=== PATIENT | female | born 1955 | race Caucasian/White ===

== ENCOUNTER 2018-07-28 22:37 | Observation (INO) | payer OTHER ==
[2018-07-29] LABS: Absolute Monocytes 0.2 K/uL (0.1-1.3); Absolute Neutrophil 4.1 K/uL (1.8-8.0); Basophils % 0.9 % (0-1.3); Lymphocytes % 39.7 % (15.3-44.8); MPV 10.9 fL (7.6-11.3); Monocytes % 3.1 % (3.3-12.3); RBC Red Blood Cell Count 4.76 M/uL (3.86-4.86)
[2018-07-29 00:07] LABS: Protime INR 1.07
[2018-07-29 00:23] LABS: ALT/SGPT 26 U/L (12-78); AST/SGOT 20 U/L (15-37); Albumin 4.1 g/dL (3.4-5.0); Alkaline Phosphatase 54 U/L (45-117); BUN Blood Urea Nitrogen 13 mg/dL (7-18); Bicarbonate 27 mmol/L (21-32); Bilirubin Direct < 0.1 mg/dL (0-0.2); Bilirubin Total 0.4 mg/dL (0.2-1.0); Glucose Level 132 mg/dL (74-106); Magnesium 2.1 mg/dL (1.8-2.4); NT PRO-BNP 1579 pg/mL (<125); Potassium 3.3 mmol/L (3.5-5.1); Protein, Total 7.7 g/dL (6.4-8.2); Sodium Level 138 mmol/L (136-145); Troponin (Emerg Dept Use Only) 0.25 ng/mL (0.0-0.045)
[2018-07-29 00:36] LABS: Urine Blood NEGATIVE (NEG); Urine Glucose NEGATIVE (NEG); Urine Protein NEGATIVE (NEG)
[2018-07-29] MEDS ORDERED: ACETAMINOPHEN 500 MG TAB PO PRN (00:46)
[2018-07-29] MEDS ORDERED: MORPHINE 4 MG/ML SYR IV PRN (00:46)
[2018-07-29] MEDS ORDERED: ALPRAZOLAM 0.25 MG TABLET PO PRN (00:46)
--- NOTE | 2018-07-29 00:51 | ER ---
Nurse's Notes [facility] Name: Dimple Cisneros Age: 63 yrs Sex: Female : 1955 Arrival Date: 07/28/2018 Time: 22:41 Bed 14 Private MD: Diagnosis: Unspecified atrial flutter;Chest pain, unspecified;Elevated Troponin Presentation: 07/28 22:40 Presenting complaint: EMS states: chest discomfort 45 minutes prior to consult. cc3 Transition of care: patient was not received from another setting of care. Onset of symptoms was July 28, 2018. Risk Assessment: Do you want to hurt yourself or someone else? Patient reports no desire to harm self or others. Initial Sepsis Screen: Does the patient meet any 2 criteria? No. Patient's initial sepsis screen is negative. Does the patient have a suspected source of infection? No. Patient's initial sepsis screen is negative. Care prior to arrival: Medication(s) given: patient took baby aspirin at home. 22:40 Method Of Arrival: EMS: [facility] cc3 22:40 Acuity: GERBER 3 cc3 Triage Assessment: 22:40 General: Appears in no apparent distress. comfortable, Behavior is calm, cooperative, cc3 appropriate for age. Pain: Complains of pain in central chest pain Pain currently is 3 out of 10 on a pain scale. EENT: No signs and/or symptoms were reported regarding the EENT system. Neuro: Level of Consciousness is awake, alert, obeys commands, Oriented to person, place, time, situation, Appropriate for age. Cardiovascular: Reports chest pain, since 45 minutes prior to consult Patient's skin is warm and dry. Respiratory: Airway is patent Respiratory effort is even, unlabored, Respiratory pattern is regular, symmetrical. GI: Abdomen is round non-distended. : No signs and/or symptoms were reported regarding the genitourinary system. Derm: No signs and/or symptoms reported regarding the dermatologic system. Musculoskeletal: Circulation, motion, and sensation intact. Range of motion: Swelling present in left arm. Historical: - Allergies: 22:40 Lortab; cc3 22:40 Augmentin; cc3 - Home Meds: 22:40 alprazolam 1 mg Oral tab 1 tab BID for Anxiety [Active]; aspirin 81 mg Oral chew 1 tab cc3 once daily [Active]; digoxin 125 mcg Oral tab 1 tab once daily [Active]; folic acid 400 mcg Oral tab 1 tab once daily [Active]; glyburide 5 mg Oral tab 1 tab 2 times per day [Active]; Glipizide Oral [Active]; hydrochlorothiazide 25 mg Oral tab 1 tab once daily [Active]; metoprolol tartrate 25 mg Oral tab 1 tab 2 times per day for Hypertension [Active]; [place]-3 Fish Oil Oral daily [Active]; Probiotic Oral daily [Active]; Vitamin D Oral 5000 unit daily [Active]; - PMHx: 22:40 Atrial Fib; Diabetes - NIDDM; Hypertension; melanoma; cc3 - PSHx: 22:40 melanoma skin cancer surgery; lymph node surgery; cc3 - Immunization history:: Adult Immunizations not up to date. - Social history:: Smoking status: Patient uses tobacco products, smokes one pack cigarettes per day. - Ebola Screening: : No symptoms or risks identified at this time. Screenin:40 Abuse screen: Denies threats or abuse. Denies injuries from another. Nutritional cc3 screening: No deficits noted. Tuberculosis screening: No symptoms or risk factors identified. Fall Risk Ambulatory Aid- None/Bed Rest/Nurse Assist (0 pts). Gait- Normal/Bed Rest/Wheelchair (0 pts) Mental Status- Oriented to own ability (0 pts). Assessment: 22:40 Pain: Pain radiates to back Pain began 45 minutes prior to consult. cc3 22:40 Reassessment: Noted to have IV cannula gauge 20 at the left forearm inserted by EMS. cc3 23:30 Reassessment: Patient appears in no apparent distress at this time. Patient and/or cc3 family updated on plan of care and expected duration. Pain level reassessed. Patient is alert, oriented x 3, equal unlabored respirations, skin warm/dry/pink. 07/29 00:15 Reassessment: Patient appears in no apparent distress at this time. Patient and/or cc3 family updated on plan of care and expected duration. Pain level reassessed. Patient is alert, oriented x 3, equal unlabored respirations, skin warm/dry/pink. 01:10 Reassessment: Patient appears in no apparent distress at this time. Patient and/or cc3 family updated on plan of care and expected duration. Pain level reassessed. Patient is alert, oriented x 3, equal unlabored respirations, skin warm/dry/pink. Patient for admission, room available in 405, called for report but was told that the nurse who will receive will call me back. 01:20 Reassessment: Report called and handed over to RN Julia Pacheco for continuity of care. cc3 01:50 Reassessment: Patient appears in no apparent distress at this time. Patient and/or cc3 family updated on plan of care and expected duration. Pain level reassessed. Patient is alert, oriented x 3, equal unlabored respirations, skin warm/dry/pink. Patient left ER for admission vitally stable escorted by county program technician Marlin and the patient's daughter. Vital Signs: 07/28 22:40 BP 156 / 74; Pulse 81; Resp 19 S; Temp 98.4(O); Pulse Ox 97% on R/A; Weight 108.86 kg cc3 (R); Height 5 ft. 5 in. (165.10 cm) (R); Pain 3/10; 23:15 BP 133 / 74; Pulse 78; Resp 18 S; Pulse Ox 96% on R/A; cc3 07/29 00:44 BP 151 / 72; Pulse 90; Resp 21 S; Pulse Ox 98% on R/A; cc3 01:14 BP 145 / 82; Pulse 88; Resp 20 S; Pulse Ox 97% on R/A; cc3 07/28 22:40 Body Mass Index 39.94 (108.86 kg, 165.10 cm) cc3 ED Course: 07/28 22:40 Patient maintains SpO2 saturation greater than 95% on room air. cc3 22:40 Arm band placed on right wrist. Patient notified of wait time. cc3 22:40 Placed in gown. Bed in low position. Call light in reach. Side rails up X 1. Cardiac cc3 monitor on. Pulse ox on. NIBP on. 22:41 Patient arrived in ED. bb 22:42 Emily Rogel is Primary Nurse. cc3 22:47 Triage completed. cc3 23:35 Inserted saline lock: 20 gauge in right forearm, using aseptic technique. Blood cc3 collected. 23:39 [facility] Winters F[facility]-C [facility]. kb 23:39 Balaji Zepeda MD is Attending Physician. kb 23:53 X-ray completed. Portable x-ray completed in exam room. Patient tolerated procedure sg4 well. 23:54 XRAY Chest (1 view) In Process Unspecified. EDMS 07/29 00:49 Jody Lombardo MD is Hospitalizing Provider. kb 01:20 No provider procedures requiring assistance completed. Patient admitted, IV remains in cc3 place. Administered Medications: 00:50 Drug: Aspirin Chewable Tablet 324 mg {Note: 3 tabs given now, 1 tab baby aspirin taken cc3 by patient at home at 2030H.} Route: PO; 01:15 Follow up: Response: No adverse reaction cc3 00:55 Drug: Lovenox 1 mg/kg Route: Sub-Q; Site: right lower abdomen; cc3 01:15 Follow up: Response: No adverse reaction cc3 Outcome: 00:50 Decision to Hospitalize by Provider. kb 01:20 Admitted to Tele accompanied by tech, family with patient, via stretcher, room 405, cc3 with chart, Report called to ADI Pacheco 01:20 Condition: stable 01:20 Instructed on the need for admit, Demonstrated understanding of instructions. 01:52 Patient left the ED. cc3 Signatures: Dispatcher [employer] EDMS Zarina Winters, ERGONOMIST-C ERGONOMIST-CkShavon Dickey RN RN bb Cordel, Charlene cc3 Yovana Finley sg4 Corrections: (The following items were deleted from the chart) 07/28 23:13 22:40 BP 156 / 74; Pulse 81bpm; Resp 19bpm; Spontaneous; Pulse Ox 97% RA; cc3 cc3 07/29 00:49 00:44 Pulse 90bpm; Resp 21bpm; Spontaneous; Pulse Ox 98% RA; cc3 cc3 03:43 07/28 22:40 Pain: Pain radiates to back Pain began 45 minutes prior to consult cc3 cc3
--- NOTE | 2018-07-29 00:52 | EDPHYS ---
Physician Documentation [facility] Name: Dimple Cisneros Age: 63 yrs Sex: Female : 1955 Arrival Date: 07/28/2018 Time: 22:41 Bed 14 Private MD: ED Physician Balaji Zepeda HPI: 07/29 00:51 This 63 yrs old Female presents to ER via EMS with complaints of Chest Pain. kb 00:51 The patient or guardian reports chest pain that is located primarily in the anterior kb chest wall, left. Onset: today. The pain radiates to Associated signs and symptoms: Pertinent positives: palpitations, Pertinent negatives: abdominal pain, cough, diaphoresis, dizziness, headache, lower extremity pain, lower extremity swelling, lightheadedness, nausea, near syncope, recent travel, shortness of breath, syncope, vomiting. The chest pain is described as aching. Duration: The patient or guardian reports multiple episodes. Modifying factors: The symptoms are alleviated by nothing. the symptoms are aggravated by nothing. Severity of pain: At its worst the pain was moderate in the emergency department the pain is unchanged. The patient has not experienced similar symptoms in the past. The patient has not recently seen a physician. Historical: - Allergies: 07/28 22:40 Lortab; cc3 22:40 Augmentin; cc3 - Home Meds: 22:40 alprazolam 1 mg Oral tab 1 tab BID for Anxiety [Active]; aspirin 81 mg Oral chew 1 tab cc3 once daily [Active]; digoxin 125 mcg Oral tab 1 tab once daily [Active]; folic acid 400 mcg Oral tab 1 tab once daily [Active]; glyburide 5 mg Oral tab 1 tab 2 times per day [Active]; Glipizide Oral [Active]; hydrochlorothiazide 25 mg Oral tab 1 tab once daily [Active]; metoprolol tartrate 25 mg Oral tab 1 tab 2 times per day for Hypertension [Active]; [place]-3 Fish Oil Oral daily [Active]; Probiotic Oral daily [Active]; Vitamin D Oral 5000 unit daily [Active]; - PMHx: 22:40 Atrial Fib; Diabetes - NIDDM; Hypertension; melanoma; cc3 - PSHx: 22:40 melanoma skin cancer surgery; lymph node surgery; cc3 - Immunization history:: Adult Immunizations not up to date. - Social history:: Smoking status: Patient uses tobacco products, smokes one pack cigarettes per day. - Ebola Screening: : No symptoms or risks identified at this time. ROS: 07/29 00:50 Constitutional: Negative for fever, chills, and weight loss, Neck: Negative for injury, kb pain, and swelling, Respiratory: Negative for shortness of breath, cough, wheezing, and pleuritic chest pain, Abdomen/GI: Negative for abdominal pain, nausea, vomiting, diarrhea, and constipation, Back: Negative for injury and pain, MS/Extremity: Negative for injury and deformity, Skin: Negative for injury, rash, and discoloration, Neuro: Negative for headache, weakness, numbness, tingling, and seizure. Cardiovascular: Positive for chest pain, palpitations, Negative for edema, orthopnea, paroxysmal nocturnal dyspnea. Exam: 00:51 Constitutional: This is a well developed, well nourished patient who is awake, alert, kb and in no acute distress. Head/Face: Normocephalic, atraumatic. Chest/axilla: Normal chest wall appearance and motion. Nontender with no deformity. No lesions are appreciated. Respiratory: Lungs have equal breath sounds bilaterally, clear to auscultation and percussion. No rales, rhonchi or wheezes noted. No increased work of breathing, no retractions or nasal flaring. Abdomen/GI: Soft, non-tender, with normal bowel sounds. No distension or tympany. No guarding or rebound. No evidence of tenderness throughout. Skin: Warm, dry with normal turgor. Normal color with no rashes, no lesions, and no evidence of cellulitis. MS/ Extremity: Pulses equal, no cyanosis. Neurovascular intact. Full, normal range of motion. Neuro: Awake and alert, GCS 15, oriented to person, place, time, and situation. Cranial nerves II-XII grossly intact. Motor strength 5/5 in all extremities. Sensory grossly intact. Cerebellar exam normal. Normal gait. 00:51 Cardiovascular: Rate: normal, Rhythm: irregularly irregular, Pulses: no pulse deficits are appreciated, Heart sounds: normal. Vital Signs: 07/28 22:40 BP 156 / 74; Pulse 81; Resp 19 S; Temp 98.4(O); Pulse Ox 97% on R/A; Weight 108.86 kg cc3 (R); Height 5 ft. 5 in. (165.10 cm) (R); Pain 3/10; 23:15 BP 133 / 74; Pulse 78; Resp 18 S; Pulse Ox 96% on R/A; cc3 07/29 00:44 BP 151 / 72; Pulse 90; Resp 21 S; Pulse Ox 98% on R/A; cc3 01:14 BP 145 / 82; Pulse 88; Resp 20 S; Pulse Ox 97% on R/A; cc3 07/28 22:40 Body Mass Index 39.94 (108.86 kg, 165.10 cm) cc3 MDM: 07/28 23:40 Patient medically screened. kb 07/29 00:49 Data reviewed: vital signs, nurses notes. Data interpreted: Pulse oximetry: on room air kb is 98 %. Interpretation: normal. Counseling: I had a detailed discussion with the patient and/or guardian regarding: the historical points, exam findings, and any diagnostic results supporting the discharge/admit diagnosis, lab results, radiology results, the need for further work-up and treatment in the hospital. Physician consultation: Jody Lombardo MD was contacted at 00:49, regarding admission, to the telemetry unit. patient's condition, and will see patient in ED, shortly. 07/28 23:40 Order name: Basic Metabolic Panel; Complete Time: 00:27 kb 07/28 23:40 Order name: CBC with Diff; Complete Time: 00:03 kb 07/28 23:40 Order name: LFT's; Complete Time: 00:27 kb 07/28 23:40 Order name: Magnesium; Complete Time: 00:27 kb 07/28 23:40 Order name: NT PRO-BNP; Complete Time: 00:27 kb 07/28 23:40 Order name: PT-INR; Complete Time: 00:27 kb 07/28 23:40 Order name: Troponin (emerg Dept Use Only); Complete Time: 00:27 kb 07/29 00:29 Order name: Urine Dipstick--Ancillary (enter results); Complete Time: 00:46 mw2 07/29 00:50 Order name: Basic Metabolic Panel EDMS 07/29 00:50 Order name: Basic Metabolic Panel EDMS 07/29 00:50 Order name: CBC with Automated Diff EDMS 07/29 00:50 Order name: CBC with Automated Diff EDMS 07/29 00:50 Order name: Lipid Profile EDMS 07/29 00:50 Order name: Lipid Profile EDMS 07/28 23:40 Order name: XRAY Chest (1 view) kb 07/28 23:40 Order name: EKG; Complete Time: 23:41 kb 07/28 23:40 Order name: Cardiac monitoring; Complete Time: 23:42 kb 07/28 23:40 Order name: EKG - Nurse/Tech; Complete Time: 23:42 kb 07/28 23:40 Order name: IV Saline Lock; Complete Time: 23:42 kb 07/28 23:40 Order name: Labs collected and sent; Complete Time: 23:42 kb 07/29 00:46 Order name: EKG; Complete Time: 00:46 kb 07/29 00:50 Order name: Heart Healthy [facility] 07/29 00:50 Order name: Echo with Doppler [facility] 07/29 00:50 Order name: EKG Electrocardiogram [facility] 07/29 00:50 Order name: EKG Electrocardiogram [facility] 07/29 00:50 Order name: Troponin I [facility] 07/29 00:50 Order name: Troponin I [facility] 07/29 00:50 Order name: Troponin I [facility] 07/28 23:40 Order name: O2 Per Protocol; Complete Time: 23:42 kb 07/28 23:40 Order name: O2 Sat Monitoring; Complete Time: 23:42 kb 07/29 00:46 Order name: EKG - Nurse/Tech; Complete Time: 00:59 kb Administered Medications: 00:50 Drug: Aspirin Chewable Tablet 324 mg {Note: 3 tabs given now, 1 tab baby aspirin taken cc3 by patient at home at 2030H.} Route: PO; 01:15 Follow up: Response: No adverse reaction cc3 00:55 Drug: Lovenox 1 mg/kg Route: Sub-Q; Site: right lower abdomen; cc3 01:15 Follow up: Response: No adverse reaction cc3 Disposition: 07/29/18 00:50 Hospitalization ordered by Jody Lombardo for Inpatient Admission. Preliminary diagnosis are Unspecified atrial flutter, Chest pain, unspecified, Elevated Troponin. - Bed requested for Telemetry/MedSurg (Inpatient). - Status is Inpatient Admission. cc3 - Condition is Stable. - Problem is new. - Symptoms are unchanged. UTI on Admission? No Signatures: Dispatcher [employer] EDMS Zarina Winters, OPTICAL LAB TECHNICIAN-C OPTICAL LAB TECHNICIAN-Fredydb Savanna Nolen RN RN Emily Rogel cc3 Corrections: (The following items were deleted from the chart) 00:55 00:50 Hospitalization Ordered by Jody Lombardo MD for Inpatient Admission. Preliminary mw diagnosis is Unspecified atrial flutter; Chest pain, unspecified; Elevated Troponin. Bed requested for Telemetry/MedSurg (Inpatient). Status is Inpatient Admission. Condition is Stable. Problem is new. Symptoms are unchanged. UTI on Admission? No. kb 01:52 00:55 07/29/2018 00:50 Hospitalization Ordered by Jody Lombardo MD for Inpatient cc3 Admission. Preliminary diagnosis is Unspecified atrial flutter; Chest pain, unspecified; Elevated Troponin. Bed requested for Telemetry/MedSurg (Inpatient). Status is Inpatient Admission. Condition is Stable. Problem is new. Symptoms are unchanged. UTI on Admission? No. mw
[2018-07-29 02:06] VITALS: BMI 36.9
[2018-07-29 07:19] LABS: HDL Cholesterol 26 mg/dL (40-60); LDL Cholesterol, Calculated ND (<130); Troponin I 0.25 ng/mL (0.0-0.045)
[2018-07-29 07:33] LABS: LDL, Direct 168 mg/dL (100-129)
--- NOTE | 2018-07-29 07:55 | P.HP ---
Certification for Inpatient Patient admitted to: Observation With expected LOS: <2 Midnights Patient will require the following post-hospital care: None Practitioner: I am a practitioner with admitting privileges, knowledge of patient current condition, hospital course, and medical plan of care. Services: Services provided to patient in accordance with Admission requirements found in Title 42 Section 412.3 of the Code of Federal Regulations Patient History Date of Service: 07/29/18 Reason for admission: Chest pain rule out acute coronary syndrome History of Present Illness: Patient is a 63-year-old female who comes into the hospital with chest pain. Pain was mainly in the sternal region. She has had a lot of stressors as she has had multiple family members . She also has a difficult relationship with her . She came to the emergency room for further evaluation. In the ER her initial troponin was elevated. Her chest pain is pretty much resolved. She has no complaints at this time. Hemodynamically she is stable. At this time will admit patient to the hospital for further workup. Cardiology consultation is pending. Allergies acetaminophen [From Lortab] Allergy (Verified 07/29/18 02:37) Hives/Rash hydrocodone [From Lortab] Allergy (Verified 07/29/18 02:37) Hives/Rash amoxicillin [From Augmentin] Adverse Reaction (Verified 07/29/18 02:37) Hives/Rash clavulanic acid [From Augmentin] Adverse Reaction (Verified 07/29/18 02:37) Hives/Rash Home Medications: ALPRAZolam [Xanax*] 1 mg PO BID 07/24/15 Aspirin Chewable [Aspirin Chewable*] 81 mg PO BEDTIME 07/24/15 Digoxin [Digitek] 125 mcg PO DAILY 07/24/15 Folic Acid/Vit Bcomp,C [Balanced B-Complex Caplet] 500 mcg PO BEDTIME 07/24/15 Glyburide [Diabeta] 2.5 mg PO DAILY 07/24/15 hydroCHLOROthiazide [Hydrodiuril*] 25 mg PO DAILY 07/24/15 Cholecalciferol (Vitamin D3) [Vitamin D 5,000 IU Cap*] 1 cap PO DAILY 07/29/18 - Past Medical/Surgical History Has patient received pneumonia vaccine in the past: No Diabetic: Yes -: Diabetes mellitus, diet controlled -: Lymphoma -: Metastatic melanoma -: Atrial fibrillation -: Depression -: Hyperlipidemia -: Tobacco abuse -: Mastoid Ear Surgery 1973 -: Hysterectomy 1978 -: Lymph node resection left arm -: Melanoma removal left arm -: tooth pick removal on left foot Psychosocial/ Personal History: The patient is . She has 6 children. - Family History Mother Medical History: Heart disease, Hypertension Brother Medical History: Heart disease, Cancer - Social History Smoking Status: Current every day smoker Alcohol use: No CD- Drugs: No Caffeine use: No Place of Residence: Home Review of Systems 10-point ROS is otherwise unremarkable Physical Examination - Vital Signs Temperature: 97.7 F Blood Pressure: 120/69 Pulse: 76 Respirations: 18 Pulse Ox (%): 96 - Physical Exam General: Alert, In no apparent distress, Oriented x3 HEENT: Atraumatic, PERRLA, Mucous membr. moist/pink, EOMI, Sclerae nonicteric Neck: Supple, 2+ carotid pulse no bruit, No LAD, Without JVD or thyroid abnormality Respiratory: Clear to auscultation bilaterally, Normal air movement Cardiovascular: Regular rate/rhythm, Normal S1 S2, No murmurs Gastrointestinal: Normal bowel sounds, Soft and benign, Non-distended, No tenderness Musculoskeletal: No clubbing, No swelling, No tenderness Integumentary: No rashes Neurological: Normal gait, Normal speech, Normal strength at 5/5 x4 extr, Normal tone, Sensation intact, Cranial nerves 3-12 intact, Normal affect Lymphatics: No axilla or inguinal lymphadenopathy - Studies Laboratory Data (last 24 hrs) 07/28/18 23:35: PT 12.6 H, INR 1.07 07/28/18 23:35: WBC 7.5, Hgb 15.6 H, Hct 45.0, Plt Count 200 07/28/18 23:35: Sodium 138, Potassium 3.3 L, BUN 13, Creatinine 0.92, Glucose 132 H, Magnesium 2.1, Total Bilirubin 0.4, AST 20, ALT 26, Alkaline Phosphatase 54 Assessment & Plan - Problems (Diagnosis) (1) A-fib Onset Date: 09/01/16 Current Visit: No Status: Acute (2) Diabetes Current Visit: No Status: Acute (3) Elevated troponin Current Visit: No Status: Acute (4) Hx of breast cancer Current Visit: No Status: Acute (5) Morbid obesity with BMI of 40.0-44.9, adult Current Visit: No Status: Acute (6) Depression Current Visit: No Status: Chronic Qualifiers: (7) Diabetes mellitus Current Visit: No Status: Chronic Qualifiers: (8) History of melanoma Current Visit: No Status: Chronic (9) Hyperlipidemia Current Visit: No Status: Chronic Qualifiers: (10) Hypertension Current Visit: No Status: Chronic Qualifiers: (11) Tobacco abuse Current Visit: No Status: Chronic - Plan 1. Serial troponins and EKG 2. Cardiology consultation 3. Echocardiogram and stress test may need to be done as an outpatient; we will await Cardiology input 4. Anti-platelet therapy, anti coagulation, beta-scott, statin, and O2 as needed 5. IV morphine for pain 6. Nitro p.r.n. 7. She may benefit from an antidepressant with so much going on around her. 8. GI and DVT prophylaxis Discharge Plan: Home Plan to discharge in: 48 Hours - Advance Directives Does patient have a Living Will: No Does patient have a Durable POA for Healthcare: No - Code Status/Comfort Care Code Status Assessed: Yes Code Status: Full Code Critical Care: No Time Spent Managing PTS Care (In Minutes): 50
[2018-07-29] MEDS ORDERED: METOPROLOL TAR 50 MG TAB PO SCH (09:00)
[2018-07-29] MEDS ORDERED: ASPIRIN EC 81 MG TAB PO SCH (09:00)
[2018-07-29] MEDS ORDERED: LISINOPRIL 10 MG TAB PO SCH (09:00)
[2018-07-29] MEDS ORDERED: DIGOXIN 0.125 MG TABLET PO SCH (09:00)
[2018-07-29] MEDS ORDERED: VITAMIN D 5,000 UNIT CAP PO SCH (09:00)
[2018-07-29] MEDS ORDERED: ALPRAZOLAM 1 MG TABLET PO SCH (09:00)
--- NOTE | 2018-07-29 10:50 | RAD REPORT ---
EXAM DESCRIPTION: Tanya Single View07/28/2018 11:54 pm CLINICAL HISTORY: Chest pain COMPARISON: September 2017 FINDINGS: The lungs appear clear of acute infiltrate. The heart is mildly enlarged IMPRESSION: No acute abnormalities displayed
[2018-07-29] MEDS ORDERED: POTASSIUM CL SA 10 MEQ TAB PO ONE ×3 (10:58→11:18)
[2018-07-29] MEDS ORDERED: ENOXAPARIN 100 MG/ML SYR SQ SCH (11:30)
[2018-07-29 12:31] VITALS: O2SAT 96
[2018-07-29] MEDS ORDERED: NITROGLYCERIN 0.4 MG/TAB SL PRN (13:16)
--- NOTE | 2018-07-29 13:16 | P.PN ---
Subjective Date of Service: 07/29/18 Primary Care Provider: Dr. Dooley; Cardiology-Dr. Jean Chief Complaint: Chest pain rule out acute coronary syndrome Subjective: Improving Physical Examination - Vital Signs Temperature: 97.0 F Blood Pressure: 120/80 Pulse: 70 Respirations: 18 Pulse Ox (%): 96 - Physical Exam General: Alert, In no apparent distress, Oriented x3, Cooperative HEENT: Atraumatic Neck: Supple Respiratory: Clear to auscultation bilaterally, Normal air movement Cardiovascular: Irregular heart rate/rhythm (Atrial fibrillation, rate controlled) Gastrointestinal: Normal bowel sounds, Soft and benign, Non-distended, No tenderness, No masses, No rebound, No guarding Musculoskeletal: No erythema, No tenderness, No warmth Integumentary: No tenderness/swelling, No erythema, No warmth, No cyanosis Neurological: Normal speech, Normal strength at 5/5 x4 extr, Normal tone - Studies Laboratory Data (last 24 hrs) 07/28/18 23:35: PT 12.6 H, INR 1.07 07/28/18 23:35: WBC 7.5, Hgb 15.6 H, Hct 45.0, Plt Count 200 07/28/18 23:35: Sodium 138, Potassium 3.3 L, BUN 13, Creatinine 0.92, Glucose 132 H, Magnesium 2.1, Total Bilirubin 0.4, AST 20, ALT 26, Alkaline Phosphatase 54 Medications List Reviewed: Yes Assessment & Plan Discharge Plan: Home Plan to discharge in: 48 Hours Physician Review Additional Text: Impression: Chest pain with noted elevated troponin likely underlying CAD with unstable angina Hypertension Diabetes mellitus Chronic atrial fibrillation not on chronic anti coagulation therapy Hyperlipidemia Plan: Chest pain with noted elevated troponin likely underlying CAD with unstable angina: Patient on anti coagulation therapy. Continue with aspirin and blood pressure control. Troponin improved. Will discuss with Cardiology for recommendation. Patient may require further evaluation. Hypertension: Continue with blood pressure medication. Will monitor and adjust appropriately. Diabetes mellitus: Will continue with Accu-Cheks and sliding scale. Will check A1c. Chronic atrial fibrillation not on chronic anti coagulation therapy: Continue monitor closely. Await further recommendations from cardiology. Hyperlipidemia: Will start Lipitor. Time Spent Managing Pts Care (In Minutes): 55
[2018-07-29] MEDS ORDERED: GLUCAGON 1 MG/VIAL IM PRN (14:05)
[2018-07-29] MEDS ORDERED: D50W 25 GM/50 ML SYRINGE IV PRN (14:05)
--- NOTE | 2018-07-29 14:14 | EKG ---
Test Date: 2018-07-28 Test Time: 23:18:12 Editor & Co Founder: JAN MEASUREMENT RESULTS: Intervals: Rate: 86 MS: QRSD: 82 QT: 380 QTc: 454 [place]: P: MS: QRS: 57 T: 159 INTERPRETIVE STATEMENTS: Atrial fibrillation Minimal voltage criteria for LVH, may be normal variant Septal infarct, age undetermined ST & T wave abnormality, consider lateral ischemia Abnormal ECG Compared to ECG 09/23/2017 14:38:24 Left ventricular hypertrophy now present Myocardial infarct finding now present Possible ischemia now present ST (T wave) deviation still present Electronically Signed On 07-29-18 14:13:02 MANAGER PHOTO by Anthony Jean
--- NOTE | 2018-07-29 14:14 | EKG ---
Test Date: 2018-07-29 Test Time: 00:49:37 Heel Scourer: JAN MEASUREMENT RESULTS: Intervals: Rate: 82 NM: QRSD: 82 QT: 414 QTc: 483 [place]: P: NM: QRS: 41 T: 188 INTERPRETIVE STATEMENTS: Atrial fibrillation Minimal voltage criteria for LVH, may be normal variant ST & T wave abnormality, consider lateral ischemia Prolonged QT Abnormal ECG Compared to ECG 07/28/2018 23:18:12 Prolonged QT interval now present Myocardial infarct finding no longer present ST (T wave) deviation still present Possible ischemia still present Electronically Signed On 07-29-18 14:13:00 ACID CONDITIONING WORKER by Anthony Jean
[2018-07-29] MEDS ORDERED: INSULIN -REGULAR HUMAN 50 UNIT/0.5 ML ML SQ SCH (16:30)
--- NOTE | 2018-07-29 16:31 | P.DS ---
Admission Date: 07/29/18 Discharge Date: 07/29/18 Primary Care Provider: Dr. Dooley; Cardiology-Dr. Jean Disposition: ROUTINE DISCHARGE Discharge Condition: GOOD Reason for Admission: Chest pain rule out acute coronary syndrome Consultations: Cardiology-Dr. Jean Procedures: Medical problem list: Chest pain with noted elevated troponin likely underlying CAD with unstable angina Hypertension Diabetes mellitus Chronic atrial fibrillation not on chronic anti coagulation therapy Hyperlipidemia Depression with Anxiety Brief History of Present Illness: 63-year-old female presented to the emergency room with chest pain. Patient with history of atrial fibrillation, hypertension, diabetes and depression. Patient under a great deal of stress at home. Patient was evaluated in the emergency room. Troponin slightly elevated. Patient was admitted for further evaluation. Hospital Course: Patient presented with chest pain. Patient with history of atrial fibrillation not on chronic anti coagulation therapy, hypertension, diabetes and hyperlipidemia. Patient evaluated by Cardiology. Cardiology has seen patient in the past. Previous heart catheterization 2 years ago showed normal coronaries. Patient had slight elevation in troponin but this improved. Chest pain resolved. Cardiology recommends to continue with aspirin 81 mg daily. Patient will follow up with Cardiology this week for outpatient stress test. No need for cardiac intervention at this time. Patient will be given nitroglycerin to be use as needed for chest pain. Patient with hypertension. Blood pressure slightly elevated. Medications adjusted. Hydrochlorothiazide discontinued. Metoprolol has been increased. New medication includes lisinopril. At discharge she will continue with lisinopril 10 mg daily and metoprolol 50 mg 1 pill twice daily. Recommendation is to maintain blood pressures less 150/80. Further adjustment can be done by her PCP or cardiology. Patient has diabetes mellitus type 2. At discharge she will continue with Diabeta 2.5 mg daily. Recommendation is to maintain blood sugars less 140 fasting and less than 200 after meals. Further adjustment can be done by her PCP. Patient has hyperlipidemia. New medications includes Lipitor. At discharge she will continue with Lipitor 40 mg daily. Patient with depression and anxiety. Patient may continue with Xanax as needed for anxiety. Recommend for patient to follow up with her PCP to further address. Patient may require further medication and follow up with psychiatry or counselor. Patient with recent stressors. Vital Signs/Physical Exam: Temp Pulse Resp BP Pulse Ox 97.0 F 70 18 120/80 96 07/29/18 13:15 07/29/18 13:15 07/29/18 13:15 07/29/18 13:15 07/29/18 13:15 General: Alert, In no apparent distress, Oriented x3, Cooperative HEENT: Atraumatic Neck: Supple Respiratory: Clear to auscultation bilaterally, Normal air movement Cardiovascular: Normal pulses, Regular rate/rhythm Gastrointestinal: Normal bowel sounds, Soft and benign, Non-distended, No tenderness, No masses, No rebound, No guarding Musculoskeletal: No erythema, No tenderness, No warmth Integumentary: No tenderness/swelling, No erythema, No warmth, No cyanosis Neurological: Normal speech, Normal strength at 5/5 x4 extr, Normal tone, Normal affect Laboratory Data at Discharge: WBC 7.5 K/uL (4.3-10.9) 07/28/18 23:35 Hgb 15.6 g/dL (12.0-15.0) H 07/28/18 23:35 Hct 45.0 % (36.0-45.0) 07/28/18 23:35 Plt Count 200 K/uL (152-406) 07/28/18 23:35 PT 12.6 SECONDS (9.5-12.5) H 07/28/18 23:35 INR 1.07 07/28/18 23:35 Sodium 138 mmol/L (136-145) 07/28/18 23:35 Potassium 3.3 mmol/L (3.5-5.1) L 07/28/18 23:35 BUN 13 mg/dL (7-18) 07/28/18 23:35 Creatinine 0.92 mg/dL (0.55-1.3) 07/28/18 23:35 Glucose 132 mg/dL (74-106) H 07/28/18 23:35 Magnesium 2.1 mg/dL (1.8-2.4) 07/28/18 23:35 Total Bilirubin 0.4 mg/dL (0.2-1.0) 07/28/18 23:35 AST 20 U/L (15-37) 07/28/18 23:35 ALT 26 U/L (12-78) 07/28/18 23:35 Alkaline Phosphatase 54 U/L (45-117) 07/28/18 23:35 Troponin I 0.20 ng/mL (0.0-0.045) H 07/29/18 14:09 Triglycerides 501 mg/dL (<150) H 07/29/18 06:25 Cholesterol 264 mg/dL (<200) H 07/29/18 06:25 LDL Cholesterol Direct 168 mg/dL (100-129) H 07/29/18 06:25 HDL Cholesterol 26 mg/dL (40-60) L 07/29/18 06:25 Cholesterol/HDL Ratio 10.15 07/29/18 06:25 Home Medications: ALPRAZolam [Xanax*] 1 mg PO BID 07/24/15 Aspirin Chewable [Aspirin Chewable*] 81 mg PO BEDTIME 07/24/15 Digoxin [Digitek] 125 mcg PO DAILY 07/24/15 Folic Acid/Vit Bcomp,C [Balanced B-Complex Caplet] 500 mcg PO BEDTIME 07/24/15 Glyburide [Diabeta] 2.5 mg PO DAILY 07/24/15 Atorvastatin Calcium [Lipitor] 40 mg PO BEDTIME #30 tab 07/29/18 Cholecalciferol (Vitamin D3) [Vitamin D 5,000 IU Cap*] 1 cap PO DAILY 07/29/18 Lisinopril [Prinivil*] 10 mg PO DAILY #30 tab 07/29/18 Metoprolol Tartrate [Lopressor*] 50 mg PO BID #60 tab 07/29/18 Nitroglycerin [Nitrostat*] 0.4 mg SL UD PRN #30 tab 07/29/18 New Medications: Atorvastatin Calcium [Lipitor] 40 mg PO BEDTIME #30 tab Lisinopril [Prinivil*] 10 mg PO DAILY #30 tab Metoprolol Tartrate [Lopressor*] 50 mg PO BID #60 tab Nitroglycerin [Nitrostat*] 0.4 mg SL UD PRN #30 tab PRN Reason: Chest Pain Patient Discharge Instructions: 1. Patient will follow up with her PCP within 1 week and with Cardiology in 1 week to follow up this hospitalization. 2. Patient presented with chest pain. Patient with history of atrial fibrillation not on chronic anti coagulation therapy, hypertension, diabetes and hyperlipidemia. Patient evaluated by Cardiology. Cardiology has seen patient in the past. Previous heart catheterization 2 years ago showed normal coronaries. Patient had slight elevation in troponin but this improved. Chest pain resolved. Cardiology recommends to continue with aspirin 81 mg daily. Patient will follow up with Cardiology this week for outpatient stress test. No need for cardiac intervention at this time. Patient will be given nitroglycerin to be use as needed for chest pain. 3. Patient with hypertension. Blood pressure slightly elevated. Medications adjusted. Hydrochlorothiazide discontinued. Metoprolol has been increased. New medication includes lisinopril. At discharge she will continue with lisinopril 10 mg daily and metoprolol 50 mg 1 pill twice daily. Recommendation is to maintain blood pressures less 150/80. Further adjustment can be done by her PCP or cardiology. 4. Patient has diabetes mellitus type 2. At discharge she will continue with Diabeta 2.5 mg daily. Recommendation is to maintain blood sugars less 140 fasting and less than 200 after meals. Further adjustment can be done by her PCP. 5. Patient has hyperlipidemia. New medications includes Lipitor. At discharge she will continue with Lipitor 40 mg daily. 6. Patient with depression and anxiety. Patient may continue with Xanax as needed for anxiety. Recommend for patient to follow up with her PCP to further address. Patient may require further medication and follow up with psychiatry or counselor. Patient with recent stressors. Diet: AHA Activity: Ad nabil Time spent managing pt's care (in minutes): 55
[2018-07-29 16:55] VITALS: BP 102/59; TEMP 96.6
[2018-07-29] MEDS ORDERED: ATORVASTATIN 40 MG TAB PO SCH (21:00)
[2018-07-29] MEDS ORDERED: VITAMIN B COMPLEX 1 CAP PO SCH (21:00)
--- NOTE | 2018-07-31 00:22 | CON ---
Date of Consultation: 07/29/[address] Mendez' service on 07/29/2018. I saw the patient on 07/29/2018. Reason For Consultation: Chest pain and atrial fibrillation. History Of Present Illness: Ms. Cisneros is a 63-year-old woman. She is very well known to me from prev ious office visits and admission. She has paroxysmal atrial fibrillation, diabetes, hypertension, [place] PD. Has a history of melanoma in the past. She has refused to be on anticoagulants in the past. Tomlin s been under a lot of stress. Had a rapid episode of atrial fibrillation with some chest pain with i t and came into the emergency room. She is feeling much better now. Denies nausea, vomiting, diapho resis, PND, orthopnea, pedal edema, or syncope. She had a troponin of 0.25. BNP was 1579. Her trig lyceride was 501, cholesterol of 264, and LDL of 108. Allergies: INCLUDE TYLENOL, CODEINE, AND AUGMENTIN. Review of Systems: Negative. Social History: Negative. Family History: Positive for heart disease, both sides of the family. Medications: Include Xanax, aspirin, digoxin, hydrochlorothiazide, and glyburide. Physical Examination: General: Ms. Cisneros was in no acute distress. She was just anxious. She was in atrial fibrillation a t a rate of about 80. Afebrile. HEENT: Negative. Neck: Supple without any bruit, lymphadenopathy, JVD, or thyromegaly. Chest: Clear to auscultation and percussion. Cardiac: Revealed atrial fibrillation. No murmurs, gallops, or rubs. Abdomen: Benign. Extremities: Revealed no clubbing, cyanosis, or edema. Neurological: Nonfocal. Skin: Dry and intact. She has adequate pulses bilaterally distally in the lower extremities. Diagnostic Data: As stated earlier. Also included was a normal heart catheterization in 2013. Impression And Plan: 1.Elevated troponin secondary to atrial fibrillation. 2.Elevated BNP secondary to atrial fibrillation. 3.Dyslipidemia, not treated. She needs to be on a statin and possibly fenofibrate. 4.Anxiety. 5.Hypertension. 6.Diabetes. 7.History of melanoma. Ms. Cisneros had a normal heart catheterization in 2013. I certainly would not keep her in the hospital for any further cardiac workup. I brought up the issue of anticoagulation. She again refuses except for aspirin. I think it has been 5 years since her heart catheterization, and she has many risk fac tors as stated earlier including tobacco use, and I believe another echocardiogram and Lexiscan shoul d be done, and I can certainly do that as an outpatient. LUÍS/BREE Voice ID: [id number] Report ID: [id number]
== END 2018-07-29 17:32 | disposition home or self-care (01) ==
LOC: ER 22:37 → ERHOLD 07-29 00:47 → 4TH 07-29 01:23
PROVIDERS: ADMIT Hospitalist; ATTEND Hospitalist
DX: R07.9 Chest pain, unspecified (principal); R79.89 Other specified abnormal findings of blood chemistry; E11.9 Type 2 diabetes mellitus without complications; I48.91 Unspecified atrial fibrillation; E78.5 Hyperlipidemia, unspecified; I10 Essential (primary) hypertension; E66.01 Morbid (severe) obesity due to excess calories; Z68.37 Body mass index [BMI] 37.0-37.9, adult; F41.8 Other specified anxiety disorders; Z85.820 Personal history of malignant melanoma of skin; Z85.3 Personal history of malignant neoplasm of breast; F17.210 Nicotine dependence, cigarettes, uncomplicated; Z88.0 Allergy status to penicillin
CPT/HCPCS: 36415; 71045; 80048; 80061; 80076; 81003; 82962; 83735; 83880; 84484; 85025; 85610; 93005; G0378; J1650

== ENCOUNTER 2020-02-28 01:58 | Observation (INO) | payer OTHER ==
[2020-02-28 03:13] LABS: Protime INR 1.08
[2020-02-28 03:15] LABS: Absolute Lymphocytes (CBC) 3.1 K/uL (0.7-4.9); Basophils % 0.7 % (0-1.3); Hematocrit 43.7 % (36.0-45.0); Lymphocytes % 42.4 % (15.3-44.8); MPV 11.1 fL (7.6-11.3); RBC Red Blood Cell Count 4.76 M/uL (3.86-4.86)
[2020-02-28] MEDS ORDERED: ASPIRIN 81 MG CHEWABLE TABLET ONE (04:07)
[2020-02-28 04:08] LABS: Albumin 3.9 g/dL (3.4-5.0); Bilirubin Direct 0.1 mg/dL (0-0.2); Bilirubin Total 0.5 mg/dL (0.2-1.0); Protein, Total 7.8 g/dL (6.4-8.2); Troponin (Emerg Dept Use Only) 0.36 ng/mL (0.0-0.045)
[2020-02-28 04:12] LABS: Magnesium 2.3 mg/dL (1.8-2.4); Potassium 3.8 mmol/L (3.5-5.1)
--- NOTE | 2020-02-28 04:15 | ER ---
Nurse's Notes [facility] – [place], [place] Name: Dimple Cisneros Age: 65 yrs Sex: Female : 1955 Arrival Date: 02/28/2020 Time: 02:04 Bed 5 Private MD: Diagnosis: Transient Ischemic Attack Presentation: 02/27 02:05 Chief complaint: Patient states: Generalized weakness to legs since yesterday morning lp1 at 1000; States intermittent leg weakness; tonight she was attempting to put out her cigarette and "I could not make my arm do what I wanted it to"; patient able to stand and transfer to bed, states legs feeling weak. Coronavirus screen: Client denies travel out of the [place] in the last 14 days. At this time, the client does not indicate any symptoms associated with coronavirus-19. Ebola Screen: No symptoms or risks identified at this time. Risk Assessment: Do you want to hurt yourself or someone else? Patient reports no desire to harm self or others. Onset of symptoms was February 27, 2020 at 22:00. 02:05 Method Of Arrival: EMS: [facility] lp1 02:05 Acuity: GERBER 3 lp1 02:08 Care prior to arrival: Glucose check: 167. lp1 02:10 Initial Sepsis Screen: Does the patient meet any 2 criteria? No. Patient's initial rr5 sepsis screen is negative. Does the patient have a suspected source of infection? No. Patient's initial sepsis screen is negative. Historical: - Allergies: 02:07 Augmentin; lp1 02:07 Lortab; lp1 - Home Meds: 02:50 alprazolam 1 mg Oral tab 1 tab BID for Anxiety [Active]; aspirin 81 mg Oral chew 1 tab rr5 once daily [Active]; digoxin 125 mcg Oral tab 1 tab once daily [Active]; folic acid 400 mcg Oral tab 1 tab once daily [Active]; Glipizide Oral [Active]; glyburide 5 mg Oral tab 1 tab 2 times per day [Active]; hydrochlorothiazide 25 mg Oral tab 1 tab once daily [Active]; metoprolol tartrate 25 mg Oral tab 1 tab 2 times per day for Hypertension [Active]; [place]-3 Fish Oil Oral daily [Active]; Probiotic Oral daily [Active]; Vitamin D Oral 5000 unit daily [Active]; - PMHx: 02:07 Atrial Fib; Diabetes - NIDDM; Hypertension; melanoma; lp1 - PSHx: 02:50 Hysterectomy; rr5 - Immunization history:: Adult Immunizations up to date. - Social history:: Smoking status: Patient reports the use of cigarette tobacco products. Screenin:07 Abuse screen: Denies threats or abuse. Denies injuries from another. Nutritional lp1 screening: No deficits noted. Tuberculosis screening: No symptoms or risk factors identified. Fall Risk Total Patrick Fall Scale indicates High Risk Score (45 or more points). Fall prevention measures have been instituted. Side Rails Up X 2 As available patient and family educated on Fall Prevention Program and Strategies. 02:25 VAN Screening: Arm Drift: Patient shows no arm weakness. Patient is VAN negative. rr5 02:47 Patient has been NPO before screening. The patient is alert, able to follow commands. rr5 The patient does not exhibit slurred or garbled speech The patient is not exhibiting difficulty speaking. The patient does not exhibit difficulty understanding words. The patient is able to swallow own secretions with no drooling or need for suction. Patient tolerated one teaspoon of water. No drooling, immediate coughing, gurgling, or clearing of the throat was noted. The patient tolerated 90mL of water. No drooling, immediate coughing, gurgling, or clearing of the throat was noted. The patient passed the bedside swallow screening. Oral medications may be given as ordered. Contact Physician for further diet orders. Assessment: 02:10 General: Appears in no apparent distress. comfortable, Behavior is calm, cooperative, rr5 appropriate for age. 02:10 Pain: Denies pain. Neuro: Level of Consciousness is awake, alert, obeys commands, rr5 Oriented to person, place, time, situation, Flap Maker are equal bilaterally Moves all extremities. Full function Gait is steady, Speech is normal, Facial symmetry appears normal, Reports weakness in general. Cardiovascular: Capillary refill < 3 seconds Patient's skin is warm and dry. Respiratory: Airway is patent Respiratory effort is even, unlabored, Respiratory pattern is regular, symmetrical. GI: No signs and/or symptoms were reported involving the gastrointestinal system. : No signs and/or symptoms were reported regarding the genitourinary system. EENT: No signs and/or symptoms were reported regarding the EENT system. Derm: Skin is intact, is healthy with good turgor, Skin temperature is warm. Musculoskeletal: Circulation, motion, and sensation intact. Capillary refill < 3 seconds. 03:10 Reassessment: Patient appears in no apparent distress at this time. Patient and/or vc family updated on plan of care and expected duration. Pain level reassessed. Patient is alert, oriented x 3, equal unlabored respirations, skin warm/dry/pink. Assumed care of patient from Karl Castaneda RN. 04:14 Reassessment: Patient appears in no apparent distress at this time. Patient and/or vc family updated on plan of care and expected duration. Pain level reassessed. Patient is alert, oriented x 3, equal unlabored respirations, skin warm/dry/pink. Admitting provider at bedside. 05:35 Reassessment: See [facility] for further charting. vc Vital Signs: 02:10 BP 176 / 67; Pulse 86; Resp 19; Temp 98; Pulse Ox 95% ; Weight 99.34 kg; Height 5 ft. 5 rr5 in. (165.10 cm); 02:45 BP 148 / 76; Pulse 84; Resp 17; Pulse Ox 99% ; rr5 02:10 Body Mass Index 36.44 (99.34 kg, 165.10 cm) rr5 Jenifer Coma Score: 02:05 Eye Response: spontaneous(4). Verbal Response: oriented(5). Motor Response: obeys rr5 commands(6). Total: 15. ED Course: 02:04 Patient arrived in ED. lp1 02:06 Triage completed. lp1 02:06 Arm band placed on. lp1 02:09 Phi Shirley MD is Attending Physician. 7 02:15 Patient has correct armband on for positive identification. Placed in gown. Bed in low rr5 position. Call light in reach. Side rails up X2. post exchange manager on. Pulse ox on. NIBP on. 02:24 Karl Castaneda RN is Primary Nurse. rr5 02:30 Urine collected: clean catch specimen, clear. rr5 02:46 Inserted saline lock: 20 gauge in right forearm, using aseptic technique. Blood rr5 collected. 02:46 EKG done, by ED staff, reviewed by Phi Shirley MD. rr5 02:59 XRAY Chest (1 view) In Process Unspecified. EDMS 03:27 CT Head Brain wo Cont In Process Unspecified. EDMS 04:09 Primary Nurse role handed off by Karl Castaneda, ADI vc 04:09 Farnaz Costa, ADI is Primary Nurse. vc 04:13 Aayush Rivera MD is Hospitalizing Provider. [facility] 05:34 No provider procedures requiring assistance completed. Patient admitted, IV remains in vc place. Administered Medications: 04:01 Drug: Aspirin Chewable Tablet 324 mg Route: PO; vc 06:34 Follow up: Response: No adverse reaction vc Outcome: 04:15 Decision to Hospitalize by Provider. 7 05:34 Admitted to ER Hold. Please see [facility] for further documentation. 05:34 Condition: stable 05:34 Instructed on the need for admit. 10:01 Patient left the ED. Signatures: Dispatcher [employer] EDKS Juanita Paige RN RN Liliana Kramer RN RN lp1 Karl Castaneda, ADI RN rr5 Farnaz Costa RN RN Phi Shirley MD MD 7
--- NOTE | 2020-02-28 04:15 | EDPHYS ---
Physician Documentation [facility] Name: Dimple Cisneros Age: 65 yrs Sex: Female : 1955 Arrival Date: 02/28/2020 Time: 02:04 Bed 5 Private MD: ED Physician Phi Shirley HPI: 02/27 02:56 This 65 yrs old Female presents to ER via EMS with complaints of General mh7 Weakness. 02:56 The patient's problem is reported as weakness, in the right lower extremity, in the mh7 left lower extremity. Onset: The symptoms/episode began/occurred yesterday. Duration: The episodes are intermittent. Context: the episode(s) was witnessed, by no one, symptoms became apparent on February 27, 2020, at 10:00. occurred at home, occurred while the patient was lying down, Possible contributing factors include:. The symptoms are alleviated by nothing. The symptoms are aggravated by nothing. Associated signs and symptoms: Pertinent positives: numbness, Pertinent negatives: abdominal pain, agitation, blurred vision, chest pain, combativeness, confusion, diaphoresis, diarrhea, dizziness, headache, lightheadedness, nausea, palpitations, seizure, shortness of breath. Severity of symptoms: At their worst the symptoms were moderate yesterday, in the emergency department the symptoms have improved moderately. Historical: - Allergies: 02:07 Augmentin; lp1 02:07 Lortab; lp1 - Home Meds: 02:50 alprazolam 1 mg Oral tab 1 tab BID for Anxiety [Active]; aspirin 81 mg Oral chew 1 tab rr5 once daily [Active]; digoxin 125 mcg Oral tab 1 tab once daily [Active]; folic acid 400 mcg Oral tab 1 tab once daily [Active]; Glipizide Oral [Active]; glyburide 5 mg Oral tab 1 tab 2 times per day [Active]; hydrochlorothiazide 25 mg Oral tab 1 tab once daily [Active]; metoprolol tartrate 25 mg Oral tab 1 tab 2 times per day for Hypertension [Active]; [place]-3 Fish Oil Oral daily [Active]; Probiotic Oral daily [Active]; Vitamin D Oral 5000 unit daily [Active]; - PMHx: 02:07 Atrial Fib; Diabetes - NIDDM; Hypertension; melanoma; lp1 - PSHx: 02:50 Hysterectomy; rr5 - Immunization history:: Adult Immunizations up to date. - Social history:: Smoking status: Patient reports the use of cigarette tobacco products. ROS: 02:56 Constitutional: Negative for fever, chills, and weight loss, Eyes: Negative for injury, mh7 pain, redness, and discharge, ENT: Negative for injury, pain, and discharge, Neck: Negative for injury, pain, and swelling, Cardiovascular: Negative for chest pain, palpitations, and edema, Respiratory: Negative for shortness of breath, cough, wheezing, and pleuritic chest pain, Abdomen/GI: Negative for abdominal pain, nausea, vomiting, diarrhea, and constipation, Back: Negative for injury and pain, : Negative for injury, bleeding, discharge, and swelling, Skin: Negative for injury, rash, and discoloration, Psych: Negative for depression, anxiety, suicide ideation, homicidal ideation, and hallucinations, Allergy/Immunology: Negative for hives, rash, and allergies, Endocrine: Negative for neck swelling, polydipsia, polyuria, polyphagia, and marked weight changes, Hematologic/Lymphatic: Negative for swollen nodes, abnormal bleeding, and unusual bruising. Exam: 02:56 Constitutional: This is a well developed, well nourished patient who is awake, alert, mh7 and in no acute distress. Head/Face: Normocephalic, atraumatic. Eyes: Pupils equal round and reactive to light, extra-ocular motions intact. Lids and lashes normal. Conjunctiva and sclera are non-icteric and not injected. Cornea within normal limits. Periorbital areas with no swelling, redness, or edema. ENT: Nares patent. No nasal discharge, no septal abnormalities noted. Tympanic membranes are normal and external auditory canals are clear. Oropharynx with no redness, swelling, or masses, exudates, or evidence of obstruction, uvula midline. Mucous membranes moist. Neck: Trachea midline, no thyromegaly or masses palpated, and no cervical lymphadenopathy. Supple, full range of motion without nuchal rigidity, or vertebral point tenderness. No Meningismus. Chest/axilla: Normal chest wall appearance and motion. Nontender with no deformity. No lesions are appreciated. Cardiovascular: Regular rate and rhythm with a normal S1 and S2. No gallops, murmurs, or rubs. Normal PMI, no JVD. No pulse deficits. Respiratory: Lungs have equal breath sounds bilaterally, clear to auscultation and percussion. No rales, rhonchi or wheezes noted. No increased work of breathing, no retractions or nasal flaring. Abdomen/GI: Soft, non-tender, with normal bowel sounds. No distension or tympany. No guarding or rebound. No evidence of tenderness throughout. Back: No spinal tenderness. No costovertebral tenderness. Full range of motion. Skin: Warm, dry with normal turgor. Normal color with no rashes, no lesions, and no evidence of cellulitis. MS/ Extremity: Pulses equal, no cyanosis. Neurovascular intact. Full, normal range of motion. Neuro: Awake and alert, GCS 15, oriented to person, place, time, and situation. Cranial nerves II-XII grossly intact. Motor strength 5/5 in all extremities. Sensory grossly intact. Cerebellar exam normal. Normal gait. Psych: Awake, alert, with orientation to person, place and time. Behavior, mood, and affect are within normal limits. 06:51 Radiologist reports: No acute findings health system Vital Signs: 02:10 BP 176 / 67; Pulse 86; Resp 19; Temp 98; Pulse Ox 95% ; Weight 99.34 kg; Height 5 ft. 5 rr5 in. (165.10 cm); 02:45 BP 148 / 76; Pulse 84; Resp 17; Pulse Ox 99% ; rr5 02:10 Body Mass Index 36.44 (99.34 kg, 165.10 cm) rr5 [place] Coma Score: 02:05 Eye Response: spontaneous(4). Verbal Response: oriented(5). Motor Response: obeys rr5 commands(6). Total: 15. MDM: 02:32 Patient medically screened. health system 04:12 Differential diagnosis: CVA, TIA, metabolic disorder. Data reviewed: vital signs, health system nurses notes, lab test result(s), CBC, electrolytes, urinalysis, EKG, radiologic studies, CT scan, plain films. Data interpreted: Pulse oximetry: on room air is 99 %. Interpretation: normal. Counseling: I had a detailed discussion with the patient and/or guardian regarding: the historical points, exam findings, and any diagnostic results supporting the discharge/admit diagnosis, the presence of at least one elevated blood pressure reading (>120/80) during this emergency department visit, lab results, radiology results, the need for further work-up and treatment in the hospital. Response to treatment: the patient's symptoms have markedly improved after treatment. 02/27 02:28 Order name: Basic Metabolic Panel rust 02/27 02:28 Order name: CBC with Diff; Complete Time: 03:48 rust 02/27 02:28 Order name: LFT's rust 02/27 02:28 Order name: Magnesium rust 02/27 02:28 Order name: NT PRO-BNP rust 02/27 02:28 Order name: PT-INR; Complete Time: 03:48 rust 02/27 02:28 Order name: Troponin (emerg Dept Use Only) rust 02/27 02:28 Order name: XRAY Chest (1 view) rust 02/27 02:33 Order name: CT Head Brain wo Cont health system 02/27 02:52 Order name: Glucose, Ancillary Testing; Complete Time: 03:48 EDLA 02/27 07:01 Order name: Troponin I [facility] 02/27 07:01 Order name: T4 Free [facility] 02/27 07:01 Order name: Thyroid Stimulating Hormone [facility] 02/27 07:58 Order name: Glucose, Ancillary Testing [facility] 02/27 02:28 Order name: EKG; Complete Time: 02:29 rust 02/27 02:28 Order name: Cardiac monitoring; Complete Time: 02:45 rust 02/27 02:28 Order name: EKG - Nurse/Tech; Complete Time: 02:45 rust 02/27 02:28 Order name: IV Saline Lock; Complete Time: 02:45 rust 02/27 02:28 Order name: Labs collected and sent; Complete Time: 02:45 rust 02/27 02:28 Order name: O2 Per Protocol; Complete Time: 02:45 rust 02/27 02:28 Order name: O2 Sat Monitoring; Complete Time: 02:45 rust 02/27 02:29 Order name: Urine Dipstick-Ancillary (obtain specimen); Complete Time: 02:29 rust 02/27 09:03 Order name: US EDLA Administered Medications: 04:01 Drug: Aspirin Chewable Tablet 324 mg Route: PO; vc 06:34 Follow up: Response: No adverse reaction vc Disposition: 06:51 Co-signature as Attending Physician, Phi Shirley MD. 7 Disposition: 02/28/20 04:15 Hospitalization ordered by Aayush Rivera for Observation. Preliminary diagnosis is Transient Ischemic Attack. - Bed requested for Telemetry/MedSurg (observation). - Status is Observation. ss - Condition is Stable. - Problem is new. - Symptoms have improved. Signatures: Dispatcher [employer] EDMS Juanita Paige, RN RN ss Liliana Kramer, RN RN lp1 Ramiro Dean, PLANOGRAMMER-C PLANOGRAMMER-Cla1 Aminata Zhang, RN RN tl1 Ana Dejesus Raymond, RN RN rr5 Farnaz Costa, RN RN Phi Shirley MD MD 7 Corrections: (The following items were deleted from the chart) 04:39 04:15 Hospitalization Ordered by Aayush Rivera MD for Observation. Preliminary tl1 diagnosis is Transient Ischemic Attack. Bed requested for Telemetry/MedSurg (observation). Status is Observation. Condition is Stable. Problem is new. Symptoms have improved. 7 08:24 04:39 02/28/2020 04:15 Hospitalization Ordered by Aayush Rivera MD for Observation. eb Preliminary diagnosis is Transient Ischemic Attack. Bed requested for [facility] ER HOLD. Status is Observation. Condition is Stable. Problem is new. Symptoms have improved. tl1 10:01 08:24 02/28/2020 04:15 Hospitalization Ordered by Aayush Rivera MD for Observation. ss Preliminary diagnosis is Transient Ischemic Attack. Bed requested for Telemetry/MedSurg (observation). Status is Observation. Condition is Stable. Problem is new. Symptoms have improved. eb
--- NOTE | 2020-02-28 04:43 | P.HP ---
Certification for Inpatient Patient admitted to: Observation With expected LOS: <2 Midnights Patient will require the following post-hospital care: None Practitioner: I am a practitioner with admitting privileges, knowledge of patient current condition, hospital course, and medical plan of care. Services: Services provided to patient in accordance with Admission requirements found in Title 42 Section 412.3 of the Code of Federal Regulations <Ramiro Dean - Last Filed: 02/28/20 04:37> Patient History Date of Service: 02/28/20 Primary Care Provider: Johnny Reason for admission: TIA History of Present Illness: 65-year-old female with medical history of diabetes, atrial fibrillation, hypertension presents emergency department after experiencing neurological symptoms that started at 10:00 a.m. on 02/27/2020. Patient reports that she is having difficulty moving her arms and feeling weakness in her right arm and right leg. Patient reports that this lasted a short period time but she still feels that her lower extremities are weak. Patient was evaluated in the emergency department with a CT scan without contrast of the brain that was normal. Patient also had additional blood work that revealed an elevated troponin and BNP level. Patient does have history of atrial fibrillation, only taking aspirin at this time. ED provider wishes to admit patient for further evaluation and management. When I saw the patient in the emergency department she was awake, alert, oriented x4. Patient with some very mild right arm drift on exam. Patient also possibly has some mild left-sided facial droop. Unable to discern if this is normal for her or not. Patient be admitted for further evaluation and management with consults for cardiology and neurology in place. - Past Medical/Surgical History Diabetic: Yes -: Diabetes mellitus, diet controlled -: Lymphoma -: Metastatic melanoma -: Atrial fibrillation -: Depression -: Hyperlipidemia -: Tobacco abuse -: Mastoid Ear Surgery 1973 -: Hysterectomy 1978 -: Lymph node resection left arm -: Melanoma removal left arm -: tooth pick removal on left foot Psychosocial/ Personal History: The patient is . She has 6 children. - Family History Mother -: Heart disease, Hypertension Brother -: Heart disease, Cancer - Social History Alcohol use: No CD- Drugs: No Caffeine use: No Place of Residence: Home <Ramiro Dean - Last Filed: 02/28/20 04:37> Date of Service: 02/28/20 <Douglas Rivera - Last Filed: 02/28/20 14:38> Allergies acetaminophen [From Lortab] Allergy (Verified 07/29/18 02:37) Hives/Rash hydrocodone [From Lortab] Allergy (Verified 07/29/18 02:37) Hives/Rash amoxicillin [From Augmentin] Adverse Reaction (Verified 07/29/18 02:37) Hives/Rash clavulanic acid [From Augmentin] Adverse Reaction (Verified 07/29/18 02:37) Hives/Rash Home Medications: ALPRAZolam [Xanax*] 1 mg PO BID PRN 07/24/15 Digoxin [Digitek] 125 mcg PO BID 07/24/15 Folic Acid/Vit B Complex and C [Balanced B-Complex Caplet] 500 mcg PO BEDTIME 07/24/15 Cholecalciferol (Vitamin D3) [Vitamin D 5,000 IU Cap*] 1 cap PO DAILY 07/29/18 glipiZIDE [Glipizide] 10 mg PO BID 02/28/20 Review of Systems 10-point ROS is otherwise unremarkable General: Weakness Neurological: Weakness, As per HPI <Ramiro Dean - Last Filed: 02/28/20 04:37> Physical Examination - Physical Exam General: Alert, In no apparent distress, Oriented x3 HEENT: Atraumatic, Normocephalic, PERRLA, Mucous membr. moist/pink Neck: Supple Respiratory: Clear to auscultation bilaterally, Normal air movement Cardiovascular: Normal pulses, Irregular heart rate/rhythm (Atrial fibrillation, rate controlled) Capillary refill: <2 Seconds Gastrointestinal: Normal bowel sounds, Soft and benign Musculoskeletal: No contractures, No erythema, No tenderness Integumentary: No tenderness/swelling, No erythema, No warmth Neurological: Normal speech, Normal strength at 5/5 x4 extr, Normal tone, Sensation intact, Normal affect, Other (Very mild right arm drift, possible mild left-sided facial droop) - Studies Laboratory Data (last 24 hrs) 02/28/20 02:45: PT 12.7 H, INR 1.08 02/28/20 02:45: WBC 7.3, Hgb 15.4 H, Hct 43.7, Plt Count 184 02/28/20 02:45: Sodium 140, Potassium 3.8, BUN 10, Creatinine 0.87, Glucose 183 H, Magnesium 2.3, Total Bilirubin 0.5, AST 19, ALT 25, Alkaline Phosphatase 68 <Ramiro Dean - Last Filed: 02/28/20 04:37> - Studies Laboratory Data (last 24 hrs) 02/28/20 02:45: PT 12.7 H, INR 1.08 02/28/20 02:45: WBC 7.3, Hgb 15.4 H, Hct 43.7, Plt Count 184 02/28/20 02:45: Sodium 140, Potassium 3.8, BUN 10, Creatinine 0.87, Glucose 183 H, Magnesium 2.3, Total Bilirubin 0.5, AST 19, ALT 25, Alkaline Phosphatase 68 <Douglas Rivera - Last Filed: 02/28/20 14:38> Assessment and Plan - Plan Assessment Weakness of right arm and leg possible TIA/CVA Elevated troponin and BNP level Chronic atrial fibrillation not on chronic anticoagulation therapy Diabetes mellitus type 2 Hypertension Hyperlipidemia Plan Weakness of right arm and leg possible TIA/CVA: Neurology has been consulted, have ordered MRI, carotid Dopplers, echocardiogram, physical therapy, speech therapy, folic acid, aspirin. Appreciate further input from neurology. Elevated troponin and BNP level: Have ordered echocardiogram and will trend troponin levels. Patient does not report chest pain at this time. Patient does not appear to be volume overloaded either. Cardiology has been consulted on this case. Appreciate further input from cardiology. Chronic atrial fibrillation not on chronic anticoagulation therapy: Patient currently taking metoprolol, digoxin, aspirin. Will discuss with Cardiology and Neurology to determine if patient should be placed on anti coagulation at this time. Diabetes mellitus type 2: A.c. HS Accu-Cheks sliding scale insulin therapy. Hypertension: Obtain and continue patient's home medications. Hyperlipidemia: Obtain and continue patient's home medications. Discharge Plan: Home Plan to discharge in: 24 Hours - Advance Directives Does patient have a Living Will: No Does patient have a Durable POA for Healthcare: No - Code Status/Comfort Care Code Status Assessed: Yes (Patient is full code) Critical Care: No Time Spent Managing Pts Care (In Minutes): 55 <Ramiro Dean - Last Filed: 02/28/20 04:37> Physician Review Additional Text: The patient was seen and examined and findings were discussed Agree with assessment and plan as documented by the SANTA On examination patient is alert oriented Normocephalic atraumatic Afib , Ratee controlled CTA bilateral NS : Alert nonfocal No pedal edema Plan Discusses cardiology Patient had a CT of the head which was negative for any acute CVA will get an MRI of the brain Patient still has AFib Discussed about possible anticoagulation treatment Will start on Eliquis For possible Dc if MRI is normal Monitor under telemetry <Douglas Rivera - Last Filed: 02/28/20 14:38>
[2020-02-28] MEDS ORDERED: ONDANSETRON 4 MG/2 ML VIAL IV PRN (05:23)
[2020-02-28] MEDS ORDERED: ACETAMINOPHEN 500 MG TAB PO PRN (05:23)
[2020-02-28] MEDS: NA CHLORIDE 0.9% 1,000 ML IV SCH ×3 (05:23→18:43)
[2020-02-28] MEDS ORDERED: NA CHLORIDE 0.9% 1,000 ML ONE (06:01)
[2020-02-28 06:03] VITALS: BMI 36.4
[2020-02-28] MEDS ORDERED: POTASSIUM 25 MEQ EFFERV TAB PO ONE (06:39)
[2020-02-28] MEDS ORDERED: POTASSIUM 25 MEQ EFFERV TAB ONE (06:57)
[2020-02-28 06:59] LABS: Troponin I 0.39 ng/mL (0.0-0.045)
[2020-02-28 07:01] LABS: Thyroid Stimulating Hormone 4.83 uIU/mL (0.360-3.740)
[2020-02-28] MEDS: INSULIN -REGULAR HUMAN 50 UNIT/0.5 ML ML SQ SCH ×4 (07:30→20:37)
--- NOTE | 2020-02-28 08:38 | EKG ---
Test Date: 2020-02-28 Test Time: 02:36:20 Warehouse Material Handler: RR MEASUREMENT RESULTS: Intervals: Rate: 84 [place]: QRSD: 80 QT: 368 QTc: 434 [place]: P: [place]: QRS: 70 T: 179 INTERPRETIVE STATEMENTS: Atrial fibrillation Minimal voltage criteria for LVH, may be normal variant Septal infarct, age undetermined Abnormal ECG Compared to ECG 07/29/2018 00:49:37 Myocardial infarct finding now present ST (T wave) deviation no longer present Possible ischemia no longer present Prolonged QT interval no longer present Electronically Signed On 02-28-20 08:38:07 CDT by Anthony Jean
--- NOTE | 2020-02-28 08:59 | RAD REPORT ---
EXAM DESCRIPTION: RAD - Chest Single View - 02/28/2020 2:59 am CLINICAL HISTORY: MALAISE Chest pain. COMPARISON: Chest Single View dated 07/28/2018; Chest Single View dated 09/23/2017; Chest Single View dated 08/31/2016 FINDINGS: Portable technique limits examination quality. The lungs are grossly clear. The heart is mildly enlarged in size. No displaced fractures.Aortic athe rosclerosis. IMPRESSION: No acute intrathoracic process suspected.
[2020-02-28] MEDS: ASPIRIN EC 81 MG TAB PO SCH (09:00)
[2020-02-28] MEDS ORDERED: ENOXAPARIN 40 MG/0.4 ML SQ SCH (09:00)
[2020-02-28] MEDS: FOLIC ACID 1 MG TABLET PO SCH (09:00)
--- NOTE | 2020-02-28 09:03 | RAD REPORT ---
EXAM DESCRIPTION: US - CP - 02/28/2020 7:27 am CLINICAL HISTORY: TIA/CVA Headache, drowsiness COMPARISON: Carotid Artery Bilateral dated 09/23/2017 TECHNIQUE: Real-time sonographic evaluation of both carotid systems was performed. Doppler interroga tion was performed with waveform tracing bilaterally. FINDINGS: Normal high resistance waveforms are noted in both external carotid arteries. The common c arotid arteries and internal carotid arteries show normal low resistance waveforms. Mild to moderate hard plaquing is seen in both carotid bulbs, greater on the right. Peak systolic and end diastolic velocity values and the ICA/CCA ratios are in the non-hemodynamically significant rang e. Antegrade flow seen in both vertebral arteries. IMPRESSION: Mild to moderate hard plaquing is seen in both carotid bulbs, greater on the right. No evidence of a hemodynamically significant stenosis.
[2020-02-28] MEDS ORDERED: INSULIN -REGULAR HUMAN 50 UNIT/0.5 ML ML ONE (09:08)
[2020-02-28] MEDS ORDERED: ASPIRIN EC 81 MG TAB PO ONE (09:09)
[2020-02-28] MEDS ORDERED: FOLIC ACID 1 MG TABLET ONE (09:09)
[2020-02-28] MEDS ORDERED: ENOXAPARIN 40 MG/0.4 ML SQ ONE (09:09)
--- NOTE | 2020-02-28 15:02 | RAD REPORT ---
EXAM DESCRIPTION: Head Brain Wo Cont CLINICAL HISTORY: WEAKNESS COMPARISON: None. TECHNIQUE: CT HEAD WITHOUT IV CONTRAST on 02/28/2020 2:33 AM CDT This exam was performed according to our departmental dose-optimization program, which includes autom ated exposure control, adjustment of the mA and/or kV according to patient size and/or use of iterati ve reconstruction technique. FINDINGS: There is no acute hemorrhage, mass effect or midline shift. Cisneros-white differentiation is preserved. There is no hydrocephalus. There is no significant volume loss for age. The calvarium is intact. Orbits and globes are unremarkable. The paranasal sinuses are clear. There a re postoperative changes of the left mastoid air cells. IMPRESSION: No acute intracranial findings. Electronically signed by: Hieu Brown MD 02/28/2020 3:36 AM CDT Due to temporary technical issues with the PACS/Fluency reporting system, reports are being signed by the in house radiologist without review as a courtesy to ensure prompt reporting. The interpreting r adiologist is fully responsible for the content of the report.
--- NOTE | 2020-02-28 16:43 | RAD REPORT ---
EXAM DESCRIPTION: MRI - Brain Wo Cont - 02/28/2020 3:24 pm CLINICAL HISTORY: TIA/CVA, bilateral leg weakness, right arm weakness COMPARISON: Head Brain Wo Cont dated 02/28/2020 TECHNIQUE: Sagittal T1-weighted images were obtained along with axial PD, heavily T2-weighted and T2 -FLAIR images. Axial DWI and ADC mapping sequences were also obtained along with coronal heavily T2-w eighted images. FINDINGS: Diffusion-weighted imaging shows clustered hyperintense foci in the left parietal white ma tter extending from periventricular 2 subcortical in location. There is corresponding hypointense sig nal on ADC mapping. Patient has scattered cerebral white matter T2 hyperintensities typical for mild to moderate severity chronic ischemic change. Atrophy is mild. Ventricles are in proportion to the vo lume loss. No cortical edema or sulcal effacement. No extra-axial fluid collections. Cisneros-matter/whit e matter junction is preserved. Signal voids are seen as a normal finding in the major intracranial v essels. No globe or orbital content acute finding. Mastoid air cells and paranasal sinuses are clear. IMPRESSION: Multiple clustered small foci of nonhemorrhagic acute to subacute infarction in the left parietal white matter near the central sulcus. The infarction pattern would explain the right upper and lower extremity symptoms. This finding would not explain any acute left leg symptoms. Patient has mild atrophy and mild to moderate chronic ischemic change as a baseline.
[2020-02-28] MEDS: APIXABAN 5 MG TABLET PO SCH (20:37)
[2020-02-29] MEDS: NA CHLORIDE 0.9% 1,000 ML IV SCH ×2 (02:27→08:03)
[2020-02-29 06:20] LABS: Absolute Lymphocytes (CBC) 2.4 K/uL (0.7-4.9); Basophils % 0.8 % (0-1.3); Hematocrit 40.4 % (36.0-45.0); Lymphocytes % 43.7 % (15.3-44.8); MPV 10.7 fL (7.6-11.3); RBC Red Blood Cell Count 4.38 M/uL (3.86-4.86)
[2020-02-29 06:33] LABS: Potassium 3.8 mmol/L (3.5-5.1)
[2020-02-29] MEDS: INSULIN -REGULAR HUMAN 50 UNIT/0.5 ML ML SQ SCH ×2 (07:30→12:00)
--- NOTE | 2020-02-29 08:54 | ECHO ---
HEIGHT: 5 ft 5 in WEIGHT: 219 lb 0.115 oz DATE OF STUDY: 02/28/[address]: Ramiro Dean NP 2-DIMENSIONAL: YES M.MODE: YES DOPPLER: YES COLOR FLOW: YES TDS: YES PORTABLE: NO DEFINITY: NO BUBBLE STUDY: NO DIAGNOSIS: ELEVATED TROPONIN, TRANSIENT ISCHEMIC ATTACK CARDIAC HISTORY: CATHERIZATION: NO SURGERY: NO PROSTHETIC VALVE: NO PACEMAKER: NO MEASUREMENTS (cm) DIASTOLIC (NORMALS) SYSTOLIC (NORMALS) IVSd 1.2 (0.6-1.2) LA Diam 3.5 (1.9-4.0) LVEF 56% LVIDd 4.3 (3.5-5.7) LVIDs 3.1 (2.0-3.5) %FS 29% LVPWd 1.3 (0.6-1.2) Ao Diam 3.2 (2.0-3.7) 2 DIMENSIONAL ASSESSMENT: RIGHT ATRIUM: NORMAL LEFT ATRIUM: ENLARGED RIGHT VENTRICLE: NORMAL LEFT VENTRICLE: MILD LEFT VENTRICULAR HYPERTROPHY TRICUSPID VALVE: MITRAL VALVE: PULMONIC VALVE: NORMAL AORTIC VALVE: NORMAL PERICARDIAL EFFUSION: NONE AORTIC ROOT: NORMAL LEFT VENTRICULAR WALL MOTION: DOPPLER/COLOR FLOW: ELEVATED FILLING PRESSURE WITH DIASTOLIC DYSFUNCTION. COMMENTS: NORMAL LEFT VENTRICULAR EJECTION FRACTION 55-60% WITH NORMAL WALL MOTION. DIASTOLIC DYSFUNCTION WITH ELEVATED FILLING PRESSURE. MILD PULMONARY HYPERTENSION WITH RIGHT VENTRICULAR SYSTOLIC PRESSURE OF 40-45 mmHg. MILD MITRAL AND TRICUSPID REGURGITATION. ENLARGED LEFT ATRIUM. TECHNOLOGIST: Brianda SOUSA
[2020-02-29] MEDS ORDERED: POTASSIUM CL SA 10 MEQ TAB PO ONE (09:00)
[2020-02-29] MEDS: APIXABAN 5 MG TABLET PO SCH (09:10)
[2020-02-29] MEDS: FOLIC ACID 1 MG TABLET PO SCH (09:10)
[2020-02-29] MEDS: ASPIRIN EC 81 MG TAB PO SCH (09:10)
[2020-02-29 11:55] VITALS: O2SAT 96
--- NOTE | 2020-02-29 13:51 | P.PN ---
Subjective Date of Service: 02/29/20 Primary Care Provider: Johnny Chief Complaint: TIA Review of Systems 10-point ROS is otherwise unremarkable Physical Examination - Vital Signs Temperature: 96.3 F Blood Pressure: 144/70 Pulse: 79 Respirations: 18 Pulse Ox (%): 93 - Studies Laboratory Data (last 24 hrs) 02/29/20 05:40: Sodium 142, Potassium 3.8, BUN 9, Creatinine 0.84, Glucose 190 H, Triglycerides 283 H, Cholesterol 231 H, HDL Cholesterol 25 L, Cholesterol/HDL Ratio 9.24 02/29/20 05:40: WBC 5.6 D, Hgb 13.9, Hct 40.4, Plt Count 164 02/28/20 21:25: Troponin I 0.41 H 02/28/20 13:17: Troponin I 0.34 H Microbiology Data (last 24 hrs): 02/28/20 06:11 Nasopharnyx Coronavirus COVID-19 PCR - Final Assessment & Plan Physician Review Additional Text: The patient was seen and examined and findings were discussed Agree with assessment and plan as documented by the SANTA On examination patient is alert oriented Normocephalic atraumatic Afib , Ratee controlled CTA bilateral NS : Alert nonfocal No pedal edema Plan Discusses cardiology Patient had a CT of the head which was negative for any acute CVA will get an MRI of the brain Patient still has AFib Discussed about possible anticoagulation treatment Will start on Eliquis For possible Dc if MRI is normal Monitor under telemetry 02/29/2020 MRI findings noted Echo showed no vegetations or thrombus Continue anticoagulation PT OT evaluation appreciated Discharged home with outpatient follow with cardiology and neurology Time Spent Managing Pts Care (In Minutes): 43
--- NOTE | 2020-02-29 14:57 | P.DS ---
Admission Date: 02/28/20 Discharge Date: 02/29/20 Primary Care Provider: Johnny Discharge Condition: GOOD Reason for Admission: TIA Brief History of Present Illness: 65-year-old female with medical history of diabetes, atrial fibrillation, hypertension presents emergency department after experiencing neurological symptoms that started at 10:00 a.m. on 02/27/2020. Patient reports that she is having difficulty moving her arms and feeling weakness in her right arm and right leg. Patient reports that this lasted a short period time but she still feels that her lower extremities are weak. Patient was evaluated in the emergency department with a CT scan without contrast of the brain that was normal. Patient also had additional blood work that revealed an elevated troponin and BNP level. Patient does have history of atrial fibrillation, only taking aspirin at this time. ED provider wishes to admit patient for further evaluation and management. Hospital Course: Weakness of right arm and leg possible TIA/CVA: Elevated troponin and BNP level: Chronic atrial fibrillation not on chronic anticoagulation therapy: Diabetes mellitus type 2: Hypertension: Hyperlipidemia: The patient was admitted and was monitor closely under telemetry underwent a stroke workup. CT head was negative for an acute change Carotid Doppler findings noted MRI showed :Multiple clustered small foci of nonhemorrhagic acute to subacute infarction in the left parietal white matter near the central sulcus. The infarction pattern would explain the right upper and lower extremity symptoms. This finding would not explain any acute left leg symptoms. Patient has mild atrophy and mild to moderate chronic ischemic change as a baseline. Patient was in chronic AFib and cardiology was consulted. cardiology recommended starting on anticoagulation. Patient was started on Eliquis MRI findings noted Echo showed no vegetations or thrombus PT OT evaluation appreciated patient wanted go home and is being discharged home today in a stable condition Discharged home with outpatient follow up with cardiology and neurology Vital Signs/Physical Exam: Temp Pulse Resp BP Pulse Ox 96.3 F L 79 18 144/70 H 93 02/29/20 13:51 02/29/20 13:51 02/29/20 13:51 02/29/20 13:51 02/29/20 13:51 General: Alert, In no apparent distress HEENT: Atraumatic, Normocephalic Neck: Supple Respiratory: Clear to auscultation bilaterally Cardiovascular: Regular rate/rhythm, Normal S1 S2 Capillary refill: <2 Seconds Gastrointestinal: Soft and benign, W/out hepatosplenomegaly Musculoskeletal: No clubbing, No swelling Integumentary: No rashes Neurological: Normal speech, Other (Alert Awake ) Lymphatics: No axilla or inguinal lymphadenopathy Laboratory Data at Discharge: WBC 5.6 K/uL (4.3-10.9) D 02/29/20 05:40 Hgb 13.9 g/dL (12.0-15.0) 02/29/20 05:40 Hct 40.4 % (36.0-45.0) 02/29/20 05:40 Plt Count 164 K/uL (152-406) 02/29/20 05:40 PT 12.7 SECONDS (9.5-12.5) H 02/28/20 02:45 INR 1.08 02/28/20 02:45 Sodium 142 mmol/L (136-145) 02/29/20 05:40 Potassium 3.8 mmol/L (3.5-5.1) 02/29/20 05:40 BUN 9 mg/dL (7-18) 02/29/20 05:40 Creatinine 0.84 mg/dL (0.55-1.3) 02/29/20 05:40 Glucose 190 mg/dL (74-106) H 02/29/20 05:40 Magnesium 2.3 mg/dL (1.8-2.4) 02/28/20 02:45 Total Bilirubin 0.5 mg/dL (0.2-1.0) 02/28/20 02:45 AST 19 U/L (15-37) 02/28/20 02:45 ALT 25 U/L (12-78) 02/28/20 02:45 Alkaline Phosphatase 68 U/L (45-117) 02/28/20 02:45 Troponin I 0.41 ng/mL (0.0-0.045) H 02/28/20 21:25 Triglycerides 283 mg/dL (<150) H 02/29/20 05:40 Cholesterol 231 mg/dL (<200) H 02/29/20 05:40 HDL Cholesterol 25 mg/dL (40-60) L 02/29/20 05:40 Cholesterol/HDL Ratio 9.24 02/29/20 05:40 Home Medications: ALPRAZolam [Xanax*] 1 mg PO BID PRN 01/14/16 Digoxin [Digitek] 125 mcg PO BID 07/24/15 Folic Acid/Vit B Complex and C [Balanced B-Complex Caplet] 500 mcg PO BEDTIME 07/24/15 Cholecalciferol (Vitamin D3) [Vitamin D 5,000 IU Cap*] 1 cap PO DAILY 07/29/18 glipiZIDE [Glipizide] 10 mg PO BID 02/28/20 Apixaban [Eliquis] 5 mg PO BID #60 tablet 02/29/20 Aspirin [Aspirin EC 81 MG] 81 mg PO DAILY #30 tablet. 02/29/20 Atorvastatin Calcium [Lipitor] 80 mg PO BEDTIME #30 tab 02/29/20 New Medications: Aspirin [Aspirin EC 81 MG] 81 mg PO DAILY #30 tablet. Apixaban [Eliquis] 5 mg PO BID #60 tablet Atorvastatin Calcium [Lipitor] 80 mg PO BEDTIME #30 tab Followup: Anthony Jean MD [ACTIVE - CAN ADMIT] - (Call to make an appointment. ) Carlos Allen MD [ASSOCIATE-ACTIVE - CAN ADMIT] - (Call to make an appointment. ) Time spent managing pt's care (in minutes): 42
[2020-02-29 16:12] VITALS: BP 143/69; TEMP 97.8
[2020-02-29] MEDS ORDERED: ATORVASTATIN 80 MG TAB PO SCH (21:00)
--- NOTE | 2020-03-01 22:38 | CON ---
Date of Consultation: 02/28/2020 Reason For Consultation: TIA. History Of Present Illness: Ms. Cisneros is a 65-year-old woman who has had chronic atrial fibrillation. I have known her in my office for many years. She also has a history of diabetes and anxiety. She came in with what appeared to be TIA. She had symptoms of numbness and tingling in her right upper extremity and right lower extremity as well. This has resolved by now. The patient has been very un willing to get on anticoagulants over the years because of cost issues and has been taking aspirin as well as Xanax, digoxin, and glipizide. She is asymptomatic right now. Echocardiogram is pending. Her thyroid level is slightly abnormal. Her troponin is 0.36. BNP was 1541, most likely secondary t o the atrial fibrillation. Past Medical History: Otherwise negative. Allergies: INCLUDE PENICILLIN, AUGMENTIN, TYLENOL, AND CODEINE. Review of Systems: Negative. Social History: Negative. Family History: Negative. Physical Examination: General: She was in atrial fibrillation at a rate of 80. HEENT: Negative. Afebrile. Vital Signs: Stable. No acute distress Chest: Clear. Cardiac: Revealed atrial fibrillation. Abdomen: Benign. Extremities: Revealed no clubbing, cyanosis, or edema. Neurological: She is nonfocal. Diagnostic Data: As stated earlier. Impression And Plan: Transient ischemic attack in the setting of chronic atrial fibrillation. The p atient really needs to be on Eliquis 5 mg b.i.d. or Xarelto 20 daily. I will leave that up to Dr. Luis Antonio brizuela. Another echocardiogram is pending. Her thyroid needs to be adjusted. I will check in my offic e to see when her last stress test has been done because of elevated troponin. I asked her to do one in the near future, but as far as I am concerned, if her echocardiogram is normal, she can go home t levi on medications plus Eliquis and I will see her in the office in the next week or two. LUÍS/BREE Voice ID: [id number] Report ID: [id number]
== END 2020-02-29 16:40 | disposition home health service (06) ==
LOC: ER 01:58 → ERHOLD 04:51 → 2ND 09:37 → INTOOBSV 02-29 09:30 → OBSVTOIN 02-29 09:30
PROVIDERS: ADMIT Family Medicine; ATTEND Family Medicine
DX: G45.9 Transient cerebral ischemic attack, unspecified (principal); I27.20 Pulmonary hypertension, unspecified; I34.0 Nonrheumatic mitral (valve) insufficiency; I07.1 Rheumatic tricuspid insufficiency; I48.20 Chronic atrial fibrillation, unspecified; E11.9 Type 2 diabetes mellitus without complications; I10 Essential (primary) hypertension; E78.5 Hyperlipidemia, unspecified; R94.6 Abnormal results of thyroid function studies; Z20.828 Contact with and (suspected) exposure to other viral communicable diseases; Z79.84 Long term (current) use of oral hypoglycemic drugs; Z79.899 Other long term (current) drug therapy; Z79.82 Long term (current) use of aspirin
CPT/HCPCS: 93005; 93306; 85025 ×2; 80048 ×2; 36415 ×2; 83735; 85610; 80061; 82947 ×7; 80076; 84443; 84484 ×4; 84439; 83880; 70450; 71045; 93880; 70551; 92610; 97112; 97116; 97161; 99285; U0002; J1650; J7030 ×4; G0378 ×3

== ENCOUNTER 2020-03-01 10:31 | Observation (INO) | payer OTHER ==
[2020-03-01 11:37] LABS: Absolute Lymphocytes (CBC) 1.5 K/uL (0.7-4.9); Lymphocytes % 27.8 % (15.3-44.8); MPV 10.4 fL (7.6-11.3); RBC Red Blood Cell Count 4.78 M/uL (3.86-4.86)
--- NOTE | 2020-03-01 11:37 | RAD REPORT ---
EXAM DESCRIPTION: CT - Head Brain Wo Cont - 03/01/2020 11:14 am CLINICAL HISTORY: tia COMPARISON: February 28, 2020 TECHNIQUE: Computed axial tomography of the head was obtained. IV contrast was not requested. All CT scans are performed using dose optimization technique as appropriate and may include automated exposure control or mA/KV adjustment according to patient size. FINDINGS: An intracranial bleed is not seen . The ventricles are normal in caliber. No extra-axial fluid collection is noted. Small low-density area within the deep white matter of the left parietal lobe is unchanged. . Fluid within the sinuses/ mastoids is not seen. IMPRESSION: Small low-density area within the deep white matter of left parietal lobe is unchanged c ompatible with a subacute infarction.
[2020-03-01 11:43] LABS: Protime INR 1.16
[2020-03-01 11:57] LABS: Albumin 4.1 g/dL (3.4-5.0); Bilirubin Direct 0.2 mg/dL (0-0.2); Bilirubin Total 0.9 mg/dL (0.2-1.0); Magnesium 2.1 mg/dL (1.8-2.4); Potassium 3.8 mmol/L (3.5-5.1); Troponin (Emerg Dept Use Only) 0.39 ng/mL (0.0-0.045)
[2020-03-01] MEDS ORDERED: NA CHLORIDE 0.9% 1,000 ML ONE (12:14)
[2020-03-01] MEDS ORDERED: FOLIC ACID 5 MG/ML VIAL ONE (12:15)
--- NOTE | 2020-03-01 12:15 | RAD REPORT ---
EXAM DESCRIPTION: Tanya Single View03/01/2020 11:14 am CLINICAL HISTORY: Shortness of breath COMPARISON: none FINDINGS: The lungs appear clear of acute infiltrate. The heart is borderline enlarged IMPRESSION: No acute abnormalities displayed
--- NOTE | 2020-03-01 12:34 | EDPHYS ---
Physician Documentation [facility] Name: Dimple Cisneros Age: 65 yrs Sex: Female : 1955 Arrival Date: 03/01/2020 Time: 10:32 Bed 7 Private MD: ED Physician Mario Montes HPI: 03/01 10:55 This 65 yrs old Female presents to ER via EMS with complaints of Shortness Of antonio Breath. 10:55 The patient has shortness of breath at rest, with light activity. Onset: The antonio symptoms/episode began/occurred just prior to arrival. Duration: The symptoms are intermittent, with episodes lasting minutes at a time. The patient's shortness of breath has no apparent modifying factors. Associated signs and symptoms: The patient has no apparent associated signs or symptoms. Severity of symptoms: At their worst the symptoms were mild in the emergency department the symptoms are unchanged. The patient has not experienced similar symptoms in the past. Historical: - Allergies: 12:19 Lortab; bp 12:19 Augmentin; bp - Home Meds: 12:19 alprazolam 1 mg Oral tab 1 tab BID for Anxiety [Active]; aspirin 81 mg Oral chew 1 tab bp once daily [Active]; digoxin 125 mcg Oral tab 1 tab once daily [Active]; folic acid 400 mcg Oral tab 1 tab once daily [Active]; Glipizide Oral [Active]; glyburide 5 mg Oral tab 1 tab 2 times per day [Active]; hydrochlorothiazide 25 mg Oral tab 1 tab once daily [Active]; metoprolol tartrate 25 mg Oral tab 1 tab 2 times per day for Hypertension [Active]; [place]-3 Fish Oil Oral daily [Active]; Probiotic Oral daily [Active]; Vitamin D Oral 5000 unit daily [Active]; - PMHx: 12:19 Atrial Fib; Diabetes - NIDDM; Hypertension; melanoma; bp - Immunization history:: Adult Immunizations unknown. - Social history:: Smoking status: Patient reports the use of cigarette tobacco products, unknown amount. ROS: 10:57 Constitutional: Negative for fever, chills, and weight loss, Eyes: Negative for injury, antonio pain, redness, and discharge, ENT: Negative for injury, pain, and discharge, Neck: Negative for injury, pain, and swelling, Cardiovascular: Negative for chest pain, palpitations, and edema, Abdomen/GI: Negative for abdominal pain, nausea, vomiting, diarrhea, and constipation, Back: Negative for injury and pain, : Negative for injury, bleeding, discharge, and swelling, MS/Extremity: Negative for injury and deformity, Skin: Negative for injury, rash, and discoloration, Psych: Negative for depression, anxiety, suicide ideation, homicidal ideation, and hallucinations, Allergy/Immunology: Negative for hives, rash, and allergies, Endocrine: Negative for neck swelling, polydipsia, polyuria, polyphagia, and marked weight changes. 10:57 Respiratory: Positive for shortness of breath, at rest. got anxious about right posterior leg numbness. Exam: 10:57 Constitutional: This is a well developed, well nourished patient who is awake, alert, antonio and in no acute distress. Head/Face: Normocephalic, atraumatic. Eyes: Pupils equal round and reactive to light, extra-ocular motions intact. Lids and lashes normal. Conjunctiva and sclera are non-icteric and not injected. Cornea within normal limits. Periorbital areas with no swelling, redness, or edema. ENT: Nares patent. No nasal discharge, no septal abnormalities noted. Tympanic membranes are normal and external auditory canals are clear. Oropharynx with no redness, swelling, or masses, exudates, or evidence of obstruction, uvula midline. Mucous membranes moist. Neck: Trachea midline, no thyromegaly or masses palpated, and no cervical lymphadenopathy. Supple, full range of motion without nuchal rigidity, or vertebral point tenderness. No Meningismus. Chest/axilla: Normal chest wall appearance and motion. Nontender with no deformity. No lesions are appreciated. Cardiovascular: Regular rate and rhythm with a normal S1 and S2. No gallops, murmurs, or rubs. Normal PMI, no JVD. No pulse deficits. Respiratory: Lungs have equal breath sounds bilaterally, clear to auscultation and percussion. No rales, rhonchi or wheezes noted. No increased work of breathing, no retractions or nasal flaring. Abdomen/GI: Soft, non-tender, with normal bowel sounds. No distension or tympany. No guarding or rebound. No evidence of tenderness throughout. Back: No spinal tenderness. No costovertebral tenderness. Full range of motion. Female : Normal external genitalia. Skin: Warm, dry with normal turgor. Normal color with no rashes, no lesions, and no evidence of cellulitis. MS/ Extremity: Pulses equal, no cyanosis. Neurovascular intact. Full, normal range of motion. Neuro: Awake and alert, GCS 15, oriented to person, place, time, and situation. Cranial nerves II-XII grossly intact. Motor strength 5/5 in all extremities. Sensory grossly intact. Cerebellar exam normal. Normal gait. Psych: Awake, alert, with orientation to person, place and time. Behavior, mood, and affect are within normal limits. 11:12 ECG was reviewed by the Attending Physician. [facility] Vital Signs: 10:33 BP 160 / 88; Pulse 94; Resp 16; Temp 98; Pulse Ox 96% ; bp 12:13 BP 119 / 58; Pulse 61; Resp 17; Pulse Ox 98% ; bp 13:45 BP 171 / 93; Pulse 83; Resp 16; Pulse Ox 98% ; bp 16:00 BP 145 / 93; Pulse 70; Resp 16; Pulse Ox 100% ; bp NIH Stroke Scale Scores: 10:57 NIHSS Score: 0 antonio MDM: 10:36 Patient medically screened. [facility] 10:59 Data reviewed: vital signs, nurses notes, lab test result(s), EKG, radiologic studies, [facility] CT scan, plain films. 11:00 Differential diagnosis: Anxiety Reaction Bronchitis CHF exacerbation, Chronic antonio Obstructive Pulmonary Disease CVA, TIA, pneumonia, pulmonary edema, reactive airway disease. Antibiotic administration: Not indicated. The patient's Wells Deep Vein Thrombosis Score was calculated as follows: Total Score: 0-2 Pts- Low Risk. The patient's pulmonary embolism risk score was calculated as follows: Total Score: 0-2 points. This patient was found to be at low risk for a pulmonary embolism by using the Well's assessment criteria. Immunization status: Influenza vaccine: Data interpreted: desk monitor: rate is 98 beats/min, rhythm is regular, Pulse oximetry: on room air is 96 %. Test interpretation: by ED physician or midlevel provider: ECG, plain radiologic studies. 03/01 10:54 Order name: PT-INR; Complete Time: 12:26 [facility] 03/01 10:54 Order name: Basic Metabolic Panel; Complete Time: 12: [facility] 03/01 10:54 Order name: CBC with Diff; Complete Time: 12: [facility] 03/01 10:54 Order name: LFT's; Complete Time: 12:26 [facility] 03/01 10:54 Order name: Magnesium; Complete Time: 12: [facility] 03/01 10:54 Order name: NT PRO-BNP; Complete Time: 12: [facility] 03/01 10:54 Order name: Troponin (emerg Dept Use Only); Complete Time: 12: [facility] 03/01 10:57 Order name: Sed Rate; Complete Time: 12: [facility] 03/01 10:57 Order name: CRP; Complete Time: 12: [facility] 03/01 12:27 Order name: Add On-Lab [facility] 03/01 12:38 Order name: Digoxin Level EDMS 03/01 13:46 Order name: CBC with Automated Diff EDMS 03/01 13:46 Order name: CBC with Automated Diff EDMS 03/01 13:46 Order name: Comprehensive Metabolic Panel EDMS 03/01 10:54 Order name: XRAY Chest (1 view); Complete Time: 12: [facility] 03/01 10:54 Order name: EKG; Complete Time: 10:55 [facility] 03/01 10:54 Order name: Cardiac monitoring; Complete Time: 11:12 [facility] 03/01 10:54 Order name: EKG - Nurse/Tech; Complete Time: 11:12 [facility] 03/01 10:54 Order name: IV Saline Lock; Complete Time: 11:48 [facility] 03/01 10:54 Order name: Labs collected and sent; Complete Time: 11:48 [facility] 03/01 10:54 Order name: O2 Per Protocol; Complete Time: 11:12 [facility] 03/01 10:54 Order name: O2 Sat Monitoring; Complete Time: 11:12 [facility] 03/01 10:54 Order name: CT Head Brain wo Cont; Complete Time: 12:26 [facility] 03/01 13:46 Order name: CONS Physician Consult EDOR 03/01 13:46 Order name: Heart Healthy EDOR 03/01 13:46 Order name: Comprehensive Metabolic Panel EDMS EC:12 Rate is 96 beats/min. Rhythm is irregularly irregular. QRS [place] is Normal. CO interval antonio is normal. QRS interval is normal. QT interval is normal. No Q waves. T waves are Normal. No ST changes noted. Clinical impression: Atrial Fibrillation and No evidence of ischemia. Interpreted by me. Reviewed by me. Administered Medications: 11:15 Drug: NS 0.9% 1000 ml Route: IV; Rate: 1 bolus; Site: right antecubital; bp 16:26 Follow up: IV Status: Completed infusion; IV Intake: 1000ml bp 11:20 Drug: foLIC Acid 1 mg Route: IVPB; Site: right antecubital; bp 16:26 Follow up: IV Status: Completed infusion bp 13:00 Drug: Eliquis 5 mg Route: PO; bp 16:26 Follow up: Response: No adverse reaction bp 13:00 Drug: Aspirin 81 mg Route: PO; bp 16:25 Follow up: Response: No adverse reaction bp Disposition: 03/01/20 12:33 Hospitalization ordered by Aayush Rivera for Observation. Preliminary diagnosis are Cerebral infarction, Atrial fibrillation and flutter, Type 2 diabetes mellitus. - Bed requested for Telemetry/MedSurg (observation). - Status is Observation. bp - Condition is Fair. - Problem is new. - Symptoms have improved. NIH Stroke Scale - NIH Stroke Score Date: 03/01/2020 Time: 10:57 Total Score = 0 1a. Level of Consciousness (LOC) - 0(Alert) 1b. Level of Consciousness (LOC) (Year \T\ Age) - 0(Both) 1c. LOC Commands (Open \T\ Closes Eyes/Career And Transition Teacher) - 0(Both) 2. Best Gaze (Lateral Gaze Paresis) - 0(Normal) 3. Visual Field Loss - 0(No visual loss) 4. Facial Palsy - 0(Normal) 5a. Left Arm: Motor (10-second hold) - 0(No drift) 5b. Right Arm: Motor (10-second hold) - 0(No drift) 6a. Left Leg: Motor (5-second hold - always test supine) - 0(No drift) 6b. Right Leg: Motor (5-second hold - always test supine) - 0(No drift) 7. Limb Ataxia (finger/nose \T\ heel/ayala - test with eyes open) - 0(Absent) 8. Sensory Loss (pinprick arms/legs/face) - 0(Normal) 9. Best Language: Aphasia (description/naming/reading) - 0(No aphasia) 10. Dysarthria (speech clarity - read or repeat words) - 0(Normal) 11. Extinction and Inattention (visual/tactile/auditory/spatial/personal) - 0(No abnormality) Initials: antonio Signatures: Dispatcher [employer] EDMS Mario Montes MD MD cha Thompson, Moriah mt Peltier, Brian, RN RN bp Corrections: (The following items were deleted from the chart) 15:56 12:33 Hospitalization Ordered by Aayush Rivera MD for Observation. Preliminary mt diagnosis is Cerebral infarction; Atrial fibrillation and flutter; Type 2 diabetes mellitus. Bed requested for Telemetry/MedSurg (observation). Status is Observation. Condition is Fair. Problem is new. Symptoms have improved. antonio 16:38 15:56 03/01/2020 12:33 Hospitalization Ordered by Aayush Rivera MD for bp Observation. Preliminary diagnosis is Cerebral infarction; Atrial fibrillation and flutter; Type 2 diabetes mellitus. Bed requested for Telemetry/MedSurg (observation). Status is Observation. Condition is Fair. Problem is new. Symptoms have improved. ca
--- NOTE | 2020-03-01 12:34 | ER ---
Nurse's Notes [facility] Name: Dimple Cisneros Age: 65 yrs Sex: Female : 1955 Arrival Date: 03/01/2020 Time: 10:32 Bed 7 Private MD: Diagnosis: Cerebral infarction;Atrial fibrillation and flutter;Type 2 diabetes mellitus Presentation: 03/01 10:33 Chief complaint: EMS states: THINKS SHE'S HAVING A STROKE, D/C YESTERDAY WITH SOME KIND bp OF BLOOD CLOTS. Coronavirus screen: At this time, the client does not indicate any symptoms associated with coronavirus-19. Ebola Screen: No symptoms or risks identified at this time. Initial Sepsis Screen: Does the patient meet any 2 criteria? No. Patient's initial sepsis screen is negative. Does the patient have a suspected source of infection? No. Patient's initial sepsis screen is negative. Risk Assessment: Do you want to hurt yourself or someone else? Patient reports no desire to harm self or others. Onset of symptoms is unknown. 10:33 Method Of Arrival: EMS: [facility] bp 10:33 Acuity: GERBER 3 bp Triage Assessment: 10:33 General: Appears distressed, comfortable, obese, Behavior is cooperative, appropriate bp for age, anxious. Pain: Denies pain. EENT: No deficits noted. Neuro: Level of Consciousness is awake, alert, obeys commands, Oriented to person, place, time, situation, Appropriate for age Reports numbness in right leg. Cardiovascular: Rhythm is sinus rhythm. Respiratory: Reports shortness of breath Onset: The symptoms/episode began/occurred yesterday, the patient has mild shortness of breath. GI: No signs and/or symptoms were reported involving the gastrointestinal system. : No signs and/or symptoms were reported regarding the genitourinary system. Derm: No deficits noted. Musculoskeletal: No deficits noted. Historical: - Allergies: 12:19 Lortab; bp 12:19 Augmentin; bp - Home Meds: 12:19 alprazolam 1 mg Oral tab 1 tab BID for Anxiety [Active]; aspirin 81 mg Oral chew 1 tab bp once daily [Active]; digoxin 125 mcg Oral tab 1 tab once daily [Active]; folic acid 400 mcg Oral tab 1 tab once daily [Active]; Glipizide Oral [Active]; glyburide 5 mg Oral tab 1 tab 2 times per day [Active]; hydrochlorothiazide 25 mg Oral tab 1 tab once daily [Active]; metoprolol tartrate 25 mg Oral tab 1 tab 2 times per day for Hypertension [Active]; [place]-3 Fish Oil Oral daily [Active]; Probiotic Oral daily [Active]; Vitamin D Oral 5000 unit daily [Active]; - PMHx: 12:19 Atrial Fib; Diabetes - NIDDM; Hypertension; melanoma; bp - Immunization history:: Adult Immunizations unknown. - Social history:: Smoking status: Patient reports the use of cigarette tobacco products, unknown amount. Screenin:41 Abuse screen: Denies threats or abuse. Denies injuries from another. Nutritional bp screening: No deficits noted. Tuberculosis screening: No symptoms or risk factors identified. Fall Risk None identified. Assessment: 10:39 General: SEE TRIAGE NOTE. Cardiovascular: Rhythm is sinus rhythm. Respiratory: Airway bp is patent Respiratory effort is even, unlabored, Breath sounds are coarse bilaterally. 12:13 Reassessment: UOP PENDING, ALL OTHER ORDERS COMPLETE, DISPO PENDING. bp 13:45 Reassessment: MEDICATION DELIVERED FROM PHARMACY. NO FOCAL NEURO DEFICITS NOTED. ADMIT bp IN PROCESS. Vital Signs: 10:33 BP 160 / 88; Pulse 94; Resp 16; Temp 98; Pulse Ox 96% ; bp 12:13 BP 119 / 58; Pulse 61; Resp 17; Pulse Ox 98% ; bp 13:45 BP 171 / 93; Pulse 83; Resp 16; Pulse Ox 98% ; bp 16:00 BP 145 / 93; Pulse 70; Resp 16; Pulse Ox 100% ; bp NIH Stroke Scale Scores: 10:57 NIHSS Score: 0 antonio ED Course: 10:32 Patient arrived in ED. bp 10:34 Triage completed. bp 10:36 Mario Montes MD is Attending Physician. antonio 10:38 Arm band placed on. bp 10:41 Patient has correct armband on for positive identification. Bed in low position. Call bp light in reach. Side rails up X2. 10:49 Edu Cobos, RN is Primary Nurse. bp 11:11 EKG done, by ED staff, reviewed by Mario Montes MD. jb1 11:14 XRAY Chest (1 view) In Process Unspecified. EDMS 11:14 CT Head Brain wo Cont In Process Unspecified. EDMS 11:15 Inserted saline lock: 22 gauge in right antecubital area, using aseptic technique. bp Blood collected. 12:30 Spoke with Tia in outside lab requesting to add on a digoxin level. Tia estrella verified that the test could be added on with specimens already collected. 12:32 Aayush Rivera MD is Hospitalizing Provider. antonio 16:25 No provider procedures requiring assistance completed. Patient admitted, IV remains in bp place. Administered Medications: 11:15 Drug: NS 0.9% 1000 ml Route: IV; Rate: 1 bolus; Site: right antecubital; bp 16:26 Follow up: IV Status: Completed infusion; IV Intake: 1000ml bp 11:20 Drug: foLIC Acid 1 mg Route: IVPB; Site: right antecubital; bp 16:26 Follow up: IV Status: Completed infusion bp 13:00 Drug: Eliquis 5 mg Route: PO; bp 16:26 Follow up: Response: No adverse reaction bp 13:00 Drug: Aspirin 81 mg Route: PO; bp 16:25 Follow up: Response: No adverse reaction bp Intake: 16:26 IV: 1000ml; Total: 1000ml. bp Outcome: 12:33 Decision to Hospitalize by Provider. antonio 16:24 Admitted to Med/surg accompanied by tech, via wheelchair, room 213, with chart, Report bp called to NAHUM JOSHI 16:25 Condition: stable bp 16:25 Instructed on the need for admit. 16:38 Patient left the ED. bp NIH Stroke Scale - NIH Stroke Score Date: 03/01/2020 Time: 10:57 Total Score = 0 1a. Level of Consciousness (LOC) - 0(Alert) 1b. Level of Consciousness (LOC) (Year \T\ Age) - 0(Both) 1c. LOC Commands (Open \T\ Closes Eyes/Puppy Trainer) - 0(Both) 2. Best Gaze (Lateral Gaze Paresis) - 0(Normal) 3. Visual Field Loss - 0(No visual loss) 4. Facial Palsy - 0(Normal) 5a. Left Arm: Motor (10-second hold) - 0(No drift) 5b. Right Arm: Motor (10-second hold) - 0(No drift) 6a. Left Leg: Motor (5-second hold - always test supine) - 0(No drift) 6b. Right Leg: Motor (5-second hold - always test supine) - 0(No drift) 7. Limb Ataxia (finger/nose \T\ heel/ayala - test with eyes open) - 0(Absent) 8. Sensory Loss (pinprick arms/legs/face) - 0(Normal) 9. Best Language: Aphasia (description/naming/reading) - 0(No aphasia) 10. Dysarthria (speech clarity - read or repeat words) - 0(Normal) 11. Extinction and Inattention (visual/tactile/auditory/spatial/personal) - 0(No abnormality) Initials: antonio Signatures: Dispatcher [employer] [place] [id number] Mario Montes MD MD cha Thompson, Moriah mt Peltier, Brian, RN RN bp
[2020-03-01] MEDS ORDERED: ONDANSETRON 4 MG/2 ML VIAL IV PRN (13:43)
[2020-03-01] MEDS ORDERED: ACETAMINOPHEN 500 MG TAB PO PRN (13:43)
[2020-03-01] MEDS ORDERED: ALPRAZOLAM 1 MG TABLET PO PRN (13:46)
--- NOTE | 2020-03-01 13:50 | P.PN ---
Subjective Date of Service: 03/01/20 Chief Complaint: Numbness Subjective: No new changes Physical Examination - Physical Exam General: Alert, In no apparent distress, Oriented x3 HEENT: Atraumatic, Normocephalic Neck: Supple Respiratory: Clear to auscultation bilaterally - Studies Laboratory Data (last 24 hrs) 03/01/20 11:25: WBC 5.6, Hgb 15.0, Hct 44.0, Plt Count 172 03/01/20 11:25: Sodium 139, Potassium 3.8, BUN 11, Creatinine 0.98, Glucose 220 H, Magnesium 2.1, Total Bilirubin 0.9, AST 17, ALT 25, Alkaline Phosphatase 54 03/01/20 11:25: PT 13.6 H, INR 1.16
[2020-03-01] MEDS ORDERED: ASPIRIN EC 81 MG TAB PO ONE (13:53)
[2020-03-01] MEDS ORDERED: APIXABAN 5 MG TABLET PO ONE (14:00)
--- NOTE | 2020-03-01 14:18 | P.HP ---
Certification for Inpatient Patient admitted to: Observation With expected LOS: <2 Midnights Practitioner: I am a practitioner with admitting privileges, knowledge of patient current condition, hospital course, and medical plan of care. Services: Services provided to patient in accordance with Admission requirements found in Title 42 Section 412.3 of the Code of Federal Regulations Patient History Date of Service: 03/01/20 Reason for admission: Numbness on the right side History of Present Illness: 65 yrs old female with past medical history of hypertension, AFib ,anxiety, depression, hyperlipidemia, DM recent CVA. came with numbness of the right side of right lower extremity which started all of a sudden and pressure was Panicking and was brought to ER for further management. Patient denies any fever or chills The patient was recently been discharged from here for acute CVA Allergies acetaminophen [From Lortab] Allergy (Verified 07/29/18 02:37) Hives/Rash hydrocodone [From Lortab] Allergy (Verified 07/29/18 02:37) Hives/Rash amoxicillin [From Augmentin] Adverse Reaction (Verified 07/29/18 02:37) Hives/Rash clavulanic acid [From Augmentin] Adverse Reaction (Verified 07/29/18 02:37) Hives/Rash Home medications list reviewed: Yes Home Medications: ALPRAZolam [Xanax*] 1 mg PO BID PRN 07/24/15 Digoxin [Digitek] 125 mcg PO BID 07/24/15 Folic Acid/Vit B Complex and C [Balanced B-Complex Caplet] 500 mcg PO BEDTIME 07/24/15 Cholecalciferol (Vitamin D3) [Vitamin D 5,000 IU Cap*] 1 cap PO DAILY 07/29/18 glipiZIDE [Glipizide] 10 mg PO BID 02/28/20 Apixaban [Eliquis] 5 mg PO BID #60 tablet 02/29/20 Aspirin [Aspirin EC 81 MG] 81 mg PO DAILY #30 tablet. 02/29/20 Atorvastatin Calcium [Lipitor] 80 mg PO BEDTIME #30 tab 02/29/20 - Past Medical/Surgical History Diabetic: Yes Past Medical History: Reviewed- Non-Contributory -: Diabetes mellitus, diet controlled -: Lymphoma -: Metastatic melanoma -: Atrial fibrillation -: Depression -: Hyperlipidemia -: Tobacco abuse Past Surgical History: Reviewed- Non-Contributory -: Mastoid Ear Surgery 1973 -: Hysterectomy 1978 -: Lymph node resection left arm -: Melanoma removal left arm -: tooth pick removal on left foot Psychosocial/ Personal History: The patient is . She has 6 children. - Family History Family History: Reviewed- Non-Contributory - Family History Mother -: Heart disease, Hypertension Brother -: Heart disease, Cancer - Social History Smoking Status: Former smoker Alcohol use: No CD- Drugs: No Caffeine use: Yes Review of Systems 10-point ROS is otherwise unremarkable Physical Examination - Vital Signs Temperature: 88 F - Physical Exam General: Alert, In no apparent distress, Oriented x3 HEENT: Atraumatic, Normocephalic Neck: Supple Respiratory: Clear to auscultation bilaterally, Normal air movement Cardiovascular: Normal pulses, Regular rate/rhythm Capillary refill: <2 Seconds Gastrointestinal: Soft and benign, W/out hepatosplenomegaly Musculoskeletal: No clubbing, No swelling Integumentary: No rashes Neurological: Normal speech, Normal strength at 5/5 x4 extr Lymphatics: No axilla or inguinal lymphadenopathy - Studies Laboratory Data (last 24 hrs) 03/01/20 11:25: WBC 5.6, Hgb 15.0, Hct 44.0, Plt Count 172 03/01/20 11:25: Sodium 139, Potassium 3.8, BUN 11, Creatinine 0.98, Glucose 220 H, Magnesium 2.1, Total Bilirubin 0.9, AST 17, ALT 25, Alkaline Phosphatase 54 03/01/20 11:25: PT 13.6 H, INR 1.16 Assessment and Plan - Problems (Diagnosis) (1) A-fib Onset Date: 09/01/16 Current Visit: No Status: Acute (2) Elevated troponin Onset Date: 07/31/18 Current Visit: No Status: Acute (3) Depression Onset Date: 07/31/18 Current Visit: No Status: Chronic Qualifiers: (4) Diabetes mellitus Onset Date: 07/31/18 Current Visit: No Status: Chronic Qualifiers: (5) History of melanoma Current Visit: No Status: Chronic (6) Hyperlipidemia Onset Date: 07/31/18 Current Visit: No Status: Chronic Qualifiers: (7) Hypertension Onset Date: 07/31/18 Current Visit: No Status: Chronic Qualifiers: (8) Tobacco abuse Current Visit: No Status: Chronic - Advance Directives Does patient have a Living Will: No Does patient have a Durable POA for Healthcare: No Physician Review Additional Text: Numbness of the right lower extremity Recent subacute CVA Elevated troponin secondary to atrial fibrillation. Elevated BNP secondary to atrial fibrillation. Dyslipidemia, Diabetes Hypertension Hyperlipidemia Anxiety. History of melanoma. Monitor under telemetry trend cardiac enzymes Neuro vital signs monitored patient had a CT which is consistent with subacute infarct Continue home medications including aspirin and Eliquis Insulin sliding scale Continue home medications and titrate as needed GI/DVT prophylaxis Advanced directives full code possible Dc in a.m. Time Spent Managing Pts Care (In Minutes): 42
[2020-03-01 17:28] VITALS: BMI 36.4
[2020-03-01] MEDS ORDERED: LABETALOL 20 MG/4ML SYRINGE IV SCH (18:00)
[2020-03-01] MEDS ORDERED: LABETALOL 20 MG/4ML SYRINGE IV PRN (18:19)
[2020-03-01] MEDS: APIXABAN 5 MG TABLET PO SCH (20:35)
[2020-03-01] MEDS: DIGOXIN 0.125 MG TABLET PO SCH (20:35)
[2020-03-01] MEDS: glipiZIDE 5 MG TAB PO SCH (20:36)
[2020-03-01] MEDS ORDERED: HYDRALAZINE HCL 20 MG/ML VIAL IV PRN (20:46)
[2020-03-01] MEDS ORDERED: ATORVASTATIN 80 MG TAB PO SCH (21:00)
[2020-03-01] MEDS ORDERED: FOLIC ACID PO SCH (21:00)
[2020-03-01] MEDS ORDERED: VIT B COMPLEX AND C PO SCH (21:00)
[2020-03-01] MEDS ORDERED: HOME MED 1 EA UNK (Glipizide [Glipizide] 10 MG) PO SCH (21:00)
[2020-03-01 23:29] LABS: Urine Appearance CLEAR; Urine Bilirubin NEGATIVE (NEG); Urine Blood NEGATIVE (NEG); Urine Color YELLOW; Urine Glucose TRACE (NEG); Urine Protein NEGATIVE (NEG); Urine Specific Gravity 1.015 (1.005-1.030)
[2020-03-01 23:31] LABS: Urine Microscopic Reflex NO UMIC
[2020-03-02 06:26] LABS: Absolute Lymphocytes (CBC) 1.9 K/uL (0.7-4.9); Basophils % 0.5 % (0-1.3); Hematocrit 39.9 % (36.0-45.0); Lymphocytes % 35.3 % (15.3-44.8); MPV 10.7 fL (7.6-11.3); RBC Red Blood Cell Count 4.32 M/uL (3.86-4.86)
[2020-03-02 06:30] VITALS: TEMP 97.3
[2020-03-02 06:37] LABS: Albumin 3.6 g/dL (3.4-5.0); Bilirubin Total 0.5 mg/dL (0.2-1.0); Phosphorus 4.7 mg/dL (2.5-4.9); Potassium 3.8 mmol/L (3.5-5.1); Protein, Total 7.2 g/dL (6.4-8.2)
--- NOTE | 2020-03-02 08:52 | P.DS ---
Admission Date: 03/01/20 Discharge Date: 03/02/20 Disposition: ROUTINE DISCHARGE Discharge Condition: GOOD Reason for Admission: Numbness on the right side - Problems (1) A-fib Onset Date: 09/01/16 Current Visit: No Status: Acute (2) Elevated troponin Onset Date: 07/31/18 Current Visit: No Status: Acute (3) Depression Onset Date: 07/31/18 Current Visit: No Status: Chronic Qualifiers: (4) Diabetes mellitus Onset Date: 07/31/18 Current Visit: No Status: Chronic Qualifiers: (5) History of melanoma Current Visit: No Status: Chronic (6) Hyperlipidemia Onset Date: 07/31/18 Current Visit: No Status: Chronic Qualifiers: (7) Hypertension Onset Date: 07/31/18 Current Visit: No Status: Chronic Qualifiers: (8) Tobacco abuse Current Visit: No Status: Chronic Brief History of Present Illness: 65 yrs old female with past medical history of hypertension, AFib ,anxiety, depression, hyperlipidemia, DM recent CVA. came with numbness of the right side of right lower extremity which started all of a sudden and pressure was Panicking and was brought to ER for further management. Patient denies any fever or chills The patient was recently been discharged from here for acute CVA Hospital Course: Numbness of the right lower extremity Recent subacute CVA Elevated troponin secondary to atrial fibrillation. Elevated BNP secondary to atrial fibrillation. Dyslipidemia, Diabetes Hypertension Hyperlipidemia Anxiety. History of melanoma. Patient was admitted and was monitor closely under telemetry Cardiac enzymes slightly elevated possibly due to AFib with RVR CT head shows no acute changes other than the recent stroke No further focal and chronic deficits noted Patient was instructed to continue with the he recalls for stroke protection also advised to continue aspirin Patient wanted go home and is being discharged home today in a stable condition with advice to follow up with PCP in 1 week and also with Cardiology and Neurology in 1-2 weeks Vital Signs/Physical Exam: Temp Pulse Resp BP Pulse Ox 97.3 F 72 16 148/69 H 95 03/02/20 04:00 03/02/20 04:00 03/02/20 04:00 03/02/20 04:00 03/02/20 04:00 General: Alert, In no apparent distress HEENT: Atraumatic, Normocephalic Neck: Supple, JVD not distended Respiratory: Clear to auscultation bilaterally, Normal air movement Cardiovascular: Irregular heart rate/rhythm Capillary refill: <2 Seconds Gastrointestinal: Soft and benign, W/out hepatosplenomegaly Musculoskeletal: No clubbing Integumentary: No rashes Neurological: Normal speech, Normal strength at 5/5 x4 extr Lymphatics: No axilla or inguinal lymphadenopathy Laboratory Data at Discharge: WBC 5.5 K/uL (4.3-10.9) 03/02/20 05:46 Hgb 13.7 g/dL (12.0-15.0) 03/02/20 05:46 Hct 39.9 % (36.0-45.0) 03/02/20 05:46 Plt Count 151 K/uL (152-406) L 03/02/20 05:46 PT 13.6 SECONDS (9.5-12.5) H 03/01/20 11:25 INR 1.16 03/01/20 11:25 Sodium 141 mmol/L (136-145) 03/02/20 05:46 Potassium 3.8 mmol/L (3.5-5.1) 03/02/20 05:46 BUN 15 mg/dL (7-18) 03/02/20 05:46 Creatinine 0.84 mg/dL (0.55-1.3) 03/02/20 05:46 Glucose 200 mg/dL (74-106) H 03/02/20 05:46 Phosphorus 4.7 mg/dL (2.5-4.9) 03/02/20 05:46 Magnesium 2.1 mg/dL (1.8-2.4) 03/01/20 11:25 Total Bilirubin 0.5 mg/dL (0.2-1.0) 03/02/20 05:46 AST 16 U/L (15-37) 03/02/20 05:46 ALT 22 U/L (12-78) 03/02/20 05:46 Alkaline Phosphatase 55 U/L (45-117) 03/02/20 05:46 Home Medications: ALPRAZolam [Xanax*] 1 mg PO TID 07/24/15 Digoxin [Digitek] 125 mcg PO DAILY 07/24/15 Folic Acid/Vit B Complex and C [Balanced B-Complex Caplet] 400 mcg PO BEDTIME 07/24/15 Cholecalciferol (Vitamin D3) [Vitamin D 5,000 IU Cap*] 1 cap PO DAILY 07/29/18 glipiZIDE [Glipizide] 5 mg PO BID 02/28/20 Apixaban [Eliquis] 5 mg PO BID #60 tablet 02/29/20 Aspirin [Aspirin EC 81 MG] 81 mg PO DAILY #30 tablet. 02/29/20 Diet: ADA Activity: Ad nabil Followup: Anthony Jean MD [ACTIVE - CAN ADMIT] - (Call to make an appointment. ) Carlos Allen MD [ASSOCIATE-ACTIVE - CAN ADMIT] - (Call to make an appointment. ) Time spent managing pt's care (in minutes): 41
[2020-03-02] MEDS ORDERED: POTASSIUM 25 MEQ EFFERV TAB PO ONE (09:00)
[2020-03-02] MEDS ORDERED: ASPIRIN EC 81 MG TAB PO SCH (09:00)
[2020-03-02] MEDS ORDERED: VITAMIN D 5,000 UNIT CAP PO SCH (09:00)
[2020-03-02 09:12] VITALS: O2SAT 93
[2020-03-02] MEDS: glipiZIDE 5 MG TAB PO SCH (10:10)
[2020-03-02] MEDS: APIXABAN 5 MG TABLET PO SCH (10:10)
[2020-03-02] MEDS: DIGOXIN 0.125 MG TABLET PO SCH (10:11)
[2020-03-02 10:14] VITALS: BP 147/70
== END 2020-03-02 10:37 | disposition home or self-care (01) ==
LOC: ER 10:31 → ERHOLD 13:44 → 2ND 16:24
PROVIDERS: ADMIT Family Medicine; ATTEND Family Medicine
DX: I63.9 Cerebral infarction, unspecified (principal); I48.91 Unspecified atrial fibrillation; E78.5 Hyperlipidemia, unspecified; E11.9 Type 2 diabetes mellitus without complications; I10 Essential (primary) hypertension; F41.9 Anxiety disorder, unspecified; F32.9 Major depressive disorder, single episode, unspecified; Z79.82 Long term (current) use of aspirin; Z79.01 Long term (current) use of anticoagulants; Z79.84 Long term (current) use of oral hypoglycemic drugs; Z79.899 Other long term (current) drug therapy; Z85.820 Personal history of malignant melanoma of skin; Z85.72 Personal history of non-Hodgkin lymphomas; Z87.891 Personal history of nicotine dependence
CPT/HCPCS: 96365; 93005; 85025 ×2; 80048; 36415; 83735; 84100; 85610; 80162; 82947; 80076; 85652; 81003; 84484; 80053; 83880; 86140; 70450; 71045; 94760 ×3; 99285; 96366; J7030; G0378 ×3; J0360

== ENCOUNTER 2020-11-28 11:00 | Emergency (ER) | payer OTHER ==
[2020-11-28 13:19] LABS: Albumin 4.3 g/dL (3.4-5.0); Bilirubin Direct 0.2 mg/dL (0-0.2); Bilirubin Total 0.7 mg/dL (0.2-1.0); Potassium 4.1 mmol/L (3.5-5.1); Protein, Total 8.1 g/dL (6.4-8.2)
--- NOTE | 2020-11-28 13:32 | RAD REPORT ---
EXAM DESCRIPTION: CT - Abdomen Pelvis W Contrast - 11/28/2020 1:10 pm CLINICAL HISTORY: Right flank and paraspinal pain COMPARISON: No comparisons TECHNIQUE: Biphasic, helical CT imaging of the abdomen and pelvis was performed following 100 ml non -ionic IV contrast. No oral contrast administered. All CT scans are performed using dose optimization technique as appropriate and may include automated exposure control or mA/KV adjustment according to patient size. FINDINGS: No suspicious findings in the lung bases. Liver has a lobulated nodular capsule contour which can be an indication of cirrhosis or other diffus e hepatic parenchymal disease process. No focal liver lesion. No portal vein abnormality. Pancreas an d spleen show no suspicious findings. Multi stone cholelithiasis is present. No gallbladder distention, wall thickening or pericholecystic fluid. No biliary tree abnormality. Duct stones can be occult. Symmetric renal function is seen with no hydronephrosis or suspicious renal mass. No pyelonephritis o r acute parenchymal process. No bladder abnormalities. No adrenal abnormalities. Uterus is absent. Ov lamont are absent or atrophic. No ovarian mass identifiable. No gastric dilatation wall thickening. No acute small bowel finding. No direct or indirect evidence a ppendicitis. An acute colon process is not identifiable. No free air, free fluid or inflammatory stranding. No hernia, mass or bulky lymphadenopathy. No suspicious bony findings. IMPRESSION: Contrast enhanced CT abdomen and pelvis showing no acute or emergent finding. Patient has multi stone cholelithiasis but no additional findings to suspect acute cholecystitis or b iliary obstruction. Duct stones can be occult. Appearance of the liver suggest cirrhosis or hepatic parenchymal disease. No focal liver lesion ident ified.
[2020-11-28 13:54] LABS: Absolute Lymphocytes (CBC) 2.4 K/uL (0.7-4.9); Basophils % 0.5 % (0-1.3); Hematocrit 41.7 % (36.0-45.0); Lymphocytes % 30.5 % (15.3-44.8); MPV 11.5 fL (7.6-11.3); RBC Red Blood Cell Count 4.57 M/uL (3.86-4.86)
[2020-11-28 14:26] LABS: Urine Blood Negative (Negative); Urine Glucose Negative (Negative); Urine Protein Negative (Negative); Urine Specific Gravity 1.015 (1.005-1.030)
--- NOTE | 2020-11-28 15:00 | ER ---
Nurse's Notes [facility] Name: Dimple Cisneros Age: 65 yrs Sex: Female : 1955 Arrival Date: 11/28/2020 Time: 11:04 Bed 20 Private MD: Diagnosis: Posterior thorax Pain Presentation: 11/28 11:18 Chief complaint: Low back pain x 1 week, intermittent bilateral lower extremity hb weakness and numbness of right hand x 3 days. Ambulated to triage with steady gait. VAN NEGATIVE. Coronavirus screen: At this time, the client does not indicate any symptoms associated with coronavirus-19. Ebola Screen: No symptoms or risks identified at this time. Initial Sepsis Screen: Does the patient meet any 2 criteria? No. Patient's initial sepsis screen is negative. Does the patient have a suspected source of infection? No. Patient's initial sepsis screen is negative. Risk Assessment: Do you want to hurt yourself or someone else? Patient reports no desire to harm self or others. Onset of symptoms was November 21, 2020. 11:18 Method Of Arrival: Ambulatory hb 11:18 Acuity: GERBER 3 hb Historical: - Allergies: 11:21 Augmentin; hb 11:21 Lortab; hb - PMHx: 11:21 Atrial Fib; Diabetes - NIDDM; Hypertension; melanoma; hb - Immunization history:: Client reports having NOT received the Covid vaccine. Pneumococcal vaccine is not up to date, Flu vaccine is not up to date. - Social history:: Smoking status: Patient reports the use of cigarette tobacco products, smokes one pack cigarettes per day. Screenin:21 Abuse screen: Denies threats or abuse. Denies injuries from another. Nutritional ca1 screening: No deficits noted. Tuberculosis screening: No symptoms or risk factors identified. Fall Risk None identified. Assessment: 12:21 General: Appears in no apparent distress. comfortable, Behavior is calm, cooperative, ca1 appropriate for age. Pain: Complains of pain in right mid back Pain radiates to right subscapular area Pain currently is 10 out of 10 on a pain scale. Quality of pain is described as burning, Pain began 2 weeks [employer]. Neuro: Level of Consciousness is awake, alert, obeys commands, Oriented to person, place, time, situation, Appropriate for age tingling and numbness on Kalia lower extremities, knees down. More in the morning when I wake up. Cardiovascular: Heart tones S1 S2 present Capillary refill < 3 seconds Patient's skin is warm and dry. Respiratory: Airway is patent Respiratory effort is even, unlabored, Respiratory pattern is regular, symmetrical, Breath sounds are clear. GI: Abdomen is round non-distended, Bowel sounds present X 4 quads. Abd is soft and non tender X 4 quads. : No signs and/or symptoms were reported regarding the genitourinary system. EENT: No signs and/or symptoms were reported regarding the EENT system. Derm: Skin is intact, is healthy with good turgor, Skin is pink, warm \T\ dry. Musculoskeletal: Circulation, motion, and sensation intact. Capillary refill < 3 seconds. 13:35 Reassessment: Patient appears in no apparent distress at this time. Patient and/or ca1 family updated on plan of care and expected duration. Pain level reassessed. Patient is alert, oriented x 3, equal unlabored respirations, skin warm/dry/pink. 14:34 Reassessment: Patient appears in no apparent distress at this time. Patient and/or ca1 family updated on plan of care and expected duration. Pain level reassessed. Patient is alert, oriented x 3, equal unlabored respirations, skin warm/dry/pink. 15:17 Reassessment: Patient appears in no apparent distress at this time. Patient is alert, ca1 oriented x 3, equal unlabored respirations, skin warm/dry/pink. Vital Signs: 11:18 BP 145 / 76; Pulse 78; Resp 24; Temp 98.3(O); Pulse Ox 98% on R/A; Weight 92.53 kg; hb Height 5 ft. 7 in. (170.18 cm); Pain 9/10; 13:35 BP 157 / 87; Pulse 83; Resp 18 S; Pulse Ox 96% on R/A; ca1 14:34 BP 151 / 71; Pulse 85; Resp 16 S; Pulse Ox 98% on R/A; ca1 11:18 Body Mass Index 31.95 (92.53 kg, 170.18 cm) hb ED Course: 11:04 Patient arrived in ED. ds1 11:21 Triage completed. hb 11:21 Arm band placed on. hb 12:07 Smita Calvillo, RN is Primary Nurse. ca1 12:21 Patient has correct armband on for positive identification. Bed in low position. Call ca1 light in reach. Side rails up X 1. Pulse ox on. NIBP on. Warm blanket given. 12:23 Kevan Santizo MD is Attending Physician. kdr 12:54 Initial lab(s) drawn, by me, sent to lab. Inserted saline lock: 20 gauge in right jp3 wrist, using aseptic technique. Blood collected. 12:55 IV discontinued, intact, bleeding controlled, No redness/swelling at site. Pressure jp3 dressing applied, Pt report pain at IV site. NO redness. no swelling. flushed great and tomasz blood great. IV removed at pts request. 12:57 Verbal reassurance given. jp3 12:59 Inserted saline lock: 20 gauge in right antecubital area, using aseptic technique. ca1 13:10 CT Abd/Pelvis - IV Contrast Only In Process Unspecified. EDMS 15:16 No provider procedures requiring assistance completed. ca1 15:17 IV discontinued, intact, bleeding controlled, No redness/swelling at site. Pressure ca1 dressing applied. Administered Medications: 14:58 Not Given (Patient Refused): [place] (HYDROcodone-acetaminophen) 10 mg-325 mg 1 tabs PO ca1 once; RASS on ADMIN: Combtv4, Very Agttd3, Agttd2, Rstlss1, AlertClm0, Drwsy-1, Lt Sdtn-2, Mod Sdtn-3, Dp Sdtn-4, UnArsble-5 15:03 Drug: Tylenol 1000 mg Route: PO; ca1 15:17 Follow up: Response: No adverse reaction; Pain is decreased ca1 Outcome: 15:00 Discharge ordered by . kdr 15:17 Discharged to home ambulatory, with family. ca1 15:17 Condition: stable 15:17 Discharge instructions given to patient, Instructed on discharge instructions, follow up and referral plans. no drinking with medication, no driving heavy equipment, medication usage, Demonstrated understanding of instructions, follow-up care, medications, Prescriptions given X 1. 15:17 Patient left the ED. ca1 Signatures: Dispatcher [employer] EDMS Kevan Santizo MD MD kdr Amanda Montiel ds1 Jojo Rose RN RN Kwabena Moffett jp3 Smita Calvillo RN RN ca1 Corrections: (The following items were deleted from the chart) 11:22 11:18 Pulse 118bpm; Resp 24bpm; Pulse Ox 98% RA; Temp 98.3F Oral; 92.53 kg; Height 5 hb ft. 7 in.; BMI: 31.9; Pain 9/10; hb 18:01 15:20 Response: No adverse reaction; Pain is decreased ca1 ca1
--- NOTE | 2020-11-28 15:00 | EDPHYS ---
Physician Documentation [facility] Name: Dimple Cisneros Age: 65 yrs Sex: Female : 1955 Arrival Date: 11/28/2020 Time: 11:04 Bed 20 Private MD: ED Physician Kevan Santizo HPI: 11/28 12:43 This 65 yrs old Female presents to ER via Ambulatory with complaints of Back kdr Pain. 12:43 The patient presents with pain that is acute, with no known mechanism of injury. The kdr symptoms are located in the Right CVA and paraspinal. Onset: The symptoms/episode began/occurred suddenly, 2 week(s) ago. Right flank - sometimes feels constricting circumferentially on low abdomen. Associated signs and symptoms: The patient has no apparent associated signs or symptoms. The problem was sustained from unknown cause. Modifying factors: The patient symptoms are alleviated by remaining still, the patient symptoms are aggravated by any movement, bending, movement, Pressure on area. Severity of symptoms: At their worst the symptoms were mild, moderate, just prior to arrival, in the emergency department the symptoms are unchanged. The patient has not experienced similar symptoms in the past. The patient has been recently seen at the [facility] Emergency Department, just prior to arrival. Historical: - Allergies: 11:21 Augmentin; hb 11:21 Lortab; hb - PMHx: 11:21 Atrial Fib; Diabetes - NIDDM; Hypertension; melanoma; hb - Immunization history:: Client reports having NOT received the Covid vaccine. Pneumococcal vaccine is not up to date, Flu vaccine is not up to date. - Social history:: Smoking status: Patient reports the use of cigarette tobacco products, smokes one pack cigarettes per day. ROS: 12:43 Constitutional: Negative for fever, chills, and weight loss, Eyes: Negative for injury, kdr pain, redness, and discharge, ENT: Negative for injury, pain, and discharge, Neck: Negative for injury, pain, and swelling, Cardiovascular: Negative for chest pain, palpitations, and edema, Respiratory: Negative for shortness of breath, cough, wheezing, and pleuritic chest pain, Abdomen/GI: Negative for abdominal pain, nausea, vomiting, diarrhea, and constipation, : Negative for injury, bleeding, discharge, and swelling, MS/Extremity: Negative for injury and deformity, Skin: Negative for injury, rash, and discoloration, Neuro: Negative for headache, weakness, numbness, tingling, and seizure activity. Psych: Negative for depression, anxiety, suicide ideation, homicidal ideation, and hallucinations, Allergy/Immunology: Negative for hives, rash, and allergies, Endocrine: Negative for neck swelling, polydipsia, polyuria, polyphagia, and marked weight changes, Hematologic/Lymphatic: Negative for swollen nodes, abnormal bleeding, and unusual bruising. 12:43 Back: Positive for pain at rest, flank pain, on the right, radiated pain, of the right mid back and right low back. Exam: 12:43 Constitutional: This is a well developed, well nourished patient who is awake, alert, kdr and in no acute distress. Head/Face: Normocephalic, atraumatic. Eyes: Pupils equal round and reactive to light, extra-ocular motions intact. Lids and lashes normal. Conjunctiva and sclera are non-icteric and not injected. Cornea within normal limits. Periorbital areas with no swelling, redness, or edema. Neck: Trachea midline, no thyromegaly or masses palpated, and no cervical lymphadenopathy. Supple, full range of motion without nuchal rigidity, or vertebral point tenderness. No Meningismus. Chest/axilla: Normal chest wall appearance and motion. Nontender with no deformity. No lesions are appreciated. Cardiovascular: Regular rate and rhythm with a normal S1 and S2. No gallops, murmurs, or rubs. Normal PMI, no JVD. No pulse deficits. Respiratory: Lungs have equal breath sounds bilaterally, clear to auscultation and percussion. No rales, rhonchi or wheezes noted. No increased work of breathing, no retractions or nasal flaring. Abdomen/GI: Soft, non-tender, with normal bowel sounds. No distension or tympany. No guarding or rebound. No evidence of tenderness throughout. Skin: Warm, dry with normal turgor. Normal color with no rashes, no lesions, and no evidence of cellulitis. MS/ Extremity: Pulses equal, no cyanosis. Neurovascular intact. Full, normal range of motion. Neuro: Awake and alert, GCS 15, oriented to person, place, time, and situation. Cranial nerves II-XII grossly intact. Motor strength 5/5 in all extremities. Sensory grossly intact. Cerebellar exam normal. Normal gait. Psych: Awake, alert, with orientation to person, place and time. Behavior, mood, and affect are within normal limits. 12:43 Back: pain, that is mild, of the right mid back and right low back, ROM is painful. Vital Signs: 11:18 BP 145 / 76; Pulse 78; Resp 24; Temp 98.3(O); Pulse Ox 98% on R/A; Weight 92.53 kg; hb Height 5 ft. 7 in. (170.18 cm); Pain 9/10; 13:35 BP 157 / 87; Pulse 83; Resp 18 S; Pulse Ox 96% on R/A; ca1 14:34 BP 151 / 71; Pulse 85; Resp 16 S; Pulse Ox 98% on R/A; ca1 11:18 Body Mass Index 31.95 (92.53 kg, 170.18 cm) hb MDM: 15:00 Patient medically screened. kdr 15:04 Data reviewed: vital signs, nurses notes, lab test result(s), radiologic studies. kdr Counseling: I had a detailed discussion with the patient and/or guardian regarding: the historical points, exam findings, and any diagnostic results supporting the discharge/admit diagnosis, lab results, radiology results, the need for outpatient follow up. 11/28 12:43 Order name: Basic Metabolic Panel; Complete Time: 14:35 kdr 11/28 12:43 Order name: CBC with Diff; Complete Time: 14:35 kdr 11/28 12:43 Order name: Hepatic Function; Complete Time: 14:35 kdr 11/28 12:43 Order name: Lipase; Complete Time: 14:35 kdr 11/28 13:36 Order name: CREATININE WHOLE BLOOD; Complete Time: 14:35 EDOR 11/28 14:26 Order name: Urine Dipstick-Ancillary EDOR 11/28 12:41 Order name: CT Abd/Pelvis - IV Contrast Only; Complete Time: 14:35 kdr 11/28 12:43 Order name: IV Saline Lock; Complete Time: 14:28 kdr 11/28 12:43 Order name: Labs collected and sent; Complete Time: 12:57 kdr 11/28 12:43 Order name: Urine Dipstick-Ancillary (obtain specimen); Complete Time: 14:28 kdr Administered Medications: 14:58 Not Given (Patient Refused): [place] (HYDROcodone-acetaminophen) 10 mg-325 mg 1 tabs PO ca1 once; RASS on ADMIN: Combtv4, Very Agttd3, Agttd2, Rstlss1, AlertClm0, Drwsy-1, Lt Sdtn-2, Mod Sdtn-3, Dp Sdtn-4, UnArsble-5 15:03 Drug: Tylenol 1000 mg Route: PO; ca1 15:17 Follow up: Response: No adverse reaction; Pain is decreased ca1 Disposition: 11/28/20 15:00 Discharged to Home. Impression: Posterior thorax Pain. - Condition is Stable. - Discharge Instructions: Chest Wall Pain, [id number], Back Pain, Adult, [id number]. - Prescriptions for Tylenol- Codeine #3 300-30 mg Oral Tablet - take 1 tablet by ORAL route every 4-6 hours As needed; 8 tablet. - Medication Reconciliation Form, Thank You Letter, Prescription Opioid Use form. - Follow up: Private Physician; When: 2 - 3 days; Reason: If symptoms return, Further diagnostic work-up, Recheck today's complaints, Continuance of care, Re-evaluation by your physician. - Problem is an ongoing problem. - Symptoms have improved. Signatures: Dispatcher [employer] EDMS Kevan Santizo MD MD kdr Jojo Rose, RN RN AcSmita cross RN RN ca1 Corrections: (The following items were deleted from the chart) 15:17 15:00 11/28/2020 15:00 Discharged to Home. Impression: Posterior thorax Pain. Condition ca1 is Stable. Forms are Medication Reconciliation Form, Thank You Letter, Antibiotic Education, Prescription Opioid Use. Follow up: Private Physician; When: 2 - 3 days; Reason: If symptoms return, Further diagnostic work-up, Recheck today's complaints, Continuance of care, Re-evaluation by your physician. Problem is an ongoing problem. Symptoms have improved. kdr
[2020-11-28] MEDS ORDERED: HYDROCODONE/APAP 10/325 TAB ONE (15:07)
[2020-11-28] MEDS ORDERED: ACETAMINOPHEN 500 MG TAB ONE (15:21)
[2020-11-28 15:26] VITALS: TEMP 98.3
[2020-11-28 15:28] VITALS: BP 151/71; O2SAT 98
== END 2020-11-28 15:17 | disposition home or self-care (01) ==
LOC: ER 11:00
DX: M54.6 Pain in thoracic spine (principal); I10 Essential (primary) hypertension; F17.210 Nicotine dependence, cigarettes, uncomplicated; Z88.1 Allergy status to other antibiotic agents; Z88.5 Allergy status to narcotic agent
CPT/HCPCS: 85025; 80048; 36415; 82565; 80076; 81003; 83690; 74177; 99284; Q9967

== ENCOUNTER 2021-01-09 15:33 | Emergency (ER) | payer OTHER ==
--- NOTE | 2021-01-09 18:32 | RAD REPORT ---
EXAM DESCRIPTION: Tanya Reza (2 Views)01/09/2021 6:23 pm CLINICAL HISTORY: Cough COMPARISON: 2019 FINDINGS: The lungs appear clear of acute infiltrate. The heart is mildly enlarged IMPRESSION: No acute abnormalities displayed
[2021-01-09] MEDS ORDERED: IPRATROPIUM BROM 0.5MG/2.5ML ONE (18:39)
[2021-01-09] MEDS ORDERED: ALBUTEROL 2.5 MG/3 ML NEB SOL ONE (18:39)
[2021-01-09] MEDS ORDERED: LEVALBUTEROL 1.25 MG/3 ML NEB ONE (18:56)
--- NOTE | 2021-01-09 20:13 | EDPHYS ---
Physician Documentation [facility] Name: Dimple Cisneros Age: 65 yrs Sex: Female : 1955 Arrival Date: 01/09/2021 Time: 15:38 Bed 18 Private MD: ED Physician Kevan Santizo HPI: 01/09 18:35 This 65 yrs old Female presents to ER via Ambulatory with complaints of jr8 Cough, Chest Congestion. 18:35 The patient or guardian reports cough, that is intermittent, described as moderate, jr8 with productive sputum, that is yellow. Onset: The symptoms/episode began/occurred acutely, yesterday. Severity of symptoms: At their worst the symptoms were moderate, in the emergency department the symptoms are unchanged. Modifying factors: The symptoms are alleviated by nothing, the symptoms are aggravated by nothing. Associated signs and symptoms: Pertinent positives: shortness of breath. The patient has not experienced similar symptoms in the past. The patient has not recently seen a physician. Historical: - Allergies: 15:55 Augmentin; ll1 15:55 Lortab; ll1 - Home Meds: 15:55 glyburide 5 mg Oral tab 1 tab 2 times per day [Active]; ll1 - PMHx: 15:55 Atrial Fib; melanoma; Diabetes - NIDDM; Hypertension; ll1 - PSHx: 15:55 melanoma's removed; ll1 - Immunization history:: Flu vaccine is not up to date. Client reports having NOT received the Covid vaccine. - Social history:: Smoking status: Patient reports the use of cigarette tobacco products, smokes one pack cigarettes per day. ROS: 18:35 Eyes: Negative for injury, pain, redness, and discharge, ENT: Negative for injury, jr8 pain, and discharge, Neck: Negative for injury, pain, and swelling, Cardiovascular: Negative for chest pain, palpitations, and edema, Abdomen/GI: Negative for abdominal pain, nausea, vomiting, diarrhea, and constipation, Back: Negative for injury and pain, MS/Extremity: Negative for injury and deformity, Skin: Negative for injury, rash, and discoloration, Neuro: Negative for headache, weakness, numbness, tingling, and seizure. 18:35 Respiratory: Positive for cough, shortness of breath, wheezing. Exam: 18:35 Constitutional: This is a well developed, well nourished patient who is awake, alert, jr8 and in no acute distress. ENT: Nares patent. No nasal discharge, no septal abnormalities noted. Tympanic membranes are normal and external auditory canals are clear. Oropharynx with no redness, swelling, or masses, exudates, or evidence of obstruction, uvula midline. Mucous membranes moist. Cardiovascular: Regular rate and rhythm with a normal S1 and S2. No gallops, murmurs, or rubs. Normal PMI, no JVD. No pulse deficits. Abdomen/GI: Soft, non-tender, with normal bowel sounds. No distension or tympany. No guarding or rebound. No evidence of tenderness throughout. Back: No spinal tenderness. No costovertebral tenderness. Full range of motion. Skin: Warm, dry with normal turgor. Normal color with no rashes, no lesions, and no evidence of cellulitis. MS/ Extremity: Pulses equal, no cyanosis. Neurovascular intact. Full, normal range of motion. Neuro: Awake and alert, GCS 15, oriented to person, place, time, and situation. Cranial nerves II-XII grossly intact. Motor strength 5/5 in all extremities. Sensory grossly intact. Cerebellar exam normal. Normal gait. 18:35 Respiratory: the patient does not display signs of respiratory distress, Respirations: normal, Breath sounds: rhonchi, that are mild, are heard diffusely, wheezing: expiratory that is mild, is heard diffusely. Vital Signs: 15:51 BP 169 / 88; Pulse 82; Resp 18; Temp 98.5; Pulse Ox 95% on R/A; Weight 89.81 kg; Height ll1 5 ft. 5 in. (165.10 cm); Pain 2/10; 19:23 BP 156 / 80; Pulse 74; Resp 16; Pulse Ox 98% on R/A; ak2 20:28 BP 142 / 75; Pulse 71; Resp 18; Pulse Ox 100% on R/A; ak2 15:51 Body Mass Index 32.95 (89.81 kg, 165.10 cm) ll1 MDM: 17:32 Patient medically screened. jr8 19:03 Data reviewed: vital signs, nurses notes, lab test result(s), radiologic studies, plain jr8 films. Data interpreted: Pulse oximetry: on room air is 95 %. Interpretation: normal. Counseling: I had a detailed discussion with the patient and/or guardian regarding: the historical points, exam findings, and any diagnostic results supporting the discharge/admit diagnosis, lab results, radiology results, the need for outpatient follow up, a family practitioner, to return to the emergency department if symptoms worsen or persist or if there are any questions or concerns that arise at home. 01/09 17:39 Order name: XRAY Chest Pa And Lat (2 Views); Complete Time: 18:36 jr8 Administered Medications: 18:33 Not Given (Patient Refused): Albuterol - atroVENT (ipratropium) (3:1) (2.5 mg - 0.5 mg) jd3 3 ml Nebulizer once 18:38 Drug: Xopenex (levalbuterol) (3) 1.25 mg Route: Inhalation; jd3 Disposition Summary: 01/09/21 20:12 Discharge Ordered Location: Home jr8 Problem: new jr8 Symptoms: have improved jr8 Condition: Stable jr8 Diagnosis - Acute bronchitis, unspecified jr8 Followup: jr8 - With: Private Physician - When: 5 - 6 days - Reason: Recheck today's complaints, Continuance of care, Re-evaluation by your physician Discharge Instructions: - Discharge Summary Sheet jr8 - Acute Bronchitis, Adult jr8 Forms: - Medication Reconciliation Form jr8 - Thank You Letter jr8 - Antibiotic Education jr8 - Prescription Opioid Use jr8 Prescriptions: - Xopenex HFA 45 mcg/actuation Inhalation HFA aerosol inhaler - inhale 2 puff by INHALATION route every 4-6 hours; 1 Inhaler; Refills: 0, jr8 Product Selection Permitted - levofloxacin 500 mg Oral tablet - take 1 tablet by ORAL route once daily for 7 days; 7 tablet; Refills: 0, jr8 Product Selection Permitted Addendum: 01/12/2021 13:31 Co-signature as Attending Physician, Kevan Santizo MD I agree with the assessment and [facility] plan of care. Signatures: Dispatcher [employer] EDAZ Kevan Santizo MD MD [facility] Andre Castorena PA PA jr8 Arpan Mendoza RN RN jd3 Chapito Aburto RN RN ll1 Corrections: (The following items were deleted from the chart) 01/09 19:38 18:14 CORONAVIRUS+MR.LAB.BRZ ordered. EDMS EDMS
--- NOTE | 2021-01-09 20:13 | ER ---
Nurse's Notes [facility] Name: Dimple Cisneros Age: 65 yrs Sex: Female : 1955 Arrival Date: 01/09/2021 Time: 15:38 Bed 18 Private MD: Diagnosis: Acute bronchitis, unspecified Presentation: 01/09 15:51 Chief complaint: Patient states: Fighting a "cold" since Tuesday. Started to feel better ll1 yesterday. Started with SOB, cough, congestion today that was worse than the cold. No fever. Coronavirus screen: Client denies travel out of the [place] in the last 14 days. congestion, cough unrelated to allergies, difficulty breathing, fatigue, headache, sore throat, Client presents with at least one sign or symptom that may indicate coronavirus-19. Standard/surgical mask placed on the client. Ebola Screen: Patient denies travel to an Ebola-affected area in the 21 days before illness onset. Initial Sepsis Screen: Does the patient meet any 2 criteria? No. Patient's initial sepsis screen is negative. Does the patient have a suspected source of infection? Yes:. Risk Assessment: Do you want to hurt yourself or someone else? Patient reports no desire to harm self or others. Onset of symptoms was January 05, 2021. 15:51 Method Of Arrival: Ambulatory ll1 15:51 Acuity: GERBER 3 ll1 Historical: - Allergies: 15:55 Augmentin; ll1 15:55 Lortab; ll1 - Home Meds: 15:55 glyburide 5 mg Oral tab 1 tab 2 times per day [Active]; ll1 - PMHx: 15:55 Atrial Fib; melanoma; Diabetes - NIDDM; Hypertension; ll1 - PSHx: 15:55 melanoma's removed; ll1 - Immunization history:: Flu vaccine is not up to date. Client reports having NOT received the Covid vaccine. - Social history:: Smoking status: Patient reports the use of cigarette tobacco products, smokes one pack cigarettes per day. Screenin:44 Abuse screen: Denies threats or abuse. Nutritional screening: No deficits noted. jd3 Tuberculosis screening: No symptoms or risk factors identified. Fall Risk Ambulatory Aid- None/Bed Rest/Nurse Assist (0 pts). Gait- Normal/Bed Rest/Wheelchair (0 pts) Mental Status- Oriented to own ability (0 pts). Total Patrick Fall Scale indicates No Risk (0-24 pts). Assessment: 18:42 General: Appears in no apparent distress. comfortable, Behavior is calm, cooperative, jd3 appropriate for age. Pain: Denies pain. Neuro: Level of Consciousness is awake, alert, obeys commands, Oriented to person, place, time, situation. Cardiovascular: Denies chest pain, Capillary refill < 3 seconds Patient's skin is warm and dry. Respiratory: Reports cough that is productive, persistent Airway is patent Respiratory effort is even, unlabored, Respiratory pattern is regular, symmetrical. GI: No signs and/or symptoms were reported involving the gastrointestinal system. : No signs and/or symptoms were reported regarding the genitourinary system. EENT: No signs and/or symptoms were reported regarding the EENT system. Derm: Skin is intact, Skin is dry, Skin is normal, Skin temperature is warm. Musculoskeletal: Circulation, motion, and sensation intact. Range of motion: intact in all extremities. 19:22 Reassessment: Patient and/or family updated on plan of care and expected duration. Pain ak2 level reassessed. Vital Signs: 15:51 BP 169 / 88; Pulse 82; Resp 18; Temp 98.5; Pulse Ox 95% on R/A; Weight 89.81 kg; Height ll1 5 ft. 5 in. (165.10 cm); Pain 2/10; 19:23 BP 156 / 80; Pulse 74; Resp 16; Pulse Ox 98% on R/A; ak2 20:28 BP 142 / 75; Pulse 71; Resp 18; Pulse Ox 100% on R/A; ak2 15:51 Body Mass Index 32.95 (89.81 kg, 165.10 cm) ll1 ED Course: 15:38 Patient arrived in ED. mr 15:54 Triage completed. ll1 15:54 Arm band placed on. ll1 17:10 Patient placed in an exam room, on a stretcher. ll1 17:16 Andre Castorena PA is PHCP. jr8 17:16 Kevan Santizo MD is Attending Physician. jr8 17:59 Arpan Mendoza RN is Primary Nurse. jd3 18:19 XRAY Chest Pa And Lat (2 Views) In Process Unspecified. EDMS 18:44 Patient has correct armband on for positive identification. Bed in low position. Call j light in reach. Side rails up X 1. Pulse ox on. NIBP on. 20:28 No provider procedures requiring assistance completed. Patient did not have IV access ak2 during this emergency room visit. Administered Medications: 18:33 Not Given (Patient Refused): Albuterol - atroVENT (ipratropium) (3:1) (2.5 mg - 0.5 mg) jd3 3 ml Nebulizer once 18:38 Drug: Xopenex (levalbuterol) (3) 1.25 mg Route: Inhalation; j Outcome: 20:12 Discharge ordered by . maryam 20:28 Discharged to home ambulatory. ak2 20:28 Condition: good 20:28 Discharge instructions given to patient, Prescriptions given X 20:29 Patient left the ED. ak2 Signatures: Dispatcher [employer] EDSC AugustoTerrie mr Andre Castorena, Arpan Black RN RN jChapito Keen RN RN ll1 Mike Oconnor ak2 Corrections: (The following items were deleted from the chart) 19:38 18:38 CORONAVIRUS+MR.LAB.IZZY drawn and sent. [facility] EDSC
[2021-01-09 21:09] VITALS: TEMP 98.5
[2021-01-09 21:12] VITALS: BP 142/75; O2SAT 100
== END 2021-01-09 20:29 | disposition home or self-care (01) ==
LOC: ER 15:33
DX: J20.9 Acute bronchitis, unspecified (principal); F17.210 Nicotine dependence, cigarettes, uncomplicated; I10 Essential (primary) hypertension; Z88.1 Allergy status to other antibiotic agents; Z88.6 Allergy status to analgesic agent; Z20.822 Contact with and (suspected) exposure to COVID-19
CPT/HCPCS: 71046; 99284; U0003

== ENCOUNTER 2021-08-17 22:10 | Observation (INO) | payer OTHER ==
[2021-08-17] MEDS ORDERED: DIAZEPAM 5 MG TABLET ONE (23:58)
[2021-08-17] MEDS ORDERED: MORPHINE 2 MG/ML SYR ONE (23:58)
[2021-08-17] MEDS ORDERED: dexAMETHasone 10 MG/ML VIAL ONE (23:59)
[2021-08-17] MEDS ORDERED: ONDANSETRON 4 MG/2 ML VIAL ONE (23:59)
[2021-08-18 00:40] LABS: Hematocrit 44.2 % (36.0-45.0); Lymphocytes % 40.9 % (15.3-44.8); MPV 10.5 fL (7.6-11.3); RBC Red Blood Cell Count 4.77 M/uL (3.86-4.86)
[2021-08-18 00:41] LABS: Protime INR 1.36
[2021-08-18 00:58] LABS: ALT/SGPT 32 U/L (12-78); AST/SGOT 15 U/L (15-37); Alkaline Phosphatase 70 U/L (45-117); BUN Blood Urea Nitrogen 14 mg/dL (7-18); Bicarbonate 25 mmol/L (21-32); Bilirubin Direct < 0.1 mg/dL (0-0.2); Bilirubin Total 0.4 mg/dL (0.2-1.0); Glucose Level 201 mg/dL (74-106); NT PRO-BNP 1814 pg/mL (<125); Potassium 3.6 mmol/L (3.5-5.1); Protein, Total 7.7 g/dL (6.4-8.2); Sodium Level 137 mmol/L (136-145)
[2021-08-18] MEDS ORDERED: FAMOTIDINE 20 MG/2 ML VIAL IV ONE (01:33)
[2021-08-18] MEDS ORDERED: CLOPIDOGREL 75 MG TABLET ONE (01:33)
--- NOTE | 2021-08-18 01:41 | EDPHYS ---
Physician Documentation [facility] Name: Dimple Cisneros Age: 66 yrs Sex: Female : 1955 Arrival Date: 08/17/2021 Time: 22:20 Bed 7 Private MD: Hilario Dooley E ED Physician aMrio Montes HPI: 08/17 23:43 This 66 yrs old Female presents to ER via Ambulatory with complaints of Hip antonio Pain. 23:43 The patient or guardian reports decreased range of motion, pain. that occurred at an [facility] unknown site, sustained from unknown reason, There is no obvious deformity, The patient is able to self ambulate. The patient is able to bear their full body weight. The patient's discomfort radiates to the left leg. The complaints affect the left hip, lateral aspect of left thigh, lateral aspect of left knee and lateral aspect of left calf. Onset: The symptoms/episode began/occurred 3 day(s) ago. Modifying factors: The symptoms are alleviated by nothing, the symptoms are aggravated by any movement. Associated signs and symptoms: Pertinent negatives: abdominal pain, chest pain, diarrhea, dizziness, dysuria, fever, incontinence, nausea, shortness of breath, weakness. Severity of symptoms: At their worst the symptoms were moderate, in the emergency department the symptoms have improved, mildly. The patient has not experienced similar symptoms in the past. Historical: - Allergies: 22:32 Augmentin; tw5 22:32 Lortab; tw5 - Home Meds: 22:32 alprazolam 1 mg Oral tab 1 tab BID for Anxiety [Active]; digoxin 125 mcg Oral tab 1 tab tw5 once daily [Active]; folic acid 400 mcg Oral tab 1 tab once daily [Active]; Eliquis 5 mg oral tab 1 tab 2 times per day [Active]; glipizide 10 mg oral tab 1 tab 2 times per day [Active]; - PMHx: 22:32 Atrial Fib; Diabetes - NIDDM; Hypertension; melanoma; tw5 - PSHx: 22:32 melanoma's removed; tw5 - Immunization history:: Flu vaccine is not up to date. - Social history:: Smoking status: Patient reports the use of cigarette tobacco products, smokes one pack cigarettes per day. - Family history:: not pertinent. ROS: 23:43 Constitutional: Negative for fever, chills, and weight loss, Eyes: Negative for injury, antonio pain, redness, and discharge, ENT: Negative for injury, pain, and discharge, Neck: Negative for injury, pain, and swelling, Cardiovascular: Negative for chest pain, palpitations, and edema, Respiratory: Negative for shortness of breath, cough, wheezing, and pleuritic chest pain, Abdomen/GI: Negative for abdominal pain, nausea, vomiting, diarrhea, and constipation, Back: Negative for injury and pain, : Negative for injury, bleeding, discharge, and swelling, Skin: Negative for injury, rash, and discoloration, Neuro: Negative for headache, weakness, numbness, tingling, and seizure, Psych: Negative for depression, anxiety, suicide ideation, homicidal ideation, and hallucinations, Allergy/Immunology: Negative for hives, rash, and allergies, Endocrine: Negative for neck swelling, polydipsia, polyuria, polyphagia, and marked weight changes, Hematologic/Lymphatic: Negative for swollen nodes, abnormal bleeding, and unusual bruising. 23:43 MS/extremity: Positive for decreased range of motion, pain, of the left hip, lateral aspect of left thigh and lateral aspect of left knee. Exam: 23:43 Constitutional: This is a well developed, well nourished patient who is awake, alert, antonio and in no acute distress. Head/Face: Normocephalic, atraumatic. Eyes: Pupils equal round and reactive to light, extra-ocular motions intact. Lids and lashes normal. Conjunctiva and sclera are non-icteric and not injected. Cornea within normal limits. Periorbital areas with no swelling, redness, or edema. ENT: Nares patent. No nasal discharge, no septal abnormalities noted. Tympanic membranes are normal and external auditory canals are clear. Oropharynx with no redness, swelling, or masses, exudates, or evidence of obstruction, uvula midline. Mucous membranes moist. Neck: Trachea midline, no thyromegaly or masses palpated, and no cervical lymphadenopathy. Supple, full range of motion without nuchal rigidity, or vertebral point tenderness. No Meningismus. Chest/axilla: Normal chest wall appearance and motion. Nontender with no deformity. No lesions are appreciated. Cardiovascular: Regular rate and rhythm with a normal S1 and S2. No gallops, murmurs, or rubs. Normal PMI, no JVD. No pulse deficits. Respiratory: Lungs have equal breath sounds bilaterally, clear to auscultation and percussion. No rales, rhonchi or wheezes noted. No increased work of breathing, no retractions or nasal flaring. Abdomen/GI: Soft, non-tender, with normal bowel sounds. No distension or tympany. No guarding or rebound. No evidence of tenderness throughout. Back: No spinal tenderness. No costovertebral tenderness. Full range of motion. Female : Normal external genitalia. Skin: Warm, dry with normal turgor. Normal color with no rashes, no lesions, and no evidence of cellulitis. Neuro: Awake and alert, GCS 15, oriented to person, place, time, and situation. Cranial nerves II-XII grossly intact. Motor strength 5/5 in all extremities. Sensory grossly intact. Cerebellar exam normal. Normal gait. Psych: Awake, alert, with orientation to person, place and time. Behavior, mood, and affect are within normal limits. 23:43 Musculoskeletal/extremity: ROM: full active range of motion, full passive range of motion, limited active range of motion due to pain, Pulses: noted to be 1+ in the left posterior tibial artery and left dorsalis pedis artery, Sensation intact. Compartment Syndrome exam of affected extremity: is normal. DVT Exam: no swelling, negative Homans' sign noted on exam, no appreciated bluish discoloration, no erythema, no increased warmth, pain, tenderness. 08/18 01:40 ECG was reviewed by the Attending Physician. [facility] Vital Signs: 08/17 22:29 BP 168 / 58; Pulse 103; Resp 18; Temp 98.5(O); Pulse Ox 96% on R/A; Weight 108.86 kg; tw5 Height 5 ft. 5 in. (165.10 cm); Pain 10/10; 23:00 BP 127 / 68; Pulse 90; Resp 18 S; Pulse Ox 96% on R/A; as6 08 00:00 BP 152 / 69; Pulse 95; Resp 18 S; Pulse Ox 96% on R/A; as6 00:30 BP 136 / 87; Pulse 92; Resp 18 S; Pulse Ox 95% on R/A; as6 02:00 BP 149 / 77; Pulse 72; Resp 18 S; Pulse Ox 95% on R/A; as6 08/17 22:29 Body Mass Index 39.94 (108.86 kg, 165.10 cm) tw5 MDM: 08/17 23:00 Patient medically screened. [facility] 23:53 Differential diagnosis: bursitis, arthritis, strain. Data reviewed: vital signs, EMS antonio record, lab test result(s), EKG, radiologic studies, CT scan, plain films. Data interpreted: classroom monitor: rate is 108 beats/min, rhythm is regular, Pulse oximetry: on room air is 96 %. Test interpretation: by ED physician or midlevel provider: ECG, plain radiologic studies. Counseling: I had a detailed discussion with the patient and/or guardian regarding: the historical points, exam findings, and any diagnostic results supporting the discharge/admit diagnosis, lab results, radiology results, the need for outpatient follow up, for definitive care, a family practitioner, a neurologist, a orthopedic surgeon. 08/17 23:43 Order name: Basic Metabolic Panel [facility] 08/17 23:43 Order name: CBC with Diff; Complete Time: 01:10 [facility] 08/17 23:43 Order name: LFT's [facility] 08/17 23:43 Order name: Magnesium [facility] 08/17 23:43 Order name: NT PRO-BNP [facility] 08/17 23:43 Order name: PT-INR; Complete Time: 01:10 [facility] 08/17 23:43 Order name: Troponin HS [facility] 08/17 23:43 Order name: Digoxin [facility] 08/17 23:44 Order name: Basic Metabolic Panel [facility] 08/18 01:15 Order name: SARS-COV-2 RT PCR (Document "Date of Onset" if Symptomatic) [facility] 08/18 05:53 Order name: Comprehensive Metabolic Panel [facility] 08/18 05:53 Order name: Phosphorus [facility] 08/18 05:53 Order name: Troponin High Sensitivity [facility] 08/18 05:53 Order name: Lipid Profile [facility] 08/17 23:43 Order name: XRAY Chest (1 view) [facility] 08/17 23:43 Order name: CT Pelvis wo Cont: include hips [facility] 08/17 23:43 Order name: CT Lumbar Spine Wo Con [facility] 08/17 23:43 Order name: US LE Artery Uni Ltd [facility] 08/17 23:43 Order name: US Extremity Venous Unilateral Ltd [facility] 08/17 23:43 Order name: Femur Left XRAY [facility] 08/18 05:53 Order name: T4 Free [facility] 08/18 05:53 Order name: Thyroid Stimulating Hormone [facility] 08/18 06:05 Order name: Hemoglobin A1c [facility] 08/18 08:54 Order name: Glucose, Ancillary Testing [facility] 08/18 10:37 Order name: Troponin High Sensitivity [facility] 08/18 12:15 Order name: Magnesium [facility] 08/17 23:43 Order name: EKG; Complete Time: 23:44 [facility] 08/17 23:43 Order name: Cardiac monitoring; Complete Time: 01:03 [facility] 08/17 23:43 Order name: EKG - Nurse/Tech; Complete Time: 01:10 [facility] 08/17 23:43 Order name: IV Saline Lock; Complete Time: 00:11 [facility] 08/17 23:43 Order name: Labs collected and sent; Complete Time: 00:11 [facility] 08/17 23:43 Order name: O2 Per Protocol; Complete Time: 00:11 [facility] 08/17 23:43 Order name: O2 Sat Monitoring; Complete Time: 00:11 [facility] 08/18 02:48 Order name: CONS Physician Consult [facility] EC/08 01:40 Rate is 89 beats/min. Rhythm is irregularly irregular. QRS [place] is Normal. ID interval antonio is normal. QRS interval is normal. QT interval is normal. No Q waves. T waves are Inverted in leads I, II, aVL, aVF, V4, V5, V6. No ST changes noted. Clinical impression: NSR w/ Non-specific ST/T Changes and No evidence of ischemia. Interpreted by me. Reviewed by me. Administered Medications: 00:11 Drug: Decadron - Dexamethasone 10 mg Route: IVP; Site: right forearm; as6 00:26 Not Given (Patient Refused): Valium (diazepam) 5 mg PO once as6 00:27 Not Given (Patient Refused): morphine 2 mg IVP once; (PAIN>8) RASS on ADMN: Combtv4, as6 Very Agttd3, Agttd2, Rstlss1, AlertClm0, Drwsy-1, LtSdtn-2, ModSdtn-3, DpSdtn-4, UnArsble-5 x2 00:27 Not Given (Patient Refused): Zofran (Ondansetron) 4 mg IVP once; over 2 minutes as6 01:38 Drug: PlaVIX (clopidogrel) 300 mg Route: PO; al4 02:10 Follow up: Response: No adverse reaction al4 01:38 Drug: Pepcid (famotidine) 20 mg Route: IVP; Site: right forearm; al4 02:10 Follow up: Response: No adverse reaction al4 02:16 Not Given (Patient Refused): Lopressor (metoprolol TARTRATE) 50 mg PO once as6 Disposition Summary: 08/18/21 01:40 Hospitalization Ordered Hospitalization Status: Inpatient Admission antonio Provider: Jody Lombardo cha Condition: Fair(08/18/21 01:40) antonio Problem: new(08/18/21 01:40) antonio Symptoms: have improved(08/18/21 01:40) antonio Bed/Room Type: Standard antonio Location: [facility] ER HOLD(08/18/21 02:55) cg Room Assignment: ERHOLD-(08/18/21 02:55) cg Diagnosis - Non ST elevation [place] antonio - Chronic atrial fibrillation antonio - Peripheral vascular disease, unspecified antonio - Type 2 diabetes mellitus with hyperglycemia(08/18/21 01:40) antonio - Essential (primary) hypertension antonio - Cardiomegaly antonio Forms: - Medication Reconciliation Form antonio - SBAR form antonio Signatures: Dispatcher [employer] EDMario Wright MD MD cha Page, Corey, PA PA cp Garcia, Cindy, RN RN Annabella Nielson tw5 Cory Caballero RN RN as6 Pawel Charles al4 Corrections: (The following items were deleted from the chart) 01:25 01:25 Home antonio antonio : 01:25 new antonio antonio : 01:25 have improved antonio antonio : 01:25 Stable antonio antonio : 01:25 Sciatica, left side antonio antonio : 01:25 Pain in left hip antonio antonio : 01:25 Type 2 diabetes mellitus with hyperglycemia antonio antonio 01:25 Tobacco abuse counseling antonio antonio 01:25 Tobacco use antonio antonio 02:55 01:40 Intensive Care Unit antonio cg 02:55 01:40 antonio cg
--- NOTE | 2021-08-18 01:41 | ER ---
Nurse's Notes [facility] Name: Dimple Cisneros Age: 66 yrs Sex: Female : 1955 Arrival Date: 08/17/2021 Time: 22:20 Bed 7 Private MD: Hilario Dooley E Diagnosis: Non ST elevation [place];Chronic atrial fibrillation;Peripheral vascular disease, unspecified;Type 2 diabetes mellitus with hyperglycemia;Essential (primary) hypertension;Cardiomegaly Presentation: 08/17 22:29 Chief complaint: Patient states: " My left leg, I dont know if it a pinched nerve, but tw5 whatever it is about to kill me. It started off as a slight pain, but over the past ten days it is getting worse. Now the pain is traveling down my leg and I feel it in my groin.". Chief complaint:. Coronavirus screen: Vaccine status: Patient reports being unvaccinated. Ebola Screen: Patient negative for fever greater than or equal to 101.5 degrees Fahrenheit, and additional compatible Ebola Virus Disease symptoms Patient denies exposure to infectious person. Patient denies travel to an Ebola-affected area in the 21 days before illness onset. Initial Sepsis Screen: Does the patient meet any 2 criteria? HR > 90 bpm. Does the patient have a suspected source of infection? No. Patient's initial sepsis screen is negative. Risk Assessment: Do you want to hurt yourself or someone else? Patient reports no desire to harm self or others. Onset of symptoms is unknown. 22:29 Method Of Arrival: Ambulatory tw5 22:29 Acuity: GERBER 4 tw5 Triage Assessment: 22:32 General: Appears uncomfortable, Behavior is calm, cooperative, agitated. Pain: tw5 Complains of pain in left leg Pain currently is 5 out of 10 on a pain scale. at worst was 10 out of 10 on a pain scale. Historical: - Allergies: 22:32 Augmentin; tw5 22:32 Lortab; tw5 - Home Meds: 22:32 alprazolam 1 mg Oral tab 1 tab BID for Anxiety [Active]; digoxin 125 mcg Oral tab 1 tab tw5 once daily [Active]; folic acid 400 mcg Oral tab 1 tab once daily [Active]; Eliquis 5 mg oral tab 1 tab 2 times per day [Active]; glipizide 10 mg oral tab 1 tab 2 times per day [Active]; - PMHx: 22:32 Atrial Fib; Diabetes - NIDDM; Hypertension; melanoma; tw5 - PSHx: 22:32 melanoma's removed; tw5 - Immunization history:: Flu vaccine is not up to date. - Social history:: Smoking status: Patient reports the use of cigarette tobacco products, smokes one pack cigarettes per day. - Family history:: not pertinent. Screenin:03 Abuse screen: Denies threats or abuse. Denies injuries from another. Nutritional as6 screening: No deficits noted. Tuberculosis screening: No symptoms or risk factors identified. Fall Risk None identified. Assessment: 22:55 General: Appears uncomfortable, Behavior is calm, cooperative. Pain: Complains of pain as6 in left leg. Neuro: Level of Consciousness is awake, alert, obeys commands, Oriented to person, place, time, situation. Cardiovascular: Capillary refill < 3 seconds Patient's skin is warm and dry. Respiratory: Airway is patent Trachea midline Respiratory effort is even, unlabored, Respiratory pattern is regular, symmetrical. Musculoskeletal: Reports pain in left leg. Vital Signs: 22:29 BP 168 / 58; Pulse 103; Resp 18; Temp 98.5(O); Pulse Ox 96% on R/A; Weight 108.86 kg; tw5 Height 5 ft. 5 in. (165.10 cm); Pain 10/10; 23:00 BP 127 / 68; Pulse 90; Resp 18 S; Pulse Ox 96% on R/A; as6 0208 00:00 BP 152 / 69; Pulse 95; Resp 18 S; Pulse Ox 96% on R/A; as6 00:30 BP 136 / 87; Pulse 92; Resp 18 S; Pulse Ox 95% on R/A; as6 02:00 BP 149 / 77; Pulse 72; Resp 18 S; Pulse Ox 95% on R/A; as6 08/17 22:29 Body Mass Index 39.94 (108.86 kg, 165.10 cm) tw5 ED Course: 08/17 22:20 Patient arrived in ED. es 22:21 Hilario Dooley MD is Private Physician. es 22:32 Triage completed. tw5 22:32 Arm band placed on right wrist. tw5 22:37 Cory Caballero, ADI is Primary Nurse. as6 23:00 Mario Montes MD is Attending Physician. antonio 23:03 Bed in low position. Call light in reach. Pulse ox on. NIBP on. as6 23:20 Inserted saline lock: 18 gauge in right forearm, using aseptic technique. Blood as6 collected. 02/08 00:14 XRAY Chest (1 view) In Process Unspecified. EDMS 00:14 Femur Left XRAY In Process Unspecified. EDMS 00:38 US LE Artery Uni Ltd In Process Unspecified. EDMS 00:38 US Extremity Venous Unilateral Ltd In Process Unspecified. EDMS 01:09 Notified ED physician of a critical lab result(s). Troponin 945.5. tw5 01:10 EKG done, by ED staff, reviewed by Mario Montes MD. lt3 01:16 CT Pelvis wo Cont: include hips In Process Unspecified. EDMS 01:16 CT Lumbar Spine Wo Con In Process Unspecified. EDMS 01:25 Hilario Dooley MD is Referral Physician. antonio 01:25 Carlos Allen MD is Referral Physician. antonio 01:25 Amor Phelps MD is Referral Physician. antonio 01:36 Jody Lombardo MD is Hospitalizing Provider. antonio 04:28 No provider procedures requiring assistance completed. Patient admitted, IV remains in as6 place. 07:47 Primary Nurse role handed off by Cory Caballero RN bd Administered Medications: 00:11 Drug: Decadron - Dexamethasone 10 mg Route: IVP; Site: right forearm; as6 00:26 Not Given (Patient Refused): Valium (diazepam) 5 mg PO once as6 00:27 Not Given (Patient Refused): morphine 2 mg IVP once; (PAIN>8) RASS on ADMN: Combtv4, as6 Very Agttd3, Agttd2, Rstlss1, AlertClm0, Drwsy-1, LtSdtn-2, ModSdtn-3, DpSdtn-4, UnArsble-5 x2 00:27 Not Given (Patient Refused): Zofran (Ondansetron) 4 mg IVP once; over 2 minutes as6 01:38 Drug: PlaVIX (clopidogrel) 300 mg Route: PO; al4 02:10 Follow up: Response: No adverse reaction al4 01:38 Drug: Pepcid (famotidine) 20 mg Route: IVP; Site: right forearm; al4 02:10 Follow up: Response: No adverse reaction al4 02:16 Not Given (Patient Refused): Lopressor (metoprolol TARTRATE) 50 mg PO once as6 Outcome: 01:25 Discharge ordered by . antonio 01:40 Decision to Hospitalize by Provider. antonio 04:29 Admitted to ER Hold. Please see [facility] for further documentation. as6 04:29 Condition: stable 04:29 Instructed on the need for admit. 13:55 Patient left the ED. ph Signatures: Dispatcher [employer] EDMS Kaley Tomlin Corey, MD MD cha Salyer, Lorena Rothman RN RN [facility] Hospital[facility] Ashby, RN RN as6 Pawel Charles4 Nita Iniguez 3
[2021-08-18] MEDS ORDERED: METOPROLOL TAR 50 MG TAB ONE (02:09)
--- NOTE | 2021-08-18 03:06 | P.HP ---
Certification for Inpatient Patient admitted to: Observation With expected LOS: <2 Midnights Patient will require the following post-hospital care: None Practitioner: I am a practitioner with admitting privileges, knowledge of patient current condition, hospital course, and medical plan of care. Services: Services provided to patient in accordance with Admission requirements found in Title 42 Section 412.3 of the Code of Federal Regulations Patient History Date of Service: 08/18/21 Primary Care Provider: Joe Reason for admission: leg pain, elevated troponin History of Present Illness: Ms. Cisneros is a 66 yo F with chronic atrial fibrillation on eliquis, T2DM, and HTN who presents with 10 days of increasing left hip and leg pain. Pain is worse with ambulation and relieved with rest. She has been taking half tablet's of her 's tramadol at home. At bedside, she walks with a limp but still able to ambulate. Denies falls or recent injuries. Xrays and CTAP show no acute fractures. Doppler of her left leg shows monophasic flow. She smokes 1ppd. High sensitivity troponin elevated to 945.5. Patient reports 3 days of mild 'twinges' and 'stabbing' in her chest that are relieved when she massages her chest. She received plavix in the ED. She refused metoprolol. Glu 201 BNP 1814 Allergies acetaminophen [From Lortab] Allergy (Verified 07/29/18 02:37) Hives/Rash hydrocodone [From Lortab] Allergy (Verified 07/29/18 02:37) Hives/Rash amoxicillin [From Augmentin] Adverse Reaction (Verified 07/29/18 02:37) Hives/Rash clavulanic acid [From Augmentin] Adverse Reaction (Verified 07/29/18 02:37) Hives/Rash Home Medications: ALPRAZolam [Xanax*] 1 mg PO TID 07/24/15 Digoxin [Digitek] 125 mcg PO DAILY 07/24/15 Folic Acid/Vit B Complex and C [Balanced B-Complex Caplet] 400 mcg PO BEDTIME 07/24/15 Cholecalciferol (Vitamin D3) [Vitamin D 5,000 IU Cap*] 1 cap PO DAILY 07/29/18 glipiZIDE [Glipizide] 5 mg PO BID 02/28/20 Aspirin [Aspirin EC 81 MG] 81 mg PO DAILY #30 tablet. 02/29/20 Apixaban [Eliquis] 5 mg PO BID 30 Days #60 tablet 03/02/20 - Past Medical/Surgical History Diabetic: Yes -: Diabetes mellitus, diet controlled -: Lymphoma -: Metastatic melanoma -: Atrial fibrillation -: Depression -: Hyperlipidemia -: Tobacco abuse -: Mastoid Ear Surgery 1973 -: Hysterectomy 1978 -: Lymph node resection left arm -: Melanoma removal left arm -: tooth pick removal on left foot Psychosocial/ Personal History: The patient is . She has 6 children. - Family History Mother -: Lung disease, Cancer, Liver disease, Other (see notes) Notes: Liver Ca and Lung Ca Brother -: Cancer, Other (see notes) Notes: Cancer in the neck - Social History Smoking Status: Current every day smoker Alcohol use: No CD- Drugs: No Caffeine use: Yes Place of Residence: Home Review of Systems 10-point ROS is otherwise unremarkable General: Unremarkable Eyes: Unremarkable ENT: Unremarkable Respiratory: Unremarkable Cardiovascular: Chest Pain Gastrointestinal: Unremarkable Genitourinary: Unremarkable Musculoskeletal: Leg Pain Integumentary: Unremarkable Neurological: Unremarkable Lymphatics: Unremarkable Physical Examination - Physical Exam General: Alert, In no apparent distress HEENT: Atraumatic, PERRLA, Mucous membr. moist/pink, EOMI, Sclerae nonicteric Neck: Supple, 2+ carotid pulse no bruit, No LAD, Without JVD or thyroid abnormality Respiratory: Clear to auscultation bilaterally, Normal air movement Cardiovascular: No edema, Normal S1 S2, Irregular heart rate/rhythm Gastrointestinal: Normal bowel sounds, No tenderness Musculoskeletal: No tenderness, Other (full ROM and SALAS, no pain) Integumentary: No rashes Neurological: Normal speech, Normal strength at 5/5 x4 extr, Normal tone, Normal affect, Abnormal gait (antalgic gait) Lymphatics: No axilla or inguinal lymphadenopathy - Studies Laboratory Data (last 24 hrs) 08/18/21 00:06: PT 15.7 H, INR 1.36 08/18/21 00:06: WBC 7.30, Hgb 14.9, Hct 44.2, Plt Count 184 08/18/21 00:06: Sodium 137, Potassium 3.6, BUN 14, Creatinine 0.97, Glucose 201 H, Total Bilirubin 0.4, AST 15, ALT 32, Alkaline Phosphatase 70 Assessment and Plan - Problems (Diagnosis) (1) Leg pain Current Visit: Yes Status: Acute Qualifiers: Laterality: left Qualified Code(s): M79.605 - Pain in left leg (2) A-fib Onset Date: 09/01/16 Current Visit: No Status: Chronic Qualifiers: Atrial fibrillation type: unspecified Qualified Code(s): I48.91 - Unspecified atrial fibrillation (3) Chest pain Onset Date: 09/01/16 Current Visit: No Status: Acute Qualifiers: Chest pain type: unspecified Qualified Code(s): R07.9 - Chest pain, unspecified (4) Diabetes Current Visit: No Status: Chronic Qualifiers: Diabetes mellitus type: type 2 Diabetes mellitus termite renewal inspector insulin use: without senior living use Diabetes mellitus complication status: without complication Qualified Code(s): E11.9 - Type 2 diabetes mellitus without complications (5) Elevated troponin Onset Date: 07/31/18 Current Visit: No Status: Acute (6) Hyperlipidemia Onset Date: 07/31/18 Current Visit: No Status: Chronic Qualifiers: (7) Hypertension Onset Date: 07/31/18 Current Visit: No Status: Chronic Qualifiers: Hypertension type: primary hypertension Qualified Code(s): I10 - Essential (primary) hypertension (8) Tobacco abuse Current Visit: No Status: Chronic - Plan cardiology consulted trend troponin, repeat EKG lipid and thyroid levels pending reconcile and continue home medications A1c pending, sliding scale insulin PT consulted pain management as needed Discharge Plan: Home Plan to discharge in: 24 Hours - Advance Directives Does patient have a Living Will: No Does patient have a Durable POA for Healthcare: No - Code Status/Comfort Care Code Status Assessed: Yes (full code ) Critical Care: No Time Spent Managing Pts Care (In Minutes): 70
[2021-08-18] MEDS ORDERED: ONDANSETRON 4 MG/2 ML VIAL IV PRN (04:30)
[2021-08-18] MEDS ORDERED: TRAMADOL HCL 50 MG TAB PO PRN (04:30)
[2021-08-18] MEDS ORDERED: HYDRALAZINE HCL 20 MG/ML VIAL IV PRN (04:30)
[2021-08-18 05:49] LABS: Albumin 4.2 g/dL (3.4-5.0); Bilirubin Total 0.5 mg/dL (0.2-1.0); Phosphorus 3.8 mg/dL (2.5-4.9); Protein, Total 8.2 g/dL (6.4-8.2); Thyroid Stimulating Hormone 1.02 uIU/mL (0.360-3.740)
[2021-08-18 05:52] LABS: Troponin High Sensitivity 1009.7 pg/mL (<58.9)
[2021-08-18 06:00] LABS: Magnesium 1.9
[2021-08-18] MEDS ORDERED: INSULIN -REGULAR HUMAN 50 UNIT/0.5 ML ML SQ SCH (07:30)
--- NOTE | 2021-08-18 08:03 | RAD REPORT ---
EXAM DESCRIPTION: USExtremity Venous Uni Ltd08/18/2021 12:37 am CLINICAL HISTORY: left leg pain COMPARISON: None. FINDINGS: Left common femoral, superficial femoral, popliteal and posterior tibial veins are compre ssible and demonstrate augmentation. Doppler demonstrates good flow. Grayscale, color and spectral analysis performed on all vessels IMPRESSION: No evidence of deep venous thrombosis involving the left lower extremity.
--- NOTE | 2021-08-18 08:06 | RAD REPORT ---
EXAM DESCRIPTION: US - Lower Extremity Artery Uni Ltd - 08/18/2021 12:37 am CLINICAL HISTORY: Leg pain COMPARISON: None FINDINGS: The left common femoral, superficial femoral, popliteal, posterior tibial and dorsalis ped is arterial waveforms are monophasic. A high-grade stenosis is not seen. No occlusion. IMPRESSION: Diffuse abnormal waveforms throughout the arteries of the left lower extremity. This may indicate significant stenosis of left iliac artery.
--- NOTE | 2021-08-18 08:11 | RAD REPORT ---
EXAM DESCRIPTION: Tanya Single View08/18/2021 12:06 am CLINICAL HISTORY: Cough COMPARISON: 2019 FINDINGS: The lungs appear clear of acute infiltrate. The heart is moderately enlarged IMPRESSION: No acute abnormalities displayed
--- NOTE | 2021-08-18 08:14 | RAD REPORT ---
EXAM DESCRIPTION: RAD - Femur Left - 08/18/2021 12:06 am CLINICAL HISTORY: Left leg pain FINDINGS: No fracture or dislocation seen. No bony lesion visualized. Mild osteoarthritis left hip
[2021-08-18] MEDS ORDERED: APIXABAN 5 MG TABLET ONE (08:37)
[2021-08-18] MEDS ORDERED: TRAMADOL HCL 50 MG TAB ONE (08:37)
[2021-08-18] MEDS ORDERED: INSULIN -REGULAR HUMAN 50 UNIT/0.5 ML ML ONE (08:58)
--- NOTE | 2021-08-18 08:58 | EKG ---
Test Date: 2021-08-18 Test Time: 01:06:01 Director Of Events: JOAN MEASUREMENT RESULTS: Intervals: Rate: 89 NC: QRSD: 82 QT: 350 QTc: 425 [place]: P: NC: QRS: 48 T: 175 INTERPRETIVE STATEMENTS: Atrial fibrillation Septal infarct, age undetermined ST & T wave abnormality, consider lateral ischemia Abnormal ECG Compared to ECG 03/01/2020 11:08:13 Ventricular premature complex(es) no longer present Left ventricular hypertrophy no longer present Myocardial infarct finding still present ST (T wave) deviation still present Possible ischemia still present Electronically Signed On 08-18-21 08:57:18 HOTEL SUPERINTENDENT by Anthony Jean
[2021-08-18] MEDS ORDERED: APIXABAN 5 MG TABLET PO SCH (09:00)
[2021-08-18 10:04] VITALS: BMI 39.9
--- NOTE | 2021-08-18 11:34 | CON ---
Date of Consultation: 08/18/2021 Reason For Consultation: Elevated troponin. History Of Present Illness: Ms. Cisneros is 66. Has a history of hypertension, diabetes, melanoma, and paroxysmal atrial fibrillation. Has had negative stress test in the past in 2019, which was normal. Has had normal echocardiograms in the past. Came in with leg pain over the left side over the anter ior portion of her legs with rest and for some reason troponin withdrawn and was elevated. She also has severe dyslipidemia, but she is intolerant to statin. Denied chest pain, nausea, vomiting, diaph oresis, PND, orthopnea, pedal edema, palpitations, or syncope. Denied fever or chills. Past Medical History: As stated above. Allergies: SHE IS ALLERGIC TO AUGMENTIN, TYLENOL, AND HYDROCODONE. Review of Systems: Negative. Social History: Negative. Family History: Negative. Medications: At home include Xanax, Eliquis, aspirin, digoxin, and glimepiride. Physical Examination: General: She weighed 235 pounds. She is asymptomatic. No acute distress. Vital Signs: Stable, afebrile, sinus rhythm. HEENT: Negative. Neck: Supple with no bruit. Chest: Clear. Cardiac: Revealed regular rhythm and rate. No murmurs, gallops, or rubs. Abdomen: Benign. Extremities: Revealed no clubbing, cyanosis, or edema. She has good pulses distally. Neurologic: She was not focal. Skin: Dry and intact. Impression And Plan: Elevated troponin. No clinical significance. The patient is completely asympt omatic cardiac-winters. This is probably secondary to her chronic atrial fibrillation. No need for int ervention and I will make arrangements for her to have another stress test sometime down the road. S he has atrial fibrillation that is controlled. She is on Eliquis. She has anxiety, on Xanax; diabet es, well controlled; hypertension, well controlled. Her leg pain is definitely not circulation relat ed. I think this is related to sciatica. She has an arterial Doppler that is pending. I will see w hat that shows before making further decisions, but . She can go home whenever it is okay with Dr. Trejo and I will see her in the office soon. LUÍS/BREE Voice ID: [id number] Report ID: [id number]
[2021-08-18 12:14] LABS: Magnesium 1.8
--- NOTE | 2021-08-18 13:23 | P.DS ---
Admission Date: 08/18/21 Discharge Date: 08/18/21 Primary Care Provider: Joe Disposition: ROUTINE DISCHARGE Discharge Condition: FAIR Reason for Admission: leg pain, elevated troponin - Problems (1) Chronic anticoagulation Current Visit: Yes Status: Acute (2) Leg pain Current Visit: Yes Status: Acute Qualifiers: Laterality: left Qualified Code(s): M79.605 - Pain in left leg (3) Chest pain Onset Date: 09/01/16 Current Visit: No Status: Acute Qualifiers: Chest pain type: unspecified Qualified Code(s): R07.9 - Chest pain, unspecified (4) Chronic back pain Current Visit: No Status: Acute (5) Atrial fibrillation Onset Date: 07/31/18 Current Visit: No Status: Chronic Qualifiers: Atrial fibrillation type: chronic (6) Diabetes mellitus Onset Date: 07/31/18 Current Visit: No Status: Chronic Qualifiers: (7) Hyperlipidemia Onset Date: 07/31/18 Current Visit: No Status: Chronic Qualifiers: Brief History of Present Illness: Ms. Cisneros is a 66 yo F with chronic atrial fibrillation on eliquis, T2DM, and HTN who presents with 10 days of increasing left hip and leg pain. Pain is worse with ambulation and relieved with rest. She stated she walks with a limp but still able to ambulate. Denies falls or recent injuries. Xrays and CTAP show no acute fractures. Doppler of her left leg shows monophasic flow. She smokes 1ppd. High sensitivity troponin elevated to 945.5. Patient reported 3 days of mild 'twinges' and 'stabbing' in her chest that are relieved when she massages her chest. She received plavix in the ED. She refused metoprolol. Glu 201 BNP 1814. Patient placed in observation for further evaluation. Hospital Course: Troponin was elevated but trended flat. Patient seen in consultation by cardiology-Dr. Jean recommended no further intervention as an inpatient but to follow-up with him in the office for further evaluation for peripheral vascular disease. According to Dr. Jean have had a negative stress test recently. Patient is already on aspirin and Eliquis at home. Dr. Jean recommended addition of metoprolol and BRYON inhibitor. Patient refused metoprolol. Her lipid profile is elevated. Patient prescribed Lipitor. Currently asymptomatic, no chest pain or shortness of breath. Patient deemed stable for discharge per Dr. Jean. Vital Signs/Physical Exam: Temp Pulse Resp BP Pulse Ox 97.9 F 71 18 147/80 H 95 08/18/21 08:00 08/18/21 08:00 08/18/21 08:00 08/18/21 08:00 08/18/21 08:00 General: Alert, In no apparent distress, Oriented x3 HEENT: Mucous membr. moist/pink Respiratory: Clear to auscultation bilaterally, Normal air movement Cardiovascular: No edema, Regular rate/rhythm, Normal S1 S2 Gastrointestinal: Soft and benign, Non-distended Musculoskeletal: No swelling Integumentary: No rashes Neurological: Normal strength at 5/5 x4 extr, Cranial nerves 3-12 intact Laboratory Data at Discharge: WBC 7.30 K/uL (4.3-10.9) 08/18/21 00:06 Hgb 14.9 g/dL (12.0-15.0) 08/18/21 00:06 Hct 44.2 % (36.0-45.0) 08/18/21 00:06 Plt Count 184 K/uL (152-406) 08/18/21 00:06 PT 15.7 SECONDS (9.5-12.5) H 08/18/21 00:06 INR 1.36 08/18/21 00:06 Sodium 136 mmol/L (136-145) 08/18/21 05:02 Potassium 4.0 mmol/L (3.5-5.1) 08/18/21 05:02 BUN 13 mg/dL (7-18) 08/18/21 05:02 Creatinine 1.00 mg/dL (0.55-1.3) 08/18/21 05:02 Glucose 301 mg/dL (74-106) H 08/18/21 05:02 Phosphorus 3.8 mg/dL (2.5-4.9) 08/18/21 05:02 Magnesium 1.8 08/18/21 05:02 Total Bilirubin 0.5 mg/dL (0.2-1.0) 08/18/21 05:02 AST 15 U/L (15-37) 08/18/21 05:02 ALT 31 U/L (12-78) 08/18/21 05:02 Alkaline Phosphatase 62 U/L (45-117) 08/18/21 05:02 Triglycerides 321 mg/dL (<150) H 08/18/21 05:02 Cholesterol 269 mg/dL (<200) H 08/18/21 05:02 HDL Cholesterol 28 mg/dL (40-60) L 08/18/21 05:02 Cholesterol/HDL Ratio 9.61 08/18/21 05:02 Home Medications: ALPRAZolam [Xanax*] 1 mg PO BID 07/24/15 Digoxin [Digitek] 125 mcg PO DAILY 07/24/15 Folic Acid/Vit B Complex and C [Balanced B-Complex Caplet] 400 mcg PO BEDTIME 07/24/15 Cholecalciferol (Vitamin D3) [Vitamin D 5,000 IU Cap*] 1 cap PO DAILY 07/29/18 glipiZIDE [Glipizide] 10 mg PO BID 02/28/20 Aspirin [Aspirin EC 81 MG] 81 mg PO DAILY #30 tablet. 02/29/20 Apixaban [Eliquis] 5 mg PO BID 30 Days #60 tablet 03/02/20 Atorvastatin Calcium [Lipitor] 40 mg PO BEDTIME #30 tab 08/18/21 New Medications: Atorvastatin Calcium [Lipitor] 40 mg PO BEDTIME #30 tab Diet: ADA Activity: Ad nabil Followup: Anthony Jean MD [ACTIVE - CAN ADMIT] - 1-2 Weeks Hilario Dooley MD [Primary Care Provider] - 1 Week
--- NOTE | 2021-08-18 13:42 | RAD REPORT ---
EXAM DESCRIPTION: CT - Pelvis Wo Cont - 08/18/2021 5:22 am CLINICAL HISTORY: 66 years Female, LOWER BACK PAIN COMPARISON: None. TECHNIQUE: Multiple, helical axial tomographic images were obtained of the lumbar spine and pelvis w ithout intravenous contrast. Coronal and sagittal reformatted images were obtained. This exam was per formed according to our departmental dose-optimization program, which includes automated exposure con trol, adjustment of the mA and/or kV according to patient size and/or use of iterative reconstruction technique. FINDINGS: No evidence of an acute fracture of the lumbar spine. Multilevel mild osteophyte formation is demonstrated. Facet degenerative changes of the lower lumbar spine are present. There is central canal narrowing at L2-3, L3-L4, and L4-5. There is neuroforaminal narrowing at L4-L5 and L3-L4. No evidence of acute fracture of the pelvis. No dislocation. Post hysterectomy changes noted. Aortoil iac atherosclerosis is present. Multiple calcified stones in the gallbladder are present. Aortoiliac atherosclerosis is present. IMPRESSION: 1. No evidence of an acute fracture of the lumbar spine or pelvis. 2. Degenerative changes of the lumbar spine. 3. Cholelithiasis. Electronically signed by: Hao Ivy MD 08/18/2021 1:57 AM STRUCTURAL STEEL EQUIPMENT ERECTOR Due to temporary technical issues with the PACS/Fluency reporting system, reports are being signed by the in house radiologists without review as a courtesy to insure prompt reporting. The interpreting radiologist is fully responsible for the content of the report.
[2021-08-18 13:58] VITALS: BP 147/86; TEMP 97
[2021-08-18 14:15] VITALS: O2SAT 95
--- NOTE | 2021-08-18 15:29 | RAD REPORT ---
EXAM DESCRIPTION: CTSpine Lumbar Wo Con08/18/2021 5:22 am CLINICAL HISTORY: 66 years Female, LOWER BACK PAIN COMPARISON: None. TECHNIQUE: Multiple, helical axial tomographic images were obtained of the lumbar spine and pelvis w ithout intravenous contrast. Coronal and sagittal reformatted images were obtained. This exam was per formed according to our departmental dose-optimization program, which includes automated exposure con trol, adjustment of the mA and/or kV according to patient size and/or use of iterative reconstruction technique. FINDINGS: No evidence of an acute fracture of the lumbar spine. Multilevel mild osteophyte formation is demonstrated. Facet degenerative changes of the lower lumbar spine are present. There is central canal narrowing at L2-3, L3-L4, and L4-5. There is neuroforaminal narrowing at L4-L5 and L3-L4. No evidence of acute fracture of the pelvis. No dislocation. Post hysterectomy changes noted. Aortoil iac atherosclerosis is present. Multiple calcified stones in the gallbladder are present. Aortoiliac atherosclerosis is present. IMPRESSION: 1. No evidence of an acute fracture of the lumbar spine or pelvis. 2. Degenerative changes of the lumbar spine. 3. Cholelithiasis. Electronically signed by: Hao Ivy MD 08/18/2021 1:57 AM TOUR LEADER Due to temporary technical issues with the PACS/Fluency reporting system, reports are being signed by the in house radiologists without review as a courtesy to insure prompt reporting. The interpreting radiologist is fully responsible for the content of the report.
[2021-08-18] MEDS ORDERED: ATORVASTATIN 40 MG TAB PO SCH (21:00)
== END 2021-08-18 13:58 | disposition home or self-care (01) ==
LOC: ER 22:10 → ERHOLD 08-18 02:47
PROVIDERS: ADMIT Internal Medicine; ATTEND Internal Medicine
DX: M79.605 Pain in left leg (principal); I48.20 Chronic atrial fibrillation, unspecified; E78.5 Hyperlipidemia, unspecified; E11.9 Type 2 diabetes mellitus without complications; M54.9 Dorsalgia, unspecified; I10 Essential (primary) hypertension; R07.9 Chest pain, unspecified; Z79.01 Long term (current) use of anticoagulants; F17.210 Nicotine dependence, cigarettes, uncomplicated; Z85.820 Personal history of malignant melanoma of skin; Z20.822 Contact with and (suspected) exposure to COVID-19
CPT/HCPCS: 93005; 85025; 80048; 36415; 83735 ×2; 84100; 85610; 80061; 80162; 82947; 80076; 84443; 83036; 84484 ×3; 84439; 80053; 83880; 72131; 72192; 71045; 73552; 93926; 93971; 97161; 96375; 96374; 99285; U0003; J1100; G0378 ×2; J2270; J2405

== ENCOUNTER 2021-12-15 12:28 | Emergency (ER) | payer OTHER ==
[2021-12-15] MEDS ORDERED: KETOROLAC 30 MG/ML INJ ONE (13:39)
[2021-12-15] MEDS ORDERED: dexAMETHasone 10 MG/ML VIAL ONE (13:39)
--- NOTE | 2021-12-15 15:14 | EDPHYS ---
Physician Documentation [facility] Name: Dimple Cisneros Age: 66 yrs Sex: Female : 1955 Arrival Date: 12/15/2021 Time: 12:31 Bed 10 Private MD: ED Physician Alvaro Trevizo HPI: 12/15 13:57 This 66 yrs old Female presents to ER via Wheelchair with complaints of sciatica. rn 13:57 The patient presents with pain. The complaints affect the left leg and buttocks. Onset: rn The symptoms/episode began/occurred 3 week(s) ago. Modifying factors: The symptoms are alleviated by nothing. the symptoms are aggravated by movement. Severity of symptoms: At their worst the symptoms were moderate, in the emergency department the symptoms are unchanged. The patient has experienced similar episodes in the past. The patient has been recently seen by a physician:. Pt reports chronic sciatic pain, worse over last 3 weeks, no injury, no trauma, seen by pcp recently for this and prescribed gabapentin which is only helping slightly. No bowel/bladder issues. No chest or abd pain.. Historical: - Allergies: 13:05 Augmentin; ap3 13:05 Lortab; ap3 13:06 ANTIHISTAMINES; ap3 - Home Meds: 13:05 alprazolam 1 mg Oral tab 1 tab BID for Anxiety [Active]; digoxin 125 mcg Oral tab 1 tab ap3 once daily [Active]; glipizide 10 mg Oral tab 1 tab 2 times per day [Active]; folic acid 400 mcg Oral tab 1 tab once daily [Active]; gabapentin 300 mg oral cap 1 cap bid [Active]; - PMHx: 13:05 Atrial Fib; Diabetes - NIDDM; Hypertension; melanoma; ap3 - PSHx: 13:05 melanoma's removed; ap3 - Immunization history:: Client reports having NOT received the Covid vaccine. - Social history:: Smoking status: Patient reports the use of cigarette tobacco products, smokes one-half pack cigarettes per day. - Family history:: not pertinent. - Hospitalizations: : No recent hospitalization is reported. ROS: 13:57 Constitutional: Negative for fever, chills, and weight loss, Cardiovascular: Negative rn for chest pain, palpitations, and edema, Respiratory: Negative for shortness of breath, cough, wheezing, and pleuritic chest pain, Abdomen/GI: Negative for abdominal pain, nausea, vomiting, diarrhea, and constipation, Back: Negative for injury and pain, MS/Extremity: Negative for injury and deformity, Skin: Negative for injury, rash, and discoloration, Neuro: Negative for headache, weakness, numbness, tingling, and seizure. Exam: 14:03 Constitutional: This is a well developed, well nourished patient who is awake, alert, rn appears uncomfortable, sitting in chair, while leaning onto right side Head/Face: Normocephalic, atraumatic. Cardiovascular: Regular rate and rhythm. No pulse deficits. Respiratory: No increased work of breathing, no retractions or nasal flaring. Abdomen/GI: Soft, non-tender Skin: Warm, dry MS/ Extremity: Pulses equal, no cyanosis. Neuro: Awake and alert, GCS 15, oriented to person, place, time, and situation. Cranial nerves II-XII grossly intact. Motor strength 5/5 in all extremities. Sensory grossly intact. Cerebellar exam normal. Vital Signs: 13:03 BP 142 / 70; Pulse 99; Resp 17; Temp 98.2; Pulse Ox 100% ; Weight 86.64 kg; Height 5 ap3 ft. (152.40 cm); Pain 10/10; 13:03 Body Mass Index 37.30 (86.64 kg, 152.40 cm) ap3 MDM: 13:15 Patient medically screened. rn 15:12 Differential diagnosis: sciatica. Data reviewed: vital signs, nurses notes, and as a rn result, I will discharge patient. Counseling: I had a detailed discussion with the patient and/or guardian regarding: the historical points, exam findings, and any diagnostic results supporting the discharge/admit diagnosis, the need for outpatient follow up, to return to the emergency department if symptoms worsen or persist or if there are any questions or concerns that arise at home. Response to treatment: the patient's symptoms have markedly improved after treatment, and as a result, I will discharge patient. Special discussion: I discussed with the patient/guardian in detail that at this point there is no indication for admission to the hospital. It is understood, however, that if the symptoms persist or worsen the patient needs to return immediately for re-evaluation. Based on the history and exam findings, there is no indication for further emergent testing or inpatient evaluation. I discussed with the patient/guardian the need to see the back specialist for further evaluation of the symptoms. I discussed with the patient/guardian the need to see the primary care provider for further evaluation of the symptoms. 12/15 13:24 Order name: IV Start; Complete Time: 13:40 rn Administered Medications: 13:40 Drug: Ketorolac 30 mg Route: IVP; Site: right hand; iw 14:53 Follow up: Response: No adverse reaction; Pain is decreased aa5 13:41 Drug: Decadron - Dexamethasone 10 mg Route: IVP; Site: right hand; iw 14:53 Follow up: Response: No adverse reaction; Pain is decreased aa5 Disposition Summary: 12/15/21 15:13 Discharge Ordered Location: Home rn Problem: an ongoing problem rn Symptoms: have improved rn Condition: Stable rn Diagnosis - Radiculopathy, lumbosacral region rn Followup: rn - With: Private Physician - When: As needed - Reason: Recheck today's complaints, Re-evaluation by your physician Discharge Instructions: - Discharge Summary Sheet rn - Lumbosacral Radiculopathy rn Forms: - Medication Reconciliation Form rn - Thank You Letter rn - Antibiotic outpatient surgery rn - Prescription Opioid Use rn Prescriptions: - Cyclobenzaprine 10 mg Oral Tablet - take 1 tablet by ORAL route every 8 hours As needed; 15 tablet; Refills: 0, rn Product Selection Permitted - Medrol (Vitor) 4 mg Oral Tablets, Dose Pack - take 1 tablet by ORAL route as directed - follow package instructions; 1 rn packet; Refills: 0, Product Selection Permitted Signatures: Marianna Marques RN RN Alvrao Trevizo MD MD rn Prokisch, Amanda RN RN ap3 Eva Bae RN aa5
--- NOTE | 2021-12-15 15:14 | ER ---
Nurse's Notes [facility] Name: Dimple Cisneros Age: 66 yrs Sex: Female : 1955 Arrival Date: 12/15/2021 Time: 12:31 Bed 10 Private MD: Diagnosis: Radiculopathy, lumbosacral region Presentation: 12/15 13:03 Chief complaint: Patient states: her sciatic nerve is flared up to a point where she ap3 can't get comfortable enough to sleep. patient reports seeing her PCP recently who started her on gabapentin, but reports she isn't getting any relief from any of her medications. Coronavirus screen: At this time, the client does not indicate any symptoms associated with coronavirus-19. Ebola Screen: No symptoms or risks identified at this time. Initial Sepsis Screen: Does the patient meet any 2 criteria? No. Patient's initial sepsis screen is negative. Does the patient have a suspected source of infection? No. Patient's initial sepsis screen is negative. Risk Assessment: Do you want to hurt yourself or someone else? Patient reports no desire to harm self or others. Onset of symptoms was November 24, 2021. 13:03 Method Of Arrival: Wheelchair ap3 13:03 Acuity: GERBER 4 ap3 Triage Assessment: 13:07 General: Appears uncomfortable, Behavior is calm. Pain: Complains of pain in buttocks ap3 and right leg Pain currently is 10 out of 10 on a pain scale. Neuro: Level of Consciousness is awake, alert, obeys commands, Oriented to person, place, time, situation, Appropriate for age Speech is normal. Cardiovascular: Patient's skin is warm and dry. Respiratory: Airway is patent Respiratory effort is even, unlabored. Musculoskeletal: Reports pain in buttocks and left leg. Historical: - Allergies: 13:05 Augmentin; ap3 13:05 Lortab; ap3 13:06 ANTIHISTAMINES; ap3 - Home Meds: 13:05 alprazolam 1 mg Oral tab 1 tab BID for Anxiety [Active]; digoxin 125 mcg Oral tab 1 tab ap3 once daily [Active]; glipizide 10 mg Oral tab 1 tab 2 times per day [Active]; folic acid 400 mcg Oral tab 1 tab once daily [Active]; gabapentin 300 mg oral cap 1 cap bid [Active]; - PMHx: 13:05 Atrial Fib; Diabetes - NIDDM; Hypertension; melanoma; ap3 - PSHx: 13:05 melanoma's removed; ap3 - Immunization history:: Client reports having NOT received the Covid vaccine. - Social history:: Smoking status: Patient reports the use of cigarette tobacco products, smokes one-half pack cigarettes per day. - Family history:: not pertinent. - Hospitalizations: : No recent hospitalization is reported. Screenin:07 Abuse screen: Denies threats or abuse. Nutritional screening: No deficits noted. ap3 Tuberculosis screening: No symptoms or risk factors identified. Assessment: 13:20 General: Appears in no apparent distress. Behavior is calm, cooperative. Pain: iw Complains of pain in left leg and right leg. Neuro: Level of Consciousness is awake, alert, obeys commands, Oriented to person, place, time, situation. Cardiovascular: Patient's skin is warm and dry. Respiratory: Respiratory effort is even, unlabored, Respiratory pattern is regular, symmetrical. Derm: Skin is fragile. Musculoskeletal: Range of motion: intact in all extremities. 14:22 Reassessment: Patient appears in no apparent distress at this time. Patient and/or iw family updated on plan of care and expected duration. Pain level reassessed. Patient is alert, oriented x 3, equal unlabored respirations, skin warm/dry/pink. Patient states feeling better. Patient states symptoms have improved. 14:53 Reassessment: Pt resting with eyes closed, pt easy to awaken to verbal stimuli. Pt aa5 states feeling better and is able to rest now. . General: Appears comfortable. Vital Signs: 13:03 BP 142 / 70; Pulse 99; Resp 17; Temp 98.2; Pulse Ox 100% ; Weight 86.64 kg; Height 5 ap3 ft. (152.40 cm); Pain 10/10; 13:03 Body Mass Index 37.30 (86.64 kg, 152.40 cm) ap3 ED Course: 12:31 Patient arrived in ED. as 13:05 Triage completed. ap3 13:07 Arm band placed on left wrist. ap3 13:15 Alvaro Trevizo MD is Attending Physician. rn 13:24 Marianna Marques RN is Primary Nurse. iw 13:55 Inserted saline lock: 22 gauge in right hand, using aseptic technique. iw 14:22 No provider procedures requiring assistance completed. iw Administered Medications: 13:40 Drug: Ketorolac 30 mg Route: IVP; Site: right hand; iw 14:53 Follow up: Response: No adverse reaction; Pain is decreased aa5 13:41 Drug: Decadron - Dexamethasone 10 mg Route: IVP; Site: right hand; iw 14:53 Follow up: Response: No adverse reaction; Pain is decreased aa5 Outcome: 15:13 Discharge ordered by . rn 15:33 Patient left the ED. iw Signatures: Angle Martin Irene, RN RN iw Alvaro Trevizo MD MD rn Calderon, Audri RN RN aa5 Sasha Rowell RN RN ap3
[2021-12-15 15:38] VITALS: BP 142/70; TEMP 98.2; O2SAT 100
== END 2021-12-15 15:33 | disposition home or self-care (01) ==
LOC: ER 12:28
DX: M54.17 Radiculopathy, lumbosacral region (principal); E11.9 Type 2 diabetes mellitus without complications; I10 Essential (primary) hypertension; I48.91 Unspecified atrial fibrillation; Z88.1 Allergy status to other antibiotic agents; Z88.5 Allergy status to narcotic agent; Z88.8 Allergy status to other drugs, medicaments and biological substances
CPT/HCPCS: 96375; 96374; 99283; J1100